=== PATIENT | female | born 1970 | race Caucasian/White ===

== ENCOUNTER 2018-06-21 16:32 | Observation (INO) | payer BC, SELFPAY ==
[2018-06-21] VITALS (15 sets, daily range): BP systolic 95–144; BP diastolic 54–91; PULSE 70–124; RESP 16–20; TEMP 35.9–36.8; O2SAT 95–100
--- NOTE | 2018-06-21 16:54 | DI.RAD_ITS ---
SYMPTOM/DIAGNOSIS: ABD PAIN ACUTE ABDOMINAL SERIES: Routine examination. Comparison is made with 07/29/15. PA CHEST: The heart is normal in size. The lungs are clear. The mediastinal structures and pleura appear intact. CONCLUSION: Normal chest. FLAT AND UPRIGHT ABDOMEN: There are dilated loops of air filled small bowel in the central abdomen with air fluid levels. There is a paucity of air seen in the colon. The findings are suspicious for a small bowel obstruction. No organomegaly or pneumoperitoneum is seen. The bones appear intact. IMPRESSION: Findings suspicious for a small bowel obstruction.
[2018-06-21] MEDS: Ketorolac 15 MG/ML VIAL IVP (17:10)
[2018-06-21] MEDS: Normal Saline 1,000 ML 1000 ML IV (17:11)
[2018-06-21 17:15] LABS: Absolute Eosinophil Count 0.07 k/cumm (0.0-0.7); Absolute Lymphocyte Count 1.33 k/cumm (1.2-3.4); Absolute Monocyte Count 0.69 k/cumm (0.11-0.7); Basophils % 0.4; Eosinophils % 0.8; HCT 43.8 % (36.0-46.0); Immature Grans % 0.3; Lymphocytes % 14.5; Mean Corp. HGB Concentration 34.2 g/dL (32.0-36.0); Mean Corpuscular Volume 84.6 fL (80-95); Monocytes % 7.5; Neutrophils % 76.5; Platelet Count 418 x1000/uL (130-400); RBC 5.18 m/cumm (4.00-5.20); RBC Distribution Width 13.6 % (11.7-14.6); White Blood Cell Count 9.16 k/cumm (4.4-10.8)
[2018-06-21 17:16] LABS: Abs Immature Grans 0.03 k/cumm (0.0-0.09); Absolute Basophil Count 0.04 k/cumm (0.0-0.2)
--- NOTE | 2018-06-21 17:18 | W.ED.GENAD ---
Discharge Plan Disposition Patient Disposition: [facility] INPATIENT Condition: Fair Discharge Details Chief Complaint: Abd Prob Clinical Impression: Small bowel obstruction, Crohns disease of small intestine Reason For Visit: SMALL BOWEL OBSTRUCTION Admit Date/Time: 06/21/18 18:56 Admit Provider: Eliud Myers Attending Provider: Eliud Myers Primary Care Provider: Roxana Cardenas ED Provider: Brian Leiva Discharge Data Discharge Date/Time-TO BE ENTERED AT DEPARTURE: 06/21/18 19:50 Medical Decision Making Patient presenting to the emergency department with chief complaint of abdominal pain due to Crohn's. Patient states that she ate a rutabaga that may have caused her symptoms to flareup. Yesterday evening she did take 40 mg of prednisone today she has taken multiple doses of ibuprofen but has noticed a slow steady increase of her discomfort throughout today but yesterday the prednisone did seem to help. Patient did attempt to call her primary care provider which requested she talk with her supervisor/port director and she was unable to get a hold of them. Patient denies normal bowel movements, some nausea and vomiting of clear fluids and liquids, denies any fever or chills. Plan to check labs, do plain film imaging, give prednisone, ketorolac due to patient not wanting narcotic pain medication, and liter of fluids. Patient states that this flareup feels similar to her previous ones and is more mild in nature compared to other ones that she has needed to be admitted for. Review of Labs show signs of inflammation with elevated CRP and ESR mild hyponatremia and otherwise nondiagnostic labs including no noted leukocytosis. X-ray imaging does show small bowel obstruction. Feel that this may be due to inflammatory changes with her Crohn's. Patient was reassessed and showed no improvement and stated only mild pain reduction after receiving ketorolac. Patient given order for morphine and general surgeon was contacted. Spoke with Dr. Cloud who agreed to come and evaluate the patient for admission to inpatient services. Patient was in agreement with this plan of care. HPI General Mode of arrival: ambulatory. Date/Time Provider Initiated Documentation: 06/21/18 16:39. Limitations to Documentation: no limitations. Information obtained by: patient, RN/, RN notes reviewed and old records reviewed. History of Present Illness 47 year old F presents to the emergency department with the chief complaint of Abdominal pain, Crohn's flareup, described as similar to prior episodes, with intensity rated at 8. Quality is described as sharp and other (crampy), and is localized to the abdomen. Patient reports no radiation. Patient started experiencing this day(s) (1) and it has been constant. No relieving factors improve symptom(s), Other factors that worsen symptoms (Possibly some food she ate 2 days ago) . Patient notes no other symptoms.. Patient did receive the following treatments prior to arrival, NSAID and other (40mg predisone she took yesterday) Related Data Home Medications Medication Instructions Recorded Confirmed omega-3 fatty acids-fish oil [Fish 1 ea PO DAILY 09/07/17 06/21/18 Oil] Previous Rx's Medication Instructions Recorded albuterol sulfate [ProAir HFA] 1 - 2 puff INHALATION Q4-6H PRN #3 11/29/17 inhaler nicotine 14 mg/24 hr daily 1 patch TD DAILY #14 each 06/17/18 transdermal patch nicotine 21 mg/24 hr daily 1 patch TD DAILY #14 each 06/17/18 transdermal patch nicotine 7 mg/24 hr daily 1 patch TD Q24H #14 each 06/17/18 transdermal patch Allergies Allergy/AdvReac Type Severity Reaction Status Date / Time No Known Allergies Allergy Unverified 12/19/17 11:39 General Stated Complaint: Abd Prob JUMA: 3 Review of Systems Constitutional Denies body ache(s), Denies chills and Denies fever(s) Cardiovascular Denies chest pain and Denies dyspnea Respiratory Denies dyspnea Gastrointestinal Reports as per HPI, Reports abdominal pain, Denies melena, Reports bloating, Denies coffee ground emesis, Denies diarrhea, Reports nausea, Reports vomiting and Denies hematemesis Genitourinary Denies dysuria Integumentary/Breasts Denies rash Neurologic Denies confusion and Denies sensory deficit Psychiatric Denies confusion [facility] Family History Mother Neoplasm Father Substance abuse Neoplasm Sister No problems noted. Sister No problems noted. Brother No problems noted. Brother No problems noted. Medical History Asthma Crohn's disease Tobacco use disorder Social History Smoking/Tobacco Use Status: Current every day Surgical History Colonoscopy w/ BX (11/27/16) Exam Const General: cooperative, in distress (holding abd) moderate and not ill appearing Orientation: alert, awake and oriented x3 HENMT Mouth: moist mucous membranes Resp Effort & Inspection: normal respiratory effort, able to speak in complete sentences and no respiratory distress Auscultation: clear to auscultation bilaterally Cardio Rate: regular rate Rhythm: regular rhythm Heart Sounds: S1 normal and S2 normal GI Inspection: non-distended Palpation: guarding other (Throughout) and tender in the LLQ, in the LUQ and periumbilically Auscultation: hypoactive bowel sounds Back/Spine/Pelvis Back: no CVA tenderness Skin General skin exam: no rashes or lesions noted Neuro General: alert, awake, oriented x3, moves all extremities and no focal motor deficits Sensory Exam: no sensory deficits noted Course Vital Signs Temperature 36.8 C 06/21/18 16:36 Pulse 124 H 06/21/18 16:36 Respiratory Rate 20 06/21/18 16:36 Blood Pressure 144/91 H 06/21/18 16:36 Pulse Oximetry 95 06/21/18 16:36 Temperature 36.8 C 06/21/18 16:36 Pulse 124 H 06/21/18 16:36 Respiratory Rate 20 06/21/18 16:36 Blood Pressure 144/91 H 06/21/18 16:36 Pulse Oximetry 95 06/21/18 16:36 Lab/Test Results Lab/Test Results: Laboratory Tests 06/21/18 16:57 WBC 9.16 RBC 5.18 Hgb 15.0 Hct 43.8 MCV 84.6 MCH 29.0 MCHC 34.2 RDW 13.6 Plt Count 418 H MPV 10.0 Immature Gran % 0.3 Neutrophils % 76.5 Lymphocytes % 14.5 Monocytes % 7.5 Eosinophils % 0.8 Basophils % 0.4 Absolute Neutrophils 7.00 H Absolute Lymphocytes 1.33 Absolute Monocytes 0.69 Absolute Eosinophils 0.07 Absolute Basophils 0.04
--- NOTE | 2018-06-21 17:25 | ED.GENADUL_ITS ---
Discharge Plan Disposition Patient Disposition: [facility] INPATIENT Condition: Fair Discharge Details Chief Complaint: Abd Prob Clinical Impression: Small bowel obstruction, Crohns disease of small intestine Reason For Visit: SMALL BOWEL OBSTRUCTION Admit Date/Time: 06/21/18 18:56 Admit Provider: Eliud Myers Attending Provider: Eliud Myers Primary Care Provider: Roxana Cardenas ED Provider: Brian Leiva Discharge Data Discharge Date/Time-TO BE ENTERED AT DEPARTURE: 06/21/18 19:50 Medical Decision Making Patient presenting to the emergency department with chief complaint of abdominal pain due to Crohn's. Patient states that she ate a rutabaga that may have caused her symptoms to flareup. Yesterday evening she did take 40 mg of prednisone today she has taken multiple doses of ibuprofen but has noticed a slow steady increase of her discomfort throughout today but yesterday the prednisone did seem to help. Patient did attempt to call her primary care provider which requested she talk with her pediatric neuropsychologist and she was unable to get a hold of them. Patient denies normal bowel movements, some nausea and vomiting of clear fluids and liquids, denies any fever or chills. Plan to check labs, do plain film imaging, give prednisone, ketorolac due to patient not wanting narcotic pain medication, and liter of fluids. Patient states that this flareup feels similar to her previous ones and is more mild in nature compared to other ones that she has needed to be admitted for. Review of Labs show signs of inflammation with elevated CRP and ESR mild hyponatremia and otherwise nondiagnostic labs including no noted leukocytosis. X-ray imaging does show small bowel obstruction. Feel that this may be due to inflammatory changes with her Crohn's. Patient was reassessed and showed no improvement and stated only mild pain reduction after receiving ketorolac. Patient given order for morphine and general surgeon was contacted. Spoke with Dr. Cloud who agreed to come and evaluate the patient for admission to inpatient services. Patient was in agreement with this plan of care. HPI General Mode of arrival: ambulatory . Date/Time Provider Initiated Documentation: 06/21/18 16:39 . Limitations to Documentation: no limitations . Information obtained by: patient, RN/, RN notes reviewed and old records reviewed . History of Present Illness 47 year old F presents to the emergency department with the chief complaint of Abdominal pain, Crohn's flareup, described as similar to prior episodes, with intensity rated at 8. Quality is described as sharp and other (crampy), and is localized to the abdomen. Patient reports no radiation. Patient started experiencing this day(s) (1) and it has been constant. No relieving factors improve symptom(s), Other factors that worsen symptoms (Possibly some food she ate 2 days ago) . Patient notes no other symptoms.. Patient did receive the following treatments prior to arrival, NSAID and other (40mg predisone she took yesterday) Related Data Home Medications Medication Instructions Recorded Confirmed omega-3 fatty acids-fish oil [Fish 1 ea PO DAILY 09/07/17 06/21/18 Oil] Previous Rx's Medication Instructions Recorded albuterol sulfate [ProAir HFA] 1 - 2 puff INHALATION Q4-6H PRN #3 11/29/17 inhaler nicotine 14 mg/24 hr daily 1 patch TD DAILY #14 each 06/17/18 transdermal patch nicotine 21 mg/24 hr daily 1 patch TD DAILY #14 each 06/17/18 transdermal patch nicotine 7 mg/24 hr daily 1 patch TD Q24H #14 each 06/17/18 transdermal patch Allergies Allergy/AdvReac Type Severity Reaction Status Date / Time No Known Allergies Allergy Unverified 12/19/17 11:39 General Stated Complaint: Abd Prob JUMA: 3 Review of Systems Constitutional Denies body ache(s), Denies chills and Denies fever(s) Cardiovascular Denies chest pain and Denies dyspnea Respiratory Denies dyspnea Gastrointestinal Reports as per HPI, Reports abdominal pain, Denies melena, Reports bloating, Denies coffee ground emesis, Denies diarrhea, Reports nausea, Reports vomiting and Denies hematemesis Genitourinary Denies dysuria Integumentary/Breasts Denies rash Neurologic Denies confusion and Denies sensory deficit Psychiatric Denies confusion [facility] Family History Mother Neoplasm Father Substance abuse Neoplasm Sister No problems noted. Sister No problems noted. Brother No problems noted. Brother No problems noted. Medical History Asthma Crohn's disease Tobacco use disorder Social History Smoking/Tobacco Use Status: Current every day Surgical History Colonoscopy w/ BX (11/27/16) Exam Const General: cooperative, in distress (holding abd) moderate and not ill appearing Orientation: alert, awake and oriented x3 HENMT Mouth: moist mucous membranes Resp Effort & Inspection: normal respiratory effort, able to speak in complete sentences and no respiratory distress Auscultation: clear to auscultation bilaterally Cardio Rate: regular rate Rhythm: regular rhythm Heart Sounds: S1 normal and S2 normal GI Inspection: non-distended Palpation: guarding other (Throughout) and tender in the LLQ, in the LUQ and periumbilically Auscultation: hypoactive bowel sounds Back/Spine/Pelvis Back: no CVA tenderness Skin General skin exam: no rashes or lesions noted Neuro General: alert, awake, oriented x3, moves all extremities and no focal motor deficits Sensory Exam: no sensory deficits noted Course Vital Signs Temperature 36.8 C 06/21/18 16:36 Pulse 124 H 06/21/18 16:36 Respiratory Rate 20 06/21/18 16:36 Blood Pressure 144/91 H 06/21/18 16:36 Pulse Oximetry 95 06/21/18 16:36 Temperature 36.8 C 06/21/18 16:36 Pulse 124 H 06/21/18 16:36 Respiratory Rate 20 06/21/18 16:36 Blood Pressure 144/91 H 06/21/18 16:36 Pulse Oximetry 95 06/21/18 16:36 Lab/Test Results Lab/Test Results: Laboratory Tests 06/21/18 16:57 WBC 9.16 RBC 5.18 Hgb 15.0 Hct 43.8 MCV 84.6 MCH 29.0 MCHC 34.2 RDW 13.6 Plt Count 418 H MPV 10.0 Immature Gran % 0.3 Neutrophils % 76.5 Lymphocytes % 14.5 Monocytes % 7.5 Eosinophils % 0.8 Basophils % 0.4 Absolute Neutrophils 7.00 H Absolute Lymphocytes 1.33 Absolute Monocytes 0.69 Absolute Eosinophils 0.07 Absolute Basophils 0.04
[2018-06-21 17:26] LABS: Albumin 2.8 g/dL (3.4-5.0); BUN 14 mg/dL (7-18); Bilirubin, Total 0.4 mg/dL (0.2-1.0); C-Reactive Protein 4.33 mg/dL (0.0-0.3); CREATININE 0.66 mg/dL (0.55-1.02); Calcium 8.5 mg/dL (8.5-10.1); Glucose 113 mg/dL (70-100)
[2018-06-21 17:27] LABS: ALT 13 U/L (12-78); AST 10 U/L (15-37); Alkaline Phosphatase 92 U/L (46-116); Anion Gap 8.8 mmol/L (3-11); CO2 27.2 mmol/L (21.0-32.0); Chloride 99 mmol/L (98-107); Potassium 3.6 mmol/L (3.5-5.1); Sodium 135 mmol/L (136-145)
--- NOTE | 2018-06-21 17:38 | DI.VRAD_ITS ---
EXAM: XR Abdomen 2 Views With XR Chest CLINICAL HISTORY: 47 years old, female; Pain; Abdominal pain TECHNIQUE: Frontal view of the chest, frontal view of the abdomen/pelvis and upright or decubitus view of the abdomen. COMPARISON: CR ABD FLAT UPRIGHT PA CHEST 12/04/2016 1:22 PM FINDINGS: Lungs: Unremarkable. No consolidation. Pleural space: Unremarkable. No pneumothorax. Heart: Unremarkable. No cardiomegaly. Mediastinum: Unremarkable. Intraperitoneal space: No free air. Gastrointestinal tract: Dilated loops of air-filled small bowel within the midabdomen with fluid levels on the upright examination consistent with small bowel obstruction. Relatively little gas within the colon. Organs: Unremarkable as visualized. Bones/joints: Unremarkable. IMPRESSION: Small bowel obstruction. Dictated and Authenticated by: Lonnie Lima MD. Ordering:ISA JEFFERSON MD
[2018-06-21] MEDS: predniSONE 20 MG TAB 60 MG PO (17:50)
[2018-06-21] MEDS: Ondansetron 4 MG/2 ML VIAL IVP (17:51)
[2018-06-21] MEDS: MORPHine 10 MG/ML VIAL 2 MG IVP (17:54)
[2018-06-21 18:07] LABS: ESR 28 MM/HR (0-20)
--- NOTE | 2018-06-21 19:13 | HPE_ITS ---
Date of service: 06/21/18 Time of Service: 19:07 Assessment and Plan (1) Small bowel obstruction: Start date: 06/20/18 Current visit: No Status: Acute 47-year-old woman with small bowel obstruction most likely secondary to Crohn's exacerbation. Will admit for conservative therapy: IV antibiotics, steroids, pain control, bowel rest. We will hold off on placing NG tube unless patient starts to have intractable nausea vomiting. Further recommendations be pending clinical and diagnostic findings History of Present Illness Chief Complaint: Small bowel obstruction Narrative: 47-year-old woman presenting to the emergency room with the 24 hours of crampy abdominal pain. She does have a history of Crohn's disease, and has had similar presentations with onset of a Crohn's flare. She usually takes steroids for the flare, but ran out after the onset of this crampy abdominal pain. She did have some nausea and vomiting associated with this. She denies any fever, chills, fatigue, malaise, weight loss. Her pain became progressively worse. She presented to the emergency room where abdominal x- rays demonstrated small bowel obstruction. Surgery was consulted. Review of Systems Constitutional Reports anorexia, Denies chills, Denies fatigue, Denies fever(s), Denies headache(s), Denies lethargy, Denies malaise, Reports night sweats and Reports poor appetite Eyes Patient Denies diplopia and Denies loss of vision ENT Denies vertigo, Denies dizziness, Denies headache(s), Denies epistaxis, Denies tinnitus and Denies sore throat Cardiovascular Denies chest pain, Denies syncope, Denies radiating jaw, neck or arm pain, Denies palpitations, Denies dyspnea and Denies dyspnea on exertion Respiratory Denies chest congestion, Denies cough, Denies dyspnea, Denies dyspnea on exertion and Denies wheezing Gastrointestinal Reports abdominal pain, Reports bloating, Denies change in bowel habits, Denies coffee ground emesis, Reports cramping, Denies nausea and Denies vomiting Musculoskeletal Denies back pain, Denies myalgias, Denies atrophy, Denies deformity and Denies arthralgias Integumentary/Breasts Denies pruritus, Denies lesions and Denies rash Neurologic Denies abnormal movements, Denies behavioral changes, Denies vertigo, Denies dizziness, Denies syncope, Denies headache(s), Denies focal weakness, Denies loss of vision, Denies convulsions, Denies seizure-like activity and Denies tremor(s) Psychiatric Denies abnormal sleep pattern, Denies behavioral changes, Denies difficulty concentrating, Denies irritability and Denies mood swings Endocrine Denies fatigue and Denies palpitations Hematologic/Lymphatic Denies easy bleeding and Denies easy bruising Allergic/Immunologic Denies wheezing PFSH Family History Mother Neoplasm Father Substance abuse Neoplasm Sister No problems noted. Sister No problems noted. Brother No problems noted. Brother No problems noted. Medical History Asthma Crohn's disease Tobacco use disorder Social History Smoking/Tobacco Use Status: Current every day Surgical History Colonoscopy w/ BX (11/27/16) Meds Home Medications Medication Instructions Recorded Confirmed Type omega-3 fatty acids-fish oil [Fish 1 ea PO DAILY 09/07/17 06/21/18 History Oil] Allergies Allergy/AdvReac Type Severity Reaction Status Date / Time No Known Allergies Allergy Unverified 12/19/17 11:39 Exam Const General: cooperative, comfortable, no acute distress and well groomed Nutritional Appearance: thin Orientation: alert, awake and oriented x3 HENMT Head: normal to inspection, normocephalic and atraumatic Ears: hearing grossly normal bilaterally General nose exam: external nose normal and no nasal discharge Face and sinus: normal facial exam Mouth: oral mucosae normal Eyes General: appearance normal, both eyes and all related structures Sclera: sclerae normal Pupils: PERRL EOM: EOM intact bilaterally Neck Neck: normal visual inspection, trachea midline and supple Resp Effort & Inspection: normal respiratory effort, able to speak in complete sentences, no audible wheezes and not labored Cardio Jugular venous pressure: no JVD Rate: regular rate Rhythm: regular rhythm GI Inspection: distended (mild), no incisions and no obesity Palpation: soft and tender periumbilically; with no rebound tenderness Back/Spine/Pelvis Back: no CVA tenderness Skin General skin exam: no rashes or lesions noted and turgor normal Neuro General: moves all extremities, no focal motor deficits and CN's II-XI intact bilaterally Extrem General: normal to inspection, normal capillary refill and no clubbing, cyanosis or edema Psych Appearance: grossly normal Mental Status: mental status grossly normal Affect: normal affect Attitude: cooperative Judgment: judgment good Results Labs : 06/21/18 16:57 06/21/18 16:57 Laboratory Results - last 24 hr 06/21/18 06/21/18 06/21/18 16:57 16:57 16:57 WBC 9.16 RBC 5.18 Hgb 15.0 Hct 43.8 MCV 84.6 MCH 29.0 MCHC 34.2 RDW 13.6 Plt Count 418 H MPV 10.0 Abs Immat Gran (auto) Immature Gran % 0.3 Neutrophils % 76.5 Lymphocytes % 14.5 Monocytes % 7.5 Eosinophils % 0.8 Basophils % 0.4 Absolute Neutrophils 7.00 H Band Neutrophils Absolute Lymphocytes 1.33 Absolute Monocytes 0.69 Absolute Eosinophils 0.07 Absolute Basophils 0.04 Metamyelocytes Myelocytes Promyelocytes Nucleated RBCs Differential Comment Atypical Lymphocytes Other Cell Type RBC Morphology Polychromasia Hypochromasia Poikilocytosis Basophilic Stippling Anisocytosis Microcytosis Macrocytosis Spherocytes Target Cells Tear Drop Cells Ovalocytes Stomatocytes [place] Bodies [place] Cells Acanthocytes (Spur) Schistocytes ESR Sodium 135 L Potassium 3.6 Chloride 99 Carbon Dioxide 27.2 Anion Gap 8.8 BUN 14 Creatinine 0.66 Estimated GFR/1.73 m2 >= 60.00 Glucose 113 H Calcium 8.5 Magnesium Total Bilirubin 0.4 AST 10 L ALT 13 Alkaline Phosphatase 92 Troponin I C-Reactive Protein 4.33 H Total Protein 7.0 Albumin 2.8 L 06/21/18 06/21/18 06/21/18 16:57 17:44 17:44 WBC Cancelled RBC Cancelled Hgb Cancelled Hct Cancelled MCV Cancelled MCH Cancelled MCHC Cancelled RDW Cancelled Plt Count Cancelled MPV Cancelled Abs Immat Gran (auto) Cancelled Immature Gran % Cancelled Neutrophils % Cancelled Lymphocytes % Cancelled Monocytes % Cancelled Eosinophils % Cancelled Basophils % Cancelled Absolute Neutrophils Cancelled Band Neutrophils Cancelled Absolute Lymphocytes Cancelled Absolute Monocytes Cancelled Absolute Eosinophils Cancelled Absolute Basophils Cancelled Metamyelocytes Cancelled Myelocytes Cancelled Promyelocytes Cancelled Nucleated RBCs Cancelled Differential Comment Cancelled Atypical Lymphocytes Cancelled Other Cell Type Cancelled RBC Morphology Cancelled Polychromasia Cancelled Hypochromasia Cancelled Poikilocytosis Cancelled Basophilic Stippling Cancelled Anisocytosis Cancelled Microcytosis Cancelled Macrocytosis Cancelled Spherocytes Cancelled Target Cells Cancelled Tear Drop Cells Cancelled Ovalocytes Cancelled Stomatocytes Cancelled [place] Bodies Cancelled Aspen Cells Cancelled Acanthocytes (Spur) Cancelled Schistocytes Cancelled ESR 28 H Sodium Cancelled Potassium Cancelled Chloride Cancelled Carbon Dioxide Cancelled Anion Gap Cancelled BUN Cancelled Creatinine Cancelled Estimated GFR/1.73 m2 Cancelled Glucose Cancelled Calcium Cancelled Magnesium Cancelled Total Bilirubin Cancelled AST Cancelled ALT Cancelled Alkaline Phosphatase Cancelled Troponin I Cancelled C-Reactive Protein Total Protein Cancelled Albumin Cancelled
[2018-06-21] MEDS: Hydrocortisone SOD SUC. 100 MG VIAL 50 MG IVP (20:32)
[2018-06-21] MEDS: Lactated Ringers 1,000 ML 100 ML IV (20:38)
[2018-06-21] MEDS: Normal Saline Flush 10 ML SYR IVP (20:38)
[2018-06-22] MEDS: ACETAMINOPHEN 1,000 MG/100 ML BTL 400 MG IVPB ×2 (01:26→12:59)
[2018-06-22 03:20] VITALS: BP 92/54; PULSE 65; RESP 18; TEMP 36.9; O2SAT 98
[2018-06-22] MEDS: Normal Saline Flush 10 ML SYR IVP ×3 (04:08→12:02)
[2018-06-22] MEDS: Hydrocortisone SOD SUC. 100 MG VIAL 50 MG IVP ×2 (04:09→12:03)
[2018-06-22] MEDS: Lactated Ringers 1,000 ML 100 ML IV (06:34)
[2018-06-22 07:32] LABS: Anion Gap 7.1 mmol/L (3-11); BUN 11 mg/dL (7-18); CO2 24.9 mmol/L (21.0-32.0); CREATININE 0.62 mg/dL (0.55-1.02); Calcium 8.1 mg/dL (8.5-10.1); Chloride 105 mmol/L (98-107); Glucose 124 mg/dL (70-100); Sodium 137 mmol/L (136-145)
--- NOTE | 2018-06-22 08:22 | DI.RAD_ITS ---
SYMPTOM/DIAGNOSIS: F/U SMALL BOWEL OBSTRUCTION ACUTE ABDOMINAL SERIES: Comparison is made with 06/21/18. PA CHEST: Heart size and pulmonary vasculature are within normal limits. The lungs show no focal consolidating infiltrates, effusions or pneumothoraces. IMPRESSION: No acute pulmonary process. FLAT AND UPRIGHT ABDOMEN: There are again seen dilated loops of small bowel, predominantly in the left abdomen with fluid levels. The findings are suspicious for a bowel obstruction versus ileus. There has been increased air seen within the colon. There is a moderate amount of retained stool in the colon. No organomegaly or pneumoperitoneum is seen. The bones and joints are unremarkable. IMPRESSION: Findings suggestive of an ileus versus small bowel obstruction.
[2018-06-22 08:35] VITALS: BP 109/70; PULSE 63; RESP 18; TEMP 36.7; O2SAT 97
--- NOTE | 2018-06-22 08:42 | DI.VRAD_ITS ---
EXAM: XR Abdomen 2 Views with XR Chest 1 View EXAM DATE/TIME: 06/22/2018 12:00 AM CLINICAL HISTORY: 47 years old, female; Pain; Abdominal pain; Other: Sbo TECHNIQUE: XR of the abdomen (2 views) with XR chest (1 view). COMPARISON: CR XR ABD FLAT UPRIGHT PA CHEST 06/21/2018 5:12 PM FINDINGS: Lungs: See Soft Tissues Finding. Pleural space: Normal. No pneumothorax. Heart/Mediastinum: Normal. No cardiomegaly. Gastrointestinal tract: Multiple loops of dilated bowel in the left abdomen may represent obstruction or ileus. Constipation in the right colon Intraperitoneal space: Normal. No free air. Bones/joints: Normal. No acute fracture. Soft tissues: Opacities in the bases are thought to be due to overlying breast tissue. No focal consolidation IMPRESSION: Multiple loops of dilated bowel in the left abdomen may represent obstruction or ileus. Dictated and Authenticated by: Shirley Matias MD. Ordering:VANESSA WAY MD
--- NOTE | 2018-06-22 09:46 | PDOC.CMIN ---
- If Service Date Differs Date of service: 06/22/18 Time of Service: 09:46 Care Management Initial Assess REASON FOR HOSPITALIZATION:: Small bowel obstruction PAST MEDICAL HISTORY/PAST SURGICAL HISTORY:: Asthma, Crohn's disease, tobacco use disorder, Colonoscopy PREVIOUS FUNCTIONAL STATUS/SOCIAL/FAMILY SUPPORTS:: Yenny resides with her Anselmo of 25 years in [place]. She has one son whom resides with her whom is supportive. Yenny states that she does not work at this time. She is independent, drives, and manages ADL's CURRENT FUNCTIONAL STATUS:: Lying in bed this morning, pleasant and open to discussion. ADVANCE DIRECTIVES:: None on file Has patient been provided with information about the portal?: Yes Did the patient sign up for the portal?: No CODE STATUS:: Full Code INSURANCE COVERAGE / FINANCIAL ISSUES:: [employer]BS CURRENT HOME/COMMUNITY SERVICES/EQUIPMENT:: Currently Yenny has no services or medical equipment in the community. PRIMARY CARE PHYSICIAN:: Roxana Cardenas POTENTIAL DISCHARGE NEEDS:: F/U appointment with Dr. Myers PATIENT/FAMILY EDUCATION NEEDS:: Review DC instructions, any limitations, and ongoing DC planning discussion. Review Ask Me Three ANTICIPATED BARRIERS TO DISCHARGE:: None identified at this time. TRANSPORTATION:: Via private vehicle with Anselmo PLAN:: Yenny will DC home with no anticipated services. She will F/U with Dr. Myers and plan of care as prescribed. Her Anselmo will transport when ready.
--- NOTE | 2018-06-22 10:25 | PHARADMIT ---
Admission Pharmacy Clinical Review small bowel obstruction Code Status Full Code Current Weight 56.699 kg Renally Cleared and Narrow Therapeutic Index Meds Crcl ~77.81 mL/min current meds okay QTc Value / Action Taken BP Control, Fever BP 108/70 afebrile Electrolytes reviewed within normal limits DVT Prophylaxis none Opiate Usage / Scheduled Bowel Regimen Ordered prn/no Plt/SCr for Heparin / Enoxaparin plt 418 SCr 0.62 INR for Warfarin n/a H/H stable, WBC/Bands h/h 15.0/43.8 wbc 9.16 Antibiotic appropriateness none Cultures and Sensitivities none Surgical ABX d/c within 24 hr n/a DM control / Insulin Dosing BG 124 none Heart Failure (Check EF%) (MARILIA's, B-Block, Diuretics) none IV to PO Switch n/a Home Meds Reviewed yes Home Meds Not Ordered omega-3 Comments
--- NOTE | 2018-06-22 11:19 | PGE_ITS ---
Date of service: 06/22/18 Time of Service: 11:13 Assessment and Plan (1) Small bowel obstruction: Start date: 06/20/18 Current visit: No Status: Acute Bowel obstruction appears to be resolving. Patient's passing flatus no bowel movement yet. We will start to advance diet. Continue IV steroids, and will send home on taper. Subjective Patient reports: no new complaints, feels better and flatus; denies nausea and vomiting Exam Const General: cooperative, comfortable and no acute distress Orientation: alert, awake and oriented x3 Resp Effort & Inspection: normal respiratory effort, able to speak in complete sentences, no audible wheezes and not labored Cardio Rate: regular rate Rhythm: regular rhythm Pulses: normal peripheral pulses GI Inspection: normal to inspection and non-distended Palpation: soft, no guarding, not rigid and nontender Skin General skin exam: dry skin Objective Objective Clinical Data: Vital Signs Temp 36.7 C 06/22/18 08:35 Pulse 63 06/22/18 08:35 Resp 18 06/22/18 08:35 BP 109/70 06/22/18 08:35 Pulse Ox 97 06/22/18 08:35 Intake & Output 06/21/18 06/22/18 06/22/18 18:59 06:59 18:59 Intake Total 1000 / 1000 2093.333 / 2093.333 841.667 / 841.667 Balance 1000 / 1000 2092.333 / 2092.333 841.667 / 841.667 Weight 56.699 kg 56.699 kg Intake: IV 1000 / 1000 2092.333 / 2092.333 151.667 / 151.667 Oral 0 / 0 690 / 690 Other: Comment VOID X 1 DURING NOC. Voiding Methods Toilet Laboratory Results - last 24 hr 06/22/18 06:30 WBC RBC Hgb Hct MCV MCH MCHC RDW Plt Count MPV Abs Immat Gran (auto) Immature Gran % Neutrophils % Lymphocytes % Monocytes % Eosinophils % Basophils % Absolute Neutrophils Band Neutrophils Absolute Lymphocytes Absolute Monocytes Absolute Eosinophils Absolute Basophils Metamyelocytes Myelocytes Promyelocytes Nucleated RBCs Differential Comment Atypical Lymphocytes Other Cell Type RBC Morphology Polychromasia Hypochromasia Poikilocytosis Basophilic Stippling Anisocytosis Microcytosis Macrocytosis Spherocytes Target Cells Tear Drop Cells Ovalocytes Stomatocytes [place] Bodies [place] Cells Acanthocytes (Spur) Schistocytes ESR Sodium 137 Potassium 4.0 Chloride 105 Carbon Dioxide 24.9 Anion Gap 7.1 BUN 11 Creatinine 0.62 Estimated GFR/1.73 m2 >= 60.00 Glucose 124 H Calcium 8.1 L Magnesium Total Bilirubin AST ALT Alkaline Phosphatase Troponin I C-Reactive Protein Total Protein Albumin 06/22/2018 12:00 AM CLINICAL HISTORY: 47 years old, female; Pain; Abdominal pain; Other: Sbo TECHNIQUE: XR of the abdomen (2 views) with XR chest (1 view). COMPARISON: CR XR ABD FLAT UPRIGHT PA CHEST 06/21/2018 5:12 PM FINDINGS: Lungs: See Soft Tissues Finding. Pleural space: Normal. No pneumothorax. Heart/Mediastinum: Normal. No cardiomegaly. Gastrointestinal tract: Multiple loops of dilated bowel in the left abdomen may represent obstruction or ileus. Constipation in the right colon Intraperitoneal space: Normal. No free air. Bones/joints: Normal. No acute fracture. Soft tissues: Opacities in the bases are thought to be due to overlying breast tissue. No focal consolidation IMPRESSION: Multiple loops of dilated bowel in the left abdomen may represent obstruction or ileus.
[2018-06-22 16:04] VITALS: BP 101/51; PULSE 73; RESP 18; TEMP 36.3; O2SAT 96
--- NOTE | 2018-06-22 17:14 | DSE_ITS ---
Date of service: 06/22/18 Time of Service: 17:09 DS: Diagnosis Discharge Diagnosis (1) Small bowel obstruction: Status: Acute (2) Crohns disease of small intestine: Status: Chronic Discharge Plan Disposition Patient Disposition: HOME Condition: Fair Discharge Details Reason For Visit: SMALL BOWEL OBSTRUCTION Admit Date/Time: 06/21/18 18:56 Admit Provider: Eliud Myers Attending Provider: Eliud Myers Primary Care Provider: Roxana Cardenas [facility] Course Hospital Course: 47-year-old woman who presented to the emergency room with 24 hours of worsening crampy abdominal pain. She has a known history of Crohn's with a known stricture of the small bowel. Subsequent workup demonstrated small bowel obstruction. She was admitted for conservative treatment of her small bowel and started on steroid course. She did well with this and within 24 hours of admission she started to pass flatus, had a bowel movement, pain had resolved. She was tolerating a digestive soft diet, without pain, afebrile, and walking without difficulty. She was discharged home to follow-up with her primary and finish a oral steroid taper. Home Meds and New Rx's Prescriptions: New prednisone 10 mg tablet 10 mg PO DAILY Qty: 15 RF: 1 No Action omega-3 fatty acids-fish oil [Fish Oil] 1 EACH capsule 1 ea PO DAILY RF: 0 albuterol sulfate [ProAir HFA] 200 PUFF HFA aerosol inhaler 1 - 2 puff Inhalation Q4-6H PRN Qty: 3 RF: 3 nicotine [Nicoderm CQ] 14 mg/24 hr patch 24 hour 1 patch TD DAILY Qty: 14 RF: 0 nicotine [Nicoderm CQ] 21 mg/24 hr patch 24 hour 1 patch TD DAILY Qty: 14 RF: 0 nicotine [Nicoderm CQ] 7 mg/24 hr patch 24 hour 1 patch TD Q24H Qty: 14 RF: 3 Discharge Instructions Instructions: Bowel Obstruction (DC) Care Plan Goals: Discharge home Stand Alone Forms: Nursing Discharge Form Referrals: Roxana Cardenas DO [Primary Care Provider] - (1 weeks for post hospitalization check) MAIKEL DENIS [ NON-[facility] STAFF PHYSICIAN] - None (Follow up in 1-2 weeks for SBO due to Crohn's flare) Activity:: Activity as Tolerated Equipment/Supplies:: No Equipment Needed Discharge Orders Discharge Orders: Discharge Order (Routine); Ordered 06/22/18 Ordered By: Eliud Myers DS: Summary Status at Discharge Functional status at discharge: independent ambulation Overall status at discharge: patient is progressing back to baseline Time Spent with Patient Less than 30 minutes Exam Narrative Exam Narrative: General: Awake, alert, oriented x 3, well groomed Neurological: cranial nerves II-12 grossly intact, moves all extremities, no focal deficits. HEENT : Normacephalic, atruamatic, pupils are equal, round, and reactive to light, extraocular muscles intact, mucousa moist and pink. Neck: normal visual inspection, supple, trachea midline. Heart: regular rate, rhythm Respiratory: No wheezing, cough, sputum production, or chest congestion. breathing unlabored. Abdomen: Soft, non-tender, non-distended, no hernias. Extremities: no cyanosis, clubbing or edema. Integument: warm, dry, normal turgor, no rashes, or lesion. DS: Data Vitals/I&O Vitals and I&O: Vital Signs Temperature 36.3 C L 06/22/18 16:04 Temperature Source Tympanic 06/22/18 16:04 Pulse 73 06/22/18 16:04 Pulse Rhythm Regular 06/22/18 08:30 Respiratory Rate 18 06/22/18 16:04 Respiratory Effort 06/22/18 08:30 Respiratory Depth Normal 06/22/18 08:30 Respiratory Pattern Normal 06/22/18 08:30 Blood Pressure 101/51 L 06/22/18 16:04 Blood Pressure Mean 64 06/21/18 19:30 Blood Pressure Position Sitting 06/21/18 16:36 Pulse Oximetry 96 06/22/18 16:04 Oxygen Delivery Method Room Air 06/22/18 16:04 Oxygen Flow Rate 0 06/22/18 16:04 Pain Level 3 06/22/18 12:59 Comment 06/22/18 03:20 Intake & Output 06/21/18 06/22/18 06/22/18 18:59 06:59 18:59 Intake Total 1000 / 1000 2092.333 / 2092.333 1730.000 / 1730.000 Balance 1000 / 1000 2092.333 / 2092.333 1730.000 / 1730.000 Weight 56.699 kg 56.699 kg Intake: IV 1000 / 1000 2092.333 / 2092.333 920.000 / 920.000 Oral 0 / 0 810 / 810 Other: Comment VOID X 1 DURING NOC. Voiding Methods Toilet Completed studies during hospitalization [Text1]: 06/22/2018 12:00 AM CLINICAL HISTORY: 47 years old, female; Pain; Abdominal pain; Other: Sbo CR XR ABD FLAT UPRIGHT PA CHEST 06/21/2018 5:12 PM FINDINGS: Lungs: See Soft Tissues Finding. Pleural space: Normal. No pneumothorax. Heart/Mediastinum: Normal. No cardiomegaly. Gastrointestinal tract: Multiple loops of dilated bowel in the left abdomen may represent obstruction or ileus. Constipation in the right colon Intraperitoneal space: Normal. No free air. Bones/joints: Normal. No acute fracture. Soft tissues: Opacities in the bases are thought to be due to overlying breast tissue. No focal consolidation IMPRESSION: Multiple loops of dilated bowel in the left abdomen may represent obstruction or ileus. Labs on day of discharge: Labs from last 24 hours 06/22/18 06/21/18 06/21/18 06:30 17:44 17:44 WBC Cancelled RBC Cancelled Hgb Cancelled Hct Cancelled MCV Cancelled MCH Cancelled MCHC Cancelled RDW Cancelled Plt Count Cancelled MPV Cancelled Abs Immat Gran (auto) Cancelled Immature Gran % Cancelled Neutrophils % Cancelled Lymphocytes % Cancelled Monocytes % Cancelled Eosinophils % Cancelled Basophils % Cancelled Absolute Neutrophils Cancelled Band Neutrophils Cancelled Absolute Lymphocytes Cancelled Absolute Monocytes Cancelled Absolute Eosinophils Cancelled Absolute Basophils Cancelled Metamyelocytes Cancelled Myelocytes Cancelled Promyelocytes Cancelled Nucleated RBCs Cancelled Differential Comment Cancelled Atypical Lymphocytes Cancelled Other Cell Type Cancelled RBC Morphology Cancelled Polychromasia Cancelled Hypochromasia Cancelled Poikilocytosis Cancelled Basophilic Stippling Cancelled Anisocytosis Cancelled Microcytosis Cancelled Macrocytosis Cancelled Spherocytes Cancelled Target Cells Cancelled Tear Drop Cells Cancelled Ovalocytes Cancelled Stomatocytes Cancelled Jacob[place] Bodies Cancelled [place] Cells Cancelled Acanthocytes (Spur) Cancelled Schistocytes Cancelled ESR Sodium 137 Cancelled Potassium 4.0 Cancelled Chloride 105 Cancelled Carbon Dioxide 24.9 Cancelled Anion Gap 7.1 Cancelled BUN 11 Cancelled Creatinine 0.62 Cancelled Estimated GFR/1.73 m2 >= 60.00 Cancelled Glucose 124 H Cancelled Calcium 8.1 L Cancelled Magnesium Cancelled Total Bilirubin Cancelled AST Cancelled ALT Cancelled Alkaline Phosphatase Cancelled Troponin I Cancelled C-Reactive Protein Total Protein Cancelled Albumin Cancelled 06/21/18 06/21/18 06/21/18 16:57 16:57 16:57 WBC 9.16 RBC 5.18 Hgb 15.0 Hct 43.8 MCV 84.6 MCH 29.0 MCHC 34.2 RDW 13.6 Plt Count 418 H MPV 10.0 Abs Immat Gran (auto) Immature Gran % 0.3 Neutrophils % 76.5 Lymphocytes % 14.5 Monocytes % 7.5 Eosinophils % 0.8 Basophils % 0.4 Absolute Neutrophils 7.00 H Band Neutrophils Absolute Lymphocytes 1.33 Absolute Monocytes 0.69 Absolute Eosinophils 0.07 Absolute Basophils 0.04 Metamyelocytes Myelocytes Promyelocytes Nucleated RBCs Differential Comment Atypical Lymphocytes Other Cell Type RBC Morphology Polychromasia Hypochromasia Poikilocytosis Basophilic Stippling Anisocytosis Microcytosis Macrocytosis Spherocytes Target Cells Tear Drop Cells Ovalocytes Stomatocytes Jacob-[place] Bodies [place] Cells Acanthocytes (Spur) Schistocytes ESR 28 H Sodium Potassium Chloride Carbon Dioxide Anion Gap BUN Creatinine Estimated GFR/1.73 m2 Glucose Calcium Magnesium Total Bilirubin AST ALT Alkaline Phosphatase Troponin I C-Reactive Protein 4.33 H Total Protein Albumin 06/21/18 16:57 WBC RBC Hgb Hct MCV MCH MCHC RDW Plt Count MPV Abs Immat Gran (auto) Immature Gran % Neutrophils % Lymphocytes % Monocytes % Eosinophils % Basophils % Absolute Neutrophils Band Neutrophils Absolute Lymphocytes Absolute Monocytes Absolute Eosinophils Absolute Basophils Metamyelocytes Myelocytes Promyelocytes Nucleated RBCs Differential Comment Atypical Lymphocytes Other Cell Type RBC Morphology Polychromasia Hypochromasia Poikilocytosis Basophilic Stippling Anisocytosis Microcytosis Macrocytosis Spherocytes Target Cells Tear Drop Cells Ovalocytes Stomatocytes Jacob-[place] Bodies [place] Cells Acanthocytes (Spur) Schistocytes ESR Sodium 135 L Potassium 3.6 Chloride 99 Carbon Dioxide 27.2 Anion Gap 8.8 BUN 14 Creatinine 0.66 Estimated GFR/1.73 m2 >= 60.00 Glucose 113 H Calcium 8.5 Magnesium Total Bilirubin 0.4 AST 10 L ALT 13 Alkaline Phosphatase 92 Troponin I C-Reactive Protein Total Protein 7.0 Albumin 2.8 L
== END 2018-06-22 17:18 | disposition home or self-care (01) ==
LOC: ER 19:40 → MS 19:51
PROVIDERS: Admitting Provider Surgery; Emergency Provider Nurse Practitioner Family; PCP Student in an Organized Health Care Education/Training Program; Visit Provider Surgery
DX: K56.609 Unspecified intestinal obstruction, unspecified as to partial versus complete obstruction; K50.018 Crohn's disease of small intestine with other complication; F17.210 Nicotine dependence, cigarettes, uncomplicated
CPT/HCPCS: 36415; 80048; 80053; 85652; 93005; 96361; 96374; 96375; 99217; 99219; 99224; 99285; 74022; 83735; 84484; 85025; 86140; 93010; 99284; G0378; J0131; J1720; J1885; J2270; J2405; J7512

== ENCOUNTER 2018-07-22 15:53 | Outpatient (CLI) | payer BC, SELFPAY ==
--- NOTE | 2018-07-22 16:12 | DI.RAD_ITS ---
SYMPTOM/DIAGNOSIS: CROHNS WITH OBSTRUCTION, K50.912 KUB AND UPRIGHT ABDOMEN: There are multiple dilated loops of small bowel in the upper abdomen with air fluid levels. Little gas is seen in the colon. The findings are suspicious for bowel obstruction. The visualized portions of the lung bases are clear. IMPRESSION: Findings suspicious for small bowel obstruction.
== END 2018-07-22 16:13 ==
PROVIDERS: PCP Student in an Organized Health Care Education/Training Program; Visit Provider Internal Medicine Gastroenterology
DX: K50.912 Crohn's disease, unspecified, with intestinal obstruction (principal); K56.609 Unspecified intestinal obstruction, unspecified as to partial versus complete obstruction
CPT/HCPCS: 74019

== ENCOUNTER 2018-07-23 10:33 | Emergency (ER) | payer BC, SELFPAY ==
[2018-07-23 10:50] VITALS: BP 157/110; PULSE 102; RESP 14; TEMP 37; O2SAT 97
--- NOTE | 2018-07-23 11:38 | W.ED.GENAD ---
Discharge Plan Disposition Patient Disposition: HOME Condition: Fair Discharge Details Chief Complaint: Recheck Clinical Impression: SBO (small bowel obstruction) Primary Care Provider: Roxana Cardenas ED Provider: Rossy Conway Home Meds and New Rx's Prescriptions: New prednisone 10 mg tablet 40 mg PO DAILY Qty: 20 RF: 0 Continue omega-3 fatty acids-fish oil [Fish Oil] 1 EACH capsule 1 ea PO DAILY RF: 0 albuterol sulfate [ProAir HFA] 200 PUFF HFA aerosol inhaler 1 - 2 puff Inhalation Q4-6H PRN Qty: 3 RF: 3 nicotine [Nicoderm CQ] 14 mg/24 hr patch 24 hour 1 patch TD DAILY Qty: 14 RF: 0 nicotine [Nicoderm CQ] 21 mg/24 hr patch 24 hour 1 patch TD DAILY Qty: 14 RF: 0 nicotine [Nicoderm CQ] 7 mg/24 hr patch 24 hour 1 patch TD Q24H Qty: 14 RF: 3 Discontinued prednisone 10 mg tablet 20 mg PO DAILY RF: 0 Discharge Instructions Instructions: Bowel Obstruction (ED) Additional Instructions: Encourage hydration. Please increase prednisone dosing as advised by Dr. Denis to 40mg daily. He will see you this week in clinic for follow up. Please call his office to schedule appointment. If you develop abdominal pain, fevers/chills, nausea/vomiting, stop passing flatus or develop other new/worsening symptoms please seek care urgently once again. Please bring CD of x-ray to your upcoming appointment. Referrals: MAIKEL DENIS [ NON-[facility] STAFF PHYSICIAN] - ([phone]) Discharge Data Discharge Date/Time-TO BE ENTERED AT DEPARTURE: 07/23/18 12:15 Medical Decision Making Patient is a 47 year old female with history of saloni's, presenting today with chief complaint of abdominal discomfort. Reports that she has outpatient upright abdominal XR yesterday. Was seen by her police pilot yesterday who was concerned she may have developed a recurrent blockage. Ordered outpatient imaging, patient has not yet received results. I contacted the radiologist who reviewed the imaging. She noted the small bowel to be fairly dilated, suspicious for obstruction. Does not note any free air. On exam, the patient appears nontoxic. She is resting comfortably. Her abdomen does appear slightly distended, she reports it is down from yesterday. Reports is been passing flatus, had a bowel movement this morning. No change in her appetite. Reports that overall she is feeling improved from yesterday. Reports that the distention has waxed and waned over the past 24 hours. Patient does take daily prednisone, is currently taking 20 mg daily. This patient looks quite good, has been passing flatus, having bowel movements with normal appetite, I will consult with Dr. Denis. For the patient's report, it sounds that he had planned on managing her as an outpatient. She was admitted recently for obstruction. At that point, the patient reports that her pain was much increased compared to how it is today, at that time she is experiencing nausea and vomiting Spoke with Dr. Denis regarding imaging, patient's presentation and her concerns. He requested that he receive a disc, he also reports that he see the patient this week. We will send copy of images with the patient. He also has the patient have her prednisone increased to 40 mg daily from her typical 20. He does not feel that admission at this point is necessary. He did advise that given the patient's history, she is on her way to surgery. Discussed this plan with the patient. Again, she reports she is feeling improved from yesterday. Agrees to increase in prednisone. She does have 10 mg tablets that was previously prescribed by Dr. Denis is concerned that this may begin to run low. I will refill this prescription for she will continue with the 40 mg of prednisone until evaluated by Dr. valdez at the end of the week. Encourage hydration. She was given strict return precautions. Patient has had issues with obstructions historically that have required hospitalization as well aware of worsening symptoms once he care urgently once again. All of her questions and concerns were addressed and she is in agreement with this plan. [facility] General Mode of arrival: ambulatory. Date/Time Provider Initiated Documentation: 07/23/18 11:10. Limitations to Documentation: no limitations. Information obtained by: patient. History of Present Illness 47 year old F presents to the emergency department with the chief complaint of diffuse abdominal discomfort, described as moderate, with intensity rated at 5. Quality is described as aching, and is localized to the abdomen. Patient reports no radiation. Patient started experiencing this day(s) and it has been intermittent. No relieving factors improve symptom(s), Eating worsens symptoms (dietary dependant ) . Patient notes no other symptoms.; denies chest pain, cough, fever/chills, headaches, loss of appetite, nausea/vomiting, rash and shortness of breath. Patient did receive the following treatments prior to arrival, other (patient is on daily prednisone ) Related Data Home Medications Medication Instructions Recorded Confirmed omega-3 fatty acids-fish oil [Fish 1 ea PO DAILY 09/07/17 07/23/18 Oil] albuterol sulfate [ProAir HFA] 1 - 2 puff INHALATION Q4-6H PRN #3 11/29/17 07/23/18 inhaler nicotine 14 mg/24 hr daily 1 patch TD DAILY #14 each 06/17/18 07/23/18 transdermal patch nicotine 21 mg/24 hr daily 1 patch TD DAILY #14 each 06/17/18 07/23/18 transdermal patch nicotine 7 mg/24 hr daily 1 patch TD Q24H #14 each 06/17/18 07/23/18 transdermal patch prednisone 40 mg PO DAILY #20 tab 07/23/18 Previous Rx's Medication Instructions Recorded albuterol sulfate [ProAir HFA] 1 - 2 puff INHALATION Q4-6H PRN #3 11/29/17 inhaler nicotine 14 mg/24 hr daily 1 patch TD DAILY #14 each 06/17/18 transdermal patch nicotine 21 mg/24 hr daily 1 patch TD DAILY #14 each 06/17/18 transdermal patch nicotine 7 mg/24 hr daily 1 patch TD Q24H #14 each 06/17/18 transdermal patch prednisone 40 mg PO DAILY #20 tab 07/23/18 Allergies Allergy/AdvReac Type Severity Reaction Status Date / Time No Known Allergies Allergy Unverified 07/23/18 10:54 General Stated Complaint: Recheck JUMA: 3 Review of Systems Constitutional Reports as per HPI Cardiovascular Reports as per HPI Respiratory Reports as per HPI Gastrointestinal Reports as per HPI, Reports abdominal pain, Reports belching, Reports bloating, Denies change in bowel habits, Denies tenesmus, Denies change in stool character, Denies constipation, Denies cramping, Reports excessive flatus, Denies nausea and Denies vomiting Genitourinary Reports system reviewed and no additional complaints, except as docu (denies any change in urinary habits) Musculoskeletal Denies back pain Integumentary/Breasts Denies rash Exam Const General: cooperative, healthy appearing, comfortable, no acute distress, well developed and well groomed Nutritional Appearance: average body habitus and well nourished Orientation: alert and awake Eyes General: appearance normal, both eyes and all related structures Resp Effort & Inspection: normal respiratory effort, able to speak in complete sentences and no respiratory distress Auscultation: clear to auscultation bilaterally, no rales, no rhonchi and no wheezes Cardio Rate: regular rate Rhythm: regular rhythm Heart Sounds: S1 normal and S2 normal GI Inspection: no abdominal wall ecchymosis, no edema, distended, no incisions and no visible herniation Palpation: soft, no hepatosplenomegaly, not firm, no guarding, no hernias, not rigid and tender (minimal tenderness diffusely. No guarding, no peritoneal findings) Percussion: dullness to percussion Auscultation: normal bowel sounds Back/Spine/Pelvis Back: no CVA tenderness Skin General skin exam: no rashes or lesions noted Neuro General: alert and awake Cognition: normal cognition Speech: speech normal Gait: normal gait Extrem General: no pedal edema, no calf tenderness and normal gait Psych Appearance: grossly normal and well kempt Mental Status: mental status grossly normal Speech and Movement: speech and movement normal Course Vital Signs Temperature 37.0 C 07/23/18 10:50 Pulse 102 H 07/23/18 10:50 Respiratory Rate 14 07/23/18 10:50 Blood Pressure 157/110 H 07/23/18 10:50 Pulse Oximetry 97 07/23/18 10:50 Temperature 37.0 C 07/23/18 10:50 Temperature Source Temporal Artery Scan 07/23/18 10:50 Pulse 102 H 07/23/18 10:50 Respiratory Rate 14 07/23/18 10:50 Respiratory Effort Non-Labored 07/23/18 10:53 Blood Pressure 157/110 H 07/23/18 10:50 Pulse Oximetry 97 07/23/18 10:50 Oxygen Delivery Method Room Air 07/23/18 10:50 Oxygen Flow Rate 0 07/23/18 10:50 Pain Level 5 07/23/18 10:50
--- NOTE | 2018-07-23 11:41 | ED.GENADUL_ITS ---
Discharge Plan Disposition Patient Disposition: HOME Condition: Fair Discharge Details Chief Complaint: Recheck Clinical Impression: SBO (small bowel obstruction) Primary Care Provider: Roxana Cardenas ED Provider: Rossy Conway Home Meds and New Rx's Prescriptions: New prednisone 10 mg tablet 40 mg PO DAILY Qty: 20 RF: 0 Continue omega-3 fatty acids-fish oil [Fish Oil] 1 EACH capsule 1 ea PO DAILY RF: 0 albuterol sulfate [ProAir HFA] 200 PUFF HFA aerosol inhaler 1 - 2 puff Inhalation Q4-6H PRN Qty: 3 RF: 3 nicotine [Nicoderm CQ] 14 mg/24 hr patch 24 hour 1 patch TD DAILY Qty: 14 RF: 0 nicotine [Nicoderm CQ] 21 mg/24 hr patch 24 hour 1 patch TD DAILY Qty: 14 RF: 0 nicotine [Nicoderm CQ] 7 mg/24 hr patch 24 hour 1 patch TD Q24H Qty: 14 RF: 3 Discontinued prednisone 10 mg tablet 20 mg PO DAILY RF: 0 Discharge Instructions Instructions: Bowel Obstruction (ED) Additional Instructions: Encourage hydration. Please increase prednisone dosing as advised by Dr. Denis to 40mg daily. He will see you this week in clinic for follow up. Please call his office to schedule appointment. If you develop abdominal pain, fevers/ chills, nausea/vomiting, stop passing flatus or develop other new/worsening symptoms please seek care urgently once again. Please bring CD of x-ray to your upcoming appointment. Referrals: MAIKEL DENIS [ [facility] STAFF PHYSICIAN] - ([phone]) Discharge Data Discharge Date/Time-TO BE ENTERED AT DEPARTURE: 07/23/18 12:15 Medical Decision Making Patient is a 47 year old female with history of saloni's, presenting today with chief complaint of abdominal discomfort. Reports that she has outpatient upright abdominal XR yesterday. Was seen by her ornament setter yesterday who was concerned she may have developed a recurrent blockage. Ordered outpatient imaging, patient has not yet received results. I contacted the radiologist who reviewed the imaging. She noted the small bowel to be fairly dilated, suspicious for obstruction. Does not note any free air. On exam, the patient appears nontoxic. She is resting comfortably. Her abdomen does appear slightly distended, she reports it is down from yesterday. Reports is been passing flatus, had a bowel movement this morning. No change in her appetite. Reports that overall she is feeling improved from yesterday. Reports that the distention has waxed and waned over the past 24 hours. Patient does take daily prednisone, is currently taking 20 mg daily. This patient looks quite good, has been passing flatus, having bowel movements with normal appetite, I will consult with Dr. Denis. For the patient's report, it sounds that he had planned on managing her as an outpatient. She was admitted recently for obstruction. At that point, the patient reports that her pain was much increased compared to how it is today, at that time she is experiencing nausea and vomiting Spoke with Dr. Denis regarding imaging, patient's presentation and her concerns. He requested that he receive a disc, he also reports that he see the patient this week. We will send copy of images with the patient. He also has the patient have her prednisone increased to 40 mg daily from her typical 20. He does not feel that admission at this point is necessary. He did advise that given the patient's history, she is on her way to surgery. Discussed this plan with the patient. Again, she reports she is feeling improved from yesterday. Agrees to increase in prednisone. She does have 10 mg tablets that was previously prescribed by Dr. Denis is concerned that this may begin to run low. I will refill this prescription for she will continue with the 40 mg of prednisone until evaluated by Dr. valdez at the end of the week. Encourage hydration. She was given strict return precautions. Patient has had issues with obstructions historically that have required hospitalization as well aware of worsening symptoms once he care urgently once again. All of her questions and concerns were addressed and she is in agreement with this plan. [facility] General Mode of arrival: ambulatory . Date/Time Provider Initiated Documentation: 07/23/18 11:10 . Limitations to Documentation: no limitations . Information obtained by: patient . History of Present Illness 47 year old F presents to the emergency department with the chief complaint of diffuse abdominal discomfort, described as moderate, with intensity rated at 5. Quality is described as aching, and is localized to the abdomen. Patient reports no radiation. Patient started experiencing this day(s) and it has been intermittent. No relieving factors improve symptom(s), Eating worsens symptoms (dietary dependant ) . Patient notes no other symptoms.; denies chest pain, cough, fever/chills, headaches, loss of appetite, nausea/ vomiting, rash and shortness of breath. Patient did receive the following treatments prior to arrival, other (patient is on daily prednisone ) Related Data Home Medications Medication Instructions Recorded Confirmed omega-3 fatty acids-fish oil [Fish 1 ea PO DAILY 09/07/17 07/23/18 Oil] albuterol sulfate [ProAir HFA] 1 - 2 puff INHALATION Q4-6H PRN #3 11/29/1707/23 inhaler nicotine 14 mg/24 hr daily 1 patch TD DAILY #14 each 06/17/18 07/23/18 transdermal patch nicotine 21 mg/24 hr daily 1 patch TD DAILY #14 each 06/17/18 07/23/18 transdermal patch nicotine 7 mg/24 hr daily 1 patch TD Q24H #14 each 06/17/18 07/23/18 transdermal patch prednisone 40 mg PO DAILY #20 tab 07/23/18 Previous Rx's Medication Instructions Recorded albuterol sulfate [ProAir HFA] 1 - 2 puff INHALATION Q4-6H PRN #3 11/29/17 inhaler nicotine 14 mg/24 hr daily 1 patch TD DAILY #14 each 06/17/18 transdermal patch nicotine 21 mg/24 hr daily 1 patch TD DAILY #14 each 06/17/18 transdermal patch nicotine 7 mg/24 hr daily 1 patch TD Q24H #14 each 06/17/18 transdermal patch prednisone 40 mg PO DAILY #20 tab 07/23/18 Allergies Allergy/AdvReac Type Severity Reaction Status Date / Time No Known Allergies Allergy Unverified 07/23/18 10:54 General Stated Complaint: Recheck JUMA: 3 Review of Systems Constitutional Reports as per HPI Cardiovascular Reports as per HPI Respiratory Reports as per HPI Gastrointestinal Reports as per HPI, Reports abdominal pain, Reports belching, Reports bloating, Denies change in bowel habits, Denies tenesmus, Denies change in stool character , Denies constipation, Denies cramping, Reports excessive flatus, Denies nausea and Denies vomiting Genitourinary Reports system reviewed and no additional complaints, except as docu (denies any change in urinary habits) Musculoskeletal Denies back pain Integumentary/Breasts Denies rash Exam Const General: cooperative, healthy appearing, comfortable, no acute distress, well developed and well groomed Nutritional Appearance: average body habitus and well nourished Orientation: alert and awake Eyes General: appearance normal, both eyes and all related structures Resp Effort & Inspection: normal respiratory effort, able to speak in complete sentences and no respiratory distress Auscultation: clear to auscultation bilaterally, no rales, no rhonchi and no wheezes Cardio Rate: regular rate Rhythm: regular rhythm Heart Sounds: S1 normal and S2 normal GI Inspection: no abdominal wall ecchymosis, no edema, distended, no incisions and no visible herniation Palpation: soft, no hepatosplenomegaly, not firm, no guarding, no hernias, not rigid and tender (minimal tenderness diffusely. No guarding, no peritoneal findings) Percussion: dullness to percussion Auscultation: normal bowel sounds Back/Spine/Pelvis Back: no CVA tenderness Skin General skin exam: no rashes or lesions noted Neuro General: alert and awake Cognition: normal cognition Speech: speech normal Gait: normal gait Extrem General: no pedal edema, no calf tenderness and normal gait Psych Appearance: grossly normal and well kempt Mental Status: mental status grossly normal Speech and Movement: speech and movement normal Course Vital Signs Temperature 37.0 C 07/23/18 10:50 Pulse 102 H 07/23/18 10:50 Respiratory Rate 14 07/23/18 10:50 Blood Pressure 157/110 H 07/23/18 10:50 Pulse Oximetry 97 07/23/18 10:50 Temperature 37.0 C 07/23/18 10:50 Temperature Source Temporal Artery Scan 07/23/18 10:50 Pulse 102 H 07/23/18 10:50 Respiratory Rate 14 07/23/18 10:50 Respiratory Effort Non-Labored 07/23/18 10:53 Blood Pressure 157/110 H 07/23/18 10:50 Pulse Oximetry 97 07/23/18 10:50 Oxygen Delivery Method Room Air 07/23/18 10:50 Oxygen Flow Rate 0 07/23/18 10:50 Pain Level 5 07/23/18 10:50
== END 2018-07-23 12:15 | disposition home or self-care (01) ==
PROVIDERS: Emergency Provider Physician Assistant; PCP Student in an Organized Health Care Education/Training Program
DX: K56.609 Unspecified intestinal obstruction, unspecified as to partial versus complete obstruction (principal); K50.90 Crohn's disease, unspecified, without complications
CPT/HCPCS: 99283

== ENCOUNTER 2018-08-01 00:36 | Outpatient (CLI) | payer BC, SELFPAY ==
--- NOTE | 2018-08-01 11:01 | DI.RAD_ITS ---
SYMPTOM/DIAGNOSIS: CROHN'S DISEASE, K50.912 KUB AND UPRIGHT ABDOMEN: The images are compared with the previous study of 07/22/18. Dilated gas and fluid containing large bowel loops are seen. Also again noted are gas filled dilated small bowel loops. There is diminished dilatation of the small bowel loops when compared with the prior examination and as noted above, gas and fluid are identified in the colon. The findings would be consistent with an ileus. If there is any further specific clinical question regarding the status of this patient, then further assessment with CT could be considered.
== END 2018-08-01 00:56 ==
PROVIDERS: PCP Student in an Organized Health Care Education/Training Program; Visit Provider Internal Medicine Gastroenterology
DX: K50.912 Crohn's disease, unspecified, with intestinal obstruction (principal); K56.7 Ileus, unspecified
CPT/HCPCS: 74019

== ENCOUNTER 2018-08-09 12:01 | Outpatient (CLI) | payer BC, SELFPAY ==
--- NOTE | 2018-08-09 08:44 | DI.RAD_ITS ---
SYMPTOMS/DIAGNOSIS: CROHN'S DISEASE, K50.912 FLAT AND UPRIGHT ABDOMEN: Comparison is 08/01/18. Since the prior examination, there has been interval decrease in size of the small bowel loops. The largest diameter is 4.7 cm. There are persistent air-fluid levels seen on the upright view. No free air or organomegaly is seen. The lung bases are clear. The bones and joints appear intact. IMPRESSION: Interval decrease in size of the diameter of the small bowel loops since 08/01/18.
== END 2018-08-09 12:21 ==
PROVIDERS: PCP Student in an Organized Health Care Education/Training Program; Visit Provider Internal Medicine Gastroenterology
DX: K50.912 Crohn's disease, unspecified, with intestinal obstruction (principal)
CPT/HCPCS: 74019

== ENCOUNTER 2018-09-11 17:51 | Emergency (ER) | payer BC, SELFPAY ==
[2018-09-11 18:00] VITALS: BP 137/76; PULSE 86; RESP 18; TEMP 36.6; O2SAT 98
[2018-09-11] MEDS: Normal Saline 1,000 ML 1000 ML IV ×2 (18:30→19:39)
[2018-09-11 20:15] VITALS: BP 120/72; PULSE 76; RESP 16; TEMP 36.8
--- NOTE | 2018-09-11 20:34 | W.ED.GENAD ---
Discharge Plan Disposition Patient Disposition: HOME Condition: Stable Discharge Details Chief Complaint: GenMedical Clinical Impression: Peripherally inserted central catheter (PICC) in place Reason For Visit: im to anxious to do this at home Primary Care Provider: Roxana Cardenas ED Provider: Brian Leiva Home Meds and New Rx's Prescriptions: No Action omega-3 fatty acids-fish oil [Fish Oil] 1 EACH capsule 1 ea PO DAILY RF: 0 albuterol sulfate [ProAir HFA] 200 PUFF HFA aerosol inhaler 1 - 2 puff Inhalation Q4-6H PRN Qty: 3 RF: 3 nicotine [Nicoderm CQ] 14 mg/24 hr patch 24 hour 1 patch TD DAILY Qty: 14 RF: 0 nicotine [Nicoderm CQ] 21 mg/24 hr patch 24 hour 1 patch TD DAILY Qty: 14 RF: 0 nicotine [Nicoderm CQ] 7 mg/24 hr patch 24 hour 1 patch TD Q24H Qty: 14 RF: 3 infliximab [Remicade] 100 mg recon soln IV RF: 0 6-MP PO DAILY RF: 0 prednisone 20 mg tablet 40 mg PO DAILY RF: 0 Discharge Instructions Instructions: Peripherally Inserted Central Catheters and Midline Catheters (ED) Additional Instructions: Continue to follow through with your normally prescribed medication and infusions and contact her primary care provider for any further issues. Feel free to return for any signs of infection or new or worsening symptoms. Referrals: Roxana Cardenas DO [Primary Care Provider] - Medical Decision Making Patient presenting to the emergency department for chief complaint of anxiety about home infusion of normal saline. Patient states home health nurse came but only made her more anxious about performing the procedure by herself so she came into the emergency department. Patient states that she was recently discharged from [facility] with a PICC line and an ostomy bag due to Crohn's with instructions to have 2 L normal saline daily for hydration. Patient denies any medical complaints just severe anxiety about performing saline infusion. Physical exam is unremarkable and PICC line site appears appropriate with no signs of infection. Patient given 2 L normal saline and reeducated on use of PICC line, cleanliness, and outpatient follow-up and need to return for any signs of infection which were thoroughly discussed. Patient states that her primary care provider was going to contact infusion center for arrangement of outpatient therapy due to her anxiety. Patient encouraged to return for any new or worsening symptoms otherwise to follow through with previously scheduled plan of care by primary care provider. HPI General Mode of arrival: ambulatory. Date/Time Provider Initiated Documentation: 09/11/18 18:23. Limitations to Documentation: no limitations. Information obtained by: RN notes reviewed. History of Present Illness 47 year old F presents to the emergency department with the chief complaint of Anxiety about home infusion, Patient notes no other symptoms.. Patient did receive the following treatments prior to arrival, none Related Data Home Medications Medication Instructions Recorded Confirmed omega-3 fatty acids-fish oil [Fish 1 ea PO DAILY 09/07/17 07/23/18 Oil] albuterol sulfate [ProAir HFA] 1 - 2 puff INHALATION Q4-6H PRN #3 11/29/17 07/23/18 inhaler nicotine 14 mg/24 hr daily 1 patch TD DAILY #14 each 06/17/18 07/23/18 transdermal patch nicotine 21 mg/24 hr daily 1 patch TD DAILY #14 each 06/17/18 07/23/18 transdermal patch nicotine 7 mg/24 hr daily 1 patch TD Q24H #14 each 06/17/18 07/23/18 transdermal patch 6-MP PO DAILY 07/31/18 infliximab 100 mg intravenous IV each 07/31/18 solution prednisone 20 mg tablet 40 mg PO DAILY tab 08/05/18 Previous Rx's Medication Instructions Recorded albuterol sulfate [ProAir HFA] 1 - 2 puff INHALATION Q4-6H PRN #3 11/29/17 inhaler nicotine 14 mg/24 hr daily 1 patch TD DAILY #14 each 06/17/18 transdermal patch nicotine 21 mg/24 hr daily 1 patch TD DAILY #14 each 06/17/18 transdermal patch nicotine 7 mg/24 hr daily 1 patch TD Q24H #14 each 06/17/18 transdermal patch Allergies Allergy/AdvReac Type Severity Reaction Status Date / Time No Known Allergies Allergy Unverified 09/11/18 18:07 General Stated Complaint: GenMedical JUMA: 3 Review of Systems Constitutional Denies body ache(s), Denies chills and Denies fever(s) Cardiovascular Denies chest pain and Denies dyspnea Respiratory Denies dyspnea Gastrointestinal Denies abdominal pain, Denies nausea and Denies vomiting Integumentary/Breasts Denies rash Neurologic Denies confusion and Denies sensory deficit Psychiatric Denies confusion PFSH Asthma (Chronic 11/16/16) Tobacco use disorder (Chronic 11/16/16) Ovarian cyst, left (Chronic 11/19/17) Crohn's disease (Chronic 12/20/16) Small bowel obstruction (Resolved) Asthma Crohn's disease Tobacco use disorder Family History Mother Neoplasm Father Substance abuse Neoplasm Sister No problems noted. Sister No problems noted. Brother No problems noted. Brother No problems noted. Colonoscopy w/ BX (11/27/16) Family History Mother Neoplasm Father Substance abuse Neoplasm Sister No problems noted. Sister No problems noted. Brother No problems noted. Brother No problems noted. Medical History Asthma (Chronic 11/16/16) Tobacco use disorder (Chronic 11/16/16) Ovarian cyst, left (Chronic 11/19/17) Crohn's disease (Chronic 12/20/16) Small bowel obstruction (Resolved) Asthma Crohn's disease Tobacco use disorder Social History adopted: No caregiver/support person: No foster care: No household members: spouse and children number of children: 1 current occupational status: employed current occupation: Cleaning houses pets and animals: Yes pets and animals: dog(s) Smoking/Tobacco Use Status: Current every day tobacco type: cigarettes alcohol intake: current alcohol intake frequency: a few times a month Alcohol type: beer and wine substance use type: does not use Surgical History Colonoscopy w/ BX (11/27/16) Social History adopted: No caregiver/support person: No foster care: No household members: spouse and children number of children: 1 current occupational status: employed current occupation: Cleaning houses pets and animals: Yes pets and animals: dog(s) Smoking/Tobacco Use Status: Current every day tobacco type: cigarettes alcohol intake: current alcohol intake frequency: a few times a month Alcohol type: beer and wine substance use type: does not use Exam Const General: cooperative, no acute distress and not ill appearing Orientation: alert, awake and oriented x3 HENMT Mouth: moist mucous membranes Resp Effort & Inspection: normal respiratory effort, able to speak in complete sentences and no respiratory distress Cardio Rate: regular rate Rhythm: regular rhythm Skin General skin exam: no rashes or lesions noted Neuro General: alert, awake, oriented x3, moves all extremities and no focal motor deficits Sensory Exam: no sensory deficits noted Extrem General: normal to inspection (PICC is placed in right upper arm with normal appearance, no signs of infection, no erythema, no drainage), full ROM and normal capillary refill Course Vital Signs Temperature 36.6 C 09/11/18 18:00 Pulse 86 09/11/18 18:00 Respiratory Rate 18 09/11/18 18:00 Blood Pressure 137/76 09/11/18 18:00 Pulse Oximetry 98 09/11/18 18:00 Temperature 36.8 C 09/11/18 20:15 Temperature Source Skin 09/11/18 20:15 Pulse 76 09/11/18 20:15 Respiratory Rate 16 09/11/18 20:15 Respiratory Effort 09/11/18 20:15 Respiratory Depth Normal 09/11/18 20:15 Blood Pressure 120/72 09/11/18 20:15 Pulse Oximetry 98 09/11/18 18:00 Oxygen Delivery Method Room Air 09/11/18 20:15 Oxygen Flow Rate 0 09/11/18 20:15
--- NOTE | 2018-09-11 20:42 | ED.GENADUL_ITS ---
Discharge Plan Disposition Patient Disposition: HOME Condition: Stable Discharge Details Chief Complaint: GenMedical Clinical Impression: Peripherally inserted central catheter (PICC) in place Reason For Visit: im to anxious to do this at home Primary Care Provider: Roxana Cardenas ED Provider: Brian Leiva Home Meds and New Rx's Prescriptions: No Action omega-3 fatty acids-fish oil [Fish Oil] 1 EACH capsule 1 ea PO DAILY RF: 0 albuterol sulfate [ProAir HFA] 200 PUFF HFA aerosol inhaler 1 - 2 puff Inhalation Q4-6H PRN Qty: 3 RF: 3 nicotine [Nicoderm CQ] 14 mg/24 hr patch 24 hour 1 patch TD DAILY Qty: 14 RF: 0 nicotine [Nicoderm CQ] 21 mg/24 hr patch 24 hour 1 patch TD DAILY Qty: 14 RF: 0 nicotine [Nicoderm CQ] 7 mg/24 hr patch 24 hour 1 patch TD Q24H Qty: 14 RF: 3 infliximab [Remicade] 100 mg recon soln IV RF: 0 6-MP PO DAILY RF: 0 prednisone 20 mg tablet 40 mg PO DAILY RF: 0 Discharge Instructions Instructions: Peripherally Inserted Central Catheters and Midline Catheters (ED ) Additional Instructions: Continue to follow through with your normally prescribed medication and infusions and contact her primary care provider for any further issues. Feel free to return for any signs of infection or new or worsening symptoms. Referrals: Roxana Cardenas DO [Primary Care Provider] - Medical Decision Making Patient presenting to the emergency department for chief complaint of anxiety about home infusion of normal saline. Patient states home health nurse came but only made her more anxious about performing the procedure by herself so she came into the emergency department. Patient states that she was recently discharged from [facility] with a PICC line and an ostomy bag due to Crohn's with instructions to have 2 L normal saline daily for hydration. Patient denies any medical complaints just severe anxiety about performing saline infusion. Physical exam is unremarkable and PICC line site appears appropriate with no signs of infection. Patient given 2 L normal saline and reeducated on use of PICC line, cleanliness, and outpatient follow-up and need to return for any signs of infection which were thoroughly discussed. Patient states that her primary care provider was going to contact infusion center for arrangement of outpatient therapy due to her anxiety. Patient encouraged to return for any new or worsening symptoms otherwise to follow through with previously scheduled plan of care by primary care provider. HPI General Mode of arrival: ambulatory . Date/Time Provider Initiated Documentation: 09/11/18 18:23 . Limitations to Documentation: no limitations . Information obtained by: RN notes reviewed . History of Present Illness 47 year old F presents to the emergency department with the chief complaint of Anxiety about home infusion, Patient notes no other symptoms.. Patient did receive the following treatments prior to arrival, none Related Data Home Medications Medication Instructions Recorded Confirmed omega-3 fatty acids-fish oil [Fish 1 ea PO DAILY 09/07/17 07/23/18 Oil] albuterol sulfate [ProAir HFA] 1 - 2 puff INHALATION Q4-6H PRN #3 11/29/1707/23 inhaler nicotine 14 mg/24 hr daily 1 patch TD DAILY #14 each 06/17/18 07/23/18 transdermal patch nicotine 21 mg/24 hr daily 1 patch TD DAILY #14 each 06/17/18 07/23/18 transdermal patch nicotine 7 mg/24 hr daily 1 patch TD Q24H #14 each 06/17/18 07/23/18 transdermal patch 6-MP PO DAILY 07/31/18 infliximab 100 mg intravenous IV each 07/31/18 solution prednisone 20 mg tablet 40 mg PO DAILY tab 08/05/18 Previous Rx's Medication Instructions Recorded albuterol sulfate [ProAir HFA] 1 - 2 puff INHALATION Q4-6H PRN #3 11/29/17 inhaler nicotine 14 mg/24 hr daily 1 patch TD DAILY #14 each 06/17/18 transdermal patch nicotine 21 mg/24 hr daily 1 patch TD DAILY #14 each 06/17/18 transdermal patch nicotine 7 mg/24 hr daily 1 patch TD Q24H #14 each 06/17/18 transdermal patch Allergies Allergy/AdvReac Type Severity Reaction Status Date / Time No Known Allergies Allergy Unverified 09/11/18 18:07 General Stated Complaint: GenMedical JUMA: 3 Review of Systems Constitutional Denies body ache(s), Denies chills and Denies fever(s) Cardiovascular Denies chest pain and Denies dyspnea Respiratory Denies dyspnea Gastrointestinal Denies abdominal pain, Denies nausea and Denies vomiting Integumentary/Breasts Denies rash Neurologic Denies confusion and Denies sensory deficit Psychiatric Denies confusion PFSH Asthma (Chronic 11/16/16) Tobacco use disorder (Chronic 11/16/16) Ovarian cyst, left (Chronic 11/19/17) Crohn's disease (Chronic 12/20/16) Small bowel obstruction (Resolved) Asthma Crohn's disease Tobacco use disorder Family History Mother Neoplasm Father Substance abuse Neoplasm Sister No problems noted. Sister No problems noted. Brother No problems noted. Brother No problems noted. Colonoscopy w/ BX (11/27/16) Family History Mother Neoplasm Father Substance abuse Neoplasm Sister No problems noted. Sister No problems noted. Brother No problems noted. Brother No problems noted. Medical History Asthma (Chronic 11/16/16) Tobacco use disorder (Chronic 11/16/16) Ovarian cyst, left (Chronic 11/19/17) Crohn's disease (Chronic 12/20/16) Small bowel obstruction (Resolved) Asthma Crohn's disease Tobacco use disorder Social History adopted: No caregiver/support person: No foster care: No household members: spouse and children number of children: 1 current occupational status: employed current occupation: Cleaning houses pets and animals: Yes pets and animals: dog(s) Smoking/Tobacco Use Status: Current every day tobacco type: cigarettes alcohol intake: current alcohol intake frequency: a few times a month Alcohol type: beer and wine substance use type: does not use Surgical History Colonoscopy w/ BX (11/27/16) Social History adopted: No caregiver/support person: No foster care: No household members: spouse and children number of children: 1 current occupational status: employed current occupation: Cleaning houses pets and animals: Yes pets and animals: dog(s) Smoking/Tobacco Use Status: Current every day tobacco type: cigarettes alcohol intake: current alcohol intake frequency: a few times a month Alcohol type: beer and wine substance use type: does not use Exam Const General: cooperative, no acute distress and not ill appearing Orientation: alert, awake and oriented x3 HENMT Mouth: moist mucous membranes Resp Effort & Inspection: normal respiratory effort, able to speak in complete sentences and no respiratory distress Cardio Rate: regular rate Rhythm: regular rhythm Skin General skin exam: no rashes or lesions noted Neuro General: alert, awake, oriented x3, moves all extremities and no focal motor deficits Sensory Exam: no sensory deficits noted Extrem General: normal to inspection (PICC is placed in right upper arm with normal appearance, no signs of infection, no erythema, no drainage), full ROM and normal capillary refill Course Vital Signs Temperature 36.6 C 09/11/18 18:00 Pulse 86 09/11/18 18:00 Respiratory Rate 18 09/11/18 18:00 Blood Pressure 137/76 09/11/18 18:00 Pulse Oximetry 98 09/11/18 18:00 Temperature 36.8 C 09/11/18 20:15 Temperature Source Skin 09/11/18 20:15 Pulse 76 09/11/18 20:15 Respiratory Rate 16 09/11/18 20:15 Respiratory Effort 09/11/18 20:15 Respiratory Depth Normal 09/11/18 20:15 Blood Pressure 120/72 09/11/18 20:15 Pulse Oximetry 98 09/11/18 18:00 Oxygen Delivery Method Room Air 09/11/18 20:15 Oxygen Flow Rate 0 09/11/18 20:15
--- NOTE | 2018-09-11 21:11 | NUR.NOTE ---
RN spent over an HR providing patient education on Lovenox injections as well as PICC line care Nursing Note:
[2018-09-11 21:12] VITALS: BP 123/77; PULSE 77; RESP 15; TEMP 36.4; O2SAT 98
== END 2018-09-11 21:12 | disposition home or self-care (01) ==
PROVIDERS: Emergency Provider Nurse Practitioner Family; PCP Student in an Organized Health Care Education/Training Program
DX: K50.90 Crohn's disease, unspecified, without complications (principal); Z98.890 Other specified postprocedural states; Z93.3 Colostomy status; Z95.828 Presence of other vascular implants and grafts
CPT/HCPCS: 96360; 96361; 99284; 99283

== ENCOUNTER 2018-09-16 19:11 | Emergency (ER) | payer BC, SELFPAY ==
[2018-09-16 19:17] VITALS: BP 117/71; PULSE 78; RESP 18; TEMP 36.4; O2SAT 97
--- NOTE | 2018-09-16 19:27 | ED.GENADUL_ITS ---
Discharge Plan Disposition Patient Disposition: HOME Condition: Stable Discharge Details Chief Complaint: GenMedical Clinical Impression: Colostomy care Primary Care Provider: Roxana Cardenas ED Provider: Sharon Pedroza Home Meds and New Rx's Prescriptions: Continued omega-3 fatty acids-fish oil [Fish Oil] 1 EACH capsule 1 ea PO DAILY RF: 0 ProAir HFA 200 PUFF HFA aerosol inhaler 1 - 2 puff Inhalation Q4-6H PRN Qty: 3 RF: 3 nicotine [Nicoderm CQ] 14 mg/24 hr patch 24 hour 1 patch TD DAILY Qty: 14 RF: 0 nicotine [Nicoderm CQ] 21 mg/24 hr patch 24 hour 1 patch TD DAILY Qty: 14 RF: 0 nicotine [Nicoderm CQ] 7 mg/24 hr patch 24 hour 1 patch TD Q24H Qty: 14 RF: 3 Remicade 100 mg recon soln IV RF: 0 6-MP PO DAILY RF: 0 prednisone 20 mg tablet 35 mg PO DAILY RF: 0 Discharge Instructions Instructions: Colostomy Care (ED) Additional Instructions: Use the colostomy materials as directed. Follow-up with your scheduled appointment with [facility] on Sunday. Return immediately to the emergency department any worsening or new concerning symptoms. Discharge Data Discharge Physician: Sharon Pedroza Medical Decision Making 47-year-old female who is 12 days status post bowel resection with colostomy who presents for colostomy care. States she is unable to get the colostomy bag to stick to her skin. Normal vital signs. Abdomen soft and nontender. Colostomy bag noted with brown stool and no bleeding. Colostomy bag seal not holding to skin. Patient states she is only here requesting some help with keeping her colostomy bag seal to her skin. Discussed with nursing checking department supervisor and she will bring down colostomy paste, powder and other additional supplies. Patient states she has a follow-up appointment with her colostomy nurse at [facility] this Sunday. Patient has no other acute complaints and feels good to go home. HPI General Mode of arrival: ambulatory . Date/Time Provider Initiated Documentation: 09/16/18 19:24 . Limitations to Documentation: no limitations . Information obtained by: patient . HPI Narrative: Pt is a 47yo F w/ a h/o SBO s/p colostomy placement at [facility] on 12/5 who presents for request for supplies due to loose colostomy bag that will not stick to skin. Pt states she changes the bag every 4 days. Pt states she changed the bag tonight and it will not stick to her skin. Pt denies fever, nausea, vomiting, diarrhea, abdominal pain. Related Data Home Medications Medication Instructions Recorded Confirmed omega-3 fatty acids-fish oil [Fish 1 ea PO DAILY 09/07/17 09/16/18 Oil] ProAir HFA 1 - 2 puff INHALATION Q4-6H PRN #3 11/29/17 09/16/18 inhaler nicotine 14 mg/24 hr daily 1 patch TD DAILY #14 each 06/17/18 09/16/18 transdermal patch nicotine 21 mg/24 hr daily 1 patch TD DAILY #14 each 06/17/18 09/16/18 transdermal patch nicotine 7 mg/24 hr daily 1 patch TD Q24H #14 each 06/17/18 09/16/18 transdermal patch 6-MP PO DAILY 07/31/18 infliximab 100 mg intravenous IV each 07/31/18 solution prednisone 20 mg tablet 35 mg PO DAILY tab 08/05/18 09/16/18 Previous Rx's Medication Instructions Recorded ProAir HFA 1 - 2 puff INHALATION Q4-6H PRN #3 11/29/17 inhaler nicotine 14 mg/24 hr daily 1 patch TD DAILY #14 each 06/17/18 transdermal patch nicotine 21 mg/24 hr daily 1 patch TD DAILY #14 each 06/17/18 transdermal patch nicotine 7 mg/24 hr daily 1 patch TD Q24H #14 each 06/17/18 transdermal patch Allergies Allergy/AdvReac Type Severity Reaction Status Date / Time No Known Allergies Allergy Unverified 09/16/18 19:24 General Stated Complaint: GenMedical JUMA: 5 Review of Systems Review of Systems All systems reviewed & are unremarkable except as noted in HPI and below Constitutional Reports as per HPI, Denies chills and Denies fever(s) Eyes Denies blurry vision ENT Denies dizziness, Denies sore throat and Denies throat swelling Cardiovascular Denies chest pain and Denies dyspnea Respiratory Denies dyspnea Gastrointestinal Denies abdominal pain, Denies diarrhea and Denies vomiting Genitourinary Denies hematuria and Denies dysuria Musculoskeletal Denies back pain and Denies numbness Integumentary/Breasts Denies lesions and Denies rash Neurologic Denies dizziness and Denies numbness Allergic/Immunologic Denies throat swelling [facility] Medical History Asthma (Chronic 11/16/16) Tobacco use disorder (Chronic 11/16/16) Ovarian cyst, left (Chronic 11/19/17) Crohn's disease (Chronic 12/20/16) Small bowel obstruction (Resolved) Asthma Crohn's disease Tobacco use disorder Surgical History Colonoscopy w/ BX (11/27/16) Family History Mother Neoplasm Father Substance abuse Neoplasm Sister No problems noted. Sister No problems noted. Brother No problems noted. Brother No problems noted. Social History adopted: No caregiver/support person: No foster care: No household members: spouse and children number of children: 1 current occupational status: employed current occupation: Cleaning houses pets and animals: Yes pets and animals: dog(s) Smoking/Tobacco Use Status: Current every day tobacco type: cigarettes alcohol intake: current alcohol intake frequency: a few times a month Alcohol type: beer and wine substance use type: does not use Exam Const General: cooperative, healthy appearing and no acute distress [facility] Head: normal to inspection Face and sinus: normal facial exam Eyes General: appearance normal, both eyes and all related structures Neck Neck: normal visual inspection and No submandibular swelling Lymphatic: no lymphadenopathy noted Chest Chest: normal inspection of the chest and no tenderness Resp Effort & Inspection: normal respiratory effort and able to speak in complete sentences Auscultation: clear to auscultation bilaterally Cardio Rate: regular rate Rhythm: regular rhythm GI Inspection: other (Colostomy bag right lower quadrant with brown stool in bag noted no blood n) Palpation: soft, not firm, not rigid and nontender Auscultation: normal bowel sounds Skin General skin exam: no rashes or lesions noted Neuro General: alert, awake and oriented x3 Cognition: normal cognition Speech: speech normal Motor: muscle tone normal throughout Sensory Exam: no sensory deficits noted Extrem General: normal to inspection, full ROM, normal capillary refill, no calf tenderness bilaterally and no edema Psych Appearance: grossly normal Mental Status: mental status grossly normal Speech and Movement: speech and movement normal Affect: normal affect Course Vital Signs Temperature 97.5 F L 09/16/18 19:17 Pulse 78 09/16/18 19:17 Respiratory Rate 18 09/16/18 19:17 Blood Pressure 117/71 09/16/18 19:17 Pulse Oximetry 97 09/16/18 19:17 Temperature 97.5 F L 09/16/18 19:17 Temperature Source Skin 09/16/18 19:17 Pulse 78 09/16/18 19:17 Respiratory Rate 18 09/16/18 19:17 Respiratory Effort Non-Labored 09/16/18 19:22 Blood Pressure 117/71 09/16/18 19:17 Blood Pressure Position Sitting 09/16/18 19:17 Pulse Oximetry 97 09/16/18 19:17 Oxygen Delivery Method Room Air 09/16/18 19:17 Oxygen Flow Rate 0 09/16/18 19:17 Pain Level 0 09/16/18 19:17
== END 2018-09-16 20:13 | disposition home or self-care (01) ==
LOC: ER 20:11
PROVIDERS: Emergency Provider Physician Assistant; PCP Student in an Organized Health Care Education/Training Program
DX: K94.09 Other complications of colostomy (principal); Y83.3 Surgical operation with formation of external stoma as the cause of abnormal reaction of the patient, or of later complication, without mention of misadventure at the time of the procedure; Z43.3 Encounter for attention to colostomy

== ENCOUNTER 2018-09-30 01:20 | Outpatient (RCR) | payer BC, SELFPAY ==
[2018-09-12] MEDS: Normal Saline 1,000 ML 800 ML IV (11:20)
[2018-09-12] MEDS: Normal Saline Flush 10 ML SYR IVP ×2 (11:22→13:26)
[2018-09-12 13:38] LABS: ALT 104 U/L (12-78); AST 33 U/L (15-37); Albumin 2.5 g/dL (3.4-5.0); Alkaline Phosphatase 130 U/L (46-116); Anion Gap 10.3 mmol/L (3-11); BUN 16 mg/dL (7-18); Bilirubin, Total 0.2 mg/dL (0.2-1.0); CO2 27.7 mmol/L (21.0-32.0); Calcium 8.2 mg/dL (8.5-10.1); Chloride 102 mmol/L (98-107); Glucose 126 mg/dL (70-100); Sodium 140 mmol/L (136-145); Total Protein 5.8 g/dL (6.4-8.2)
[2018-09-13] MEDS: Normal Saline Flush 10 ML SYR IVP (11:06)
[2018-09-14] MEDS: Normal Saline Flush 10 ML SYR IVP (11:00)
[2018-09-14] MEDS: Normal Saline 1,000 ML 800 ML IV (11:00)
[2018-09-15] MEDS: Normal Saline Flush 10 ML SYR IVP (09:38)
[2018-09-15] MEDS: Normal Saline 1,000 ML 800 ML IV (09:38)
[2018-09-16] MEDS: Normal Saline 1,000 ML 800 ML IV (10:42)
[2018-09-16] MEDS: Normal Saline Flush 10 ML SYR IVP (10:42)
[2018-09-16 11:11] LABS: ALT 79 U/L (12-78); AST 27 U/L (15-37); Albumin 2.7 g/dL (3.4-5.0); Alkaline Phosphatase 103 U/L (46-116); Anion Gap 8.1 mmol/L (3-11); BUN 11 mg/dL (7-18); Bilirubin, Total 0.2 mg/dL (0.2-1.0); CO2 29.9 mmol/L (21.0-32.0); CREATININE 0.72 mg/dL (0.55-1.02); Calcium 8.5 mg/dL (8.5-10.1); Chloride 103 mmol/L (98-107); Glucose 101 mg/dL (70-100); Potassium 3.7 mmol/L (3.5-5.1); Sodium 141 mmol/L (136-145); Total Protein 6.2 g/dL (6.4-8.2)
[2018-09-17] MEDS: Normal Saline 1,000 ML 800 ML IV (09:45)
[2018-09-17] MEDS: Normal Saline Flush 10 ML SYR IVP (09:56)
[2018-09-18] MEDS: Normal Saline 1,000 ML 800 ML IV (09:32)
[2018-09-18] MEDS: Normal Saline Flush 10 ML SYR IVP (09:33)
[2018-09-19] MEDS: Normal Saline 1,000 ML 800 ML IV (09:30)
[2018-09-19] MEDS: Normal Saline Flush 10 ML SYR IVP (09:36)
[2018-09-19 10:13] LABS: ALT 88 U/L (12-78); AST 24 U/L (15-37); Albumin 2.9 g/dL (3.4-5.0); Alkaline Phosphatase 103 U/L (46-116); Anion Gap 11.2 mmol/L (3-11); BUN 11 mg/dL (7-18); Bilirubin, Total 0.2 mg/dL (0.2-1.0); CO2 27.8 mmol/L (21.0-32.0); CREATININE 0.86 mg/dL (0.55-1.02); Calcium 8.5 mg/dL (8.5-10.1); Chloride 102 mmol/L (98-107); Glucose 105 mg/dL (70-100); Potassium 3.3 mmol/L (3.5-5.1); Sodium 141 mmol/L (136-145); Total Protein 6.3 g/dL (6.4-8.2)
[2018-09-21] MEDS: Normal Saline 1,000 ML 800 ML IV (09:51)
[2018-09-21] MEDS: Normal Saline Flush 10 ML SYR IVP (09:52)
[2018-09-22] MEDS: Normal Saline 1,000 ML 800 ML IV (08:56)
[2018-09-22] MEDS: Normal Saline Flush 10 ML SYR IVP (08:57)
[2018-09-23] MEDS: Normal Saline 1,000 ML 800 ML IV (08:05)
[2018-09-23] MEDS: Normal Saline Flush 10 ML SYR IVP (08:13)
[2018-09-23 08:42] LABS: ALT 102 U/L (12-78); AST 27 U/L (15-37); Albumin 3.1 g/dL (3.4-5.0); Alkaline Phosphatase 98 U/L (46-116); Anion Gap 8.4 mmol/L (3-11); BUN 10 mg/dL (7-18); Bilirubin, Total 0.3 mg/dL (0.2-1.0); CO2 31.6 mmol/L (21.0-32.0); CREATININE 0.79 mg/dL (0.55-1.02); Chloride 102 mmol/L (98-107); Glucose 80 mg/dL (70-100); Potassium 3.5 mmol/L (3.5-5.1); Sodium 142 mmol/L (136-145); Total Protein 6.5 g/dL (6.4-8.2)
[2018-09-24] MEDS: Normal Saline Flush 10 ML SYR IVP (11:47)
[2018-09-25] MEDS: Normal Saline 1,000 ML 800 ML IV (09:05)
[2018-09-25] MEDS: Normal Saline Flush 10 ML SYR IVP (09:11)
[2018-09-26] MEDS: Normal Saline 1,000 ML 800 ML IV (09:10)
[2018-09-26] MEDS: Normal Saline Flush 10 ML SYR IVP (09:10)
[2018-09-26 11:17] LABS: ALT 76 U/L (12-78); AST 16 U/L (15-37); Albumin 2.6 g/dL (3.4-5.0); Alkaline Phosphatase 87 U/L (46-116); Anion Gap 7.9 mmol/L (3-11); BUN 11 mg/dL (7-18); Bilirubin, Total 0.2 mg/dL (0.2-1.0); CO2 29.1 mmol/L (21.0-32.0); CREATININE 0.82 mg/dL (0.55-1.02); Chloride 104 mmol/L (98-107); Glucose 103 mg/dL (70-100); Sodium 141 mmol/L (136-145); Total Protein 5.5 g/dL (6.4-8.2)
[2018-09-27] MEDS: Normal Saline 1,000 ML 800 ML IV (10:30)
[2018-09-27] MEDS: Normal Saline Flush 10 ML SYR IVP (10:30)
[2018-09-28] MEDS: Normal Saline 1,000 ML 800 ML IV (10:35)
[2018-09-28] MEDS: Normal Saline Flush 10 ML SYR IVP (10:35)
[2018-09-29] MEDS: Normal Saline 1,000 ML 800 ML IV (10:01)
[2018-09-29] MEDS: Normal Saline Flush 10 ML SYR IVP (10:01)
[2018-09-30] MEDS: Normal Saline 1,000 ML 800 ML IV (08:30)
[2018-09-30] MEDS: Normal Saline Flush 10 ML SYR IVP (08:46)
[2018-09-30 09:13] LABS: ALT 70 U/L (12-78); AST 20 U/L (15-37); Albumin 3.3 g/dL (3.4-5.0); Alkaline Phosphatase 99 U/L (46-116); Anion Gap 9.7 mmol/L (3-11); BUN 12 mg/dL (7-18); Bilirubin, Total 0.2 mg/dL (0.2-1.0); CO2 31.3 mmol/L (21.0-32.0); Calcium 9.3 mg/dL (8.5-10.1); Chloride 100 mmol/L (98-107); Glucose 95 mg/dL (70-100); Potassium 3.4 mmol/L (3.5-5.1); Sodium 141 mmol/L (136-145); Total Protein 6.9 g/dL (6.4-8.2)
== END 2018-09-30 23:59 | disposition home or self-care (01) ==
LOC: INF 01:20
PROVIDERS: PCP Student in an Organized Health Care Education/Training Program; Visit Provider Student in an Organized Health Care Education/Training Program
DX: E86.0 Dehydration (principal); K50.90 Crohn's disease, unspecified, without complications; Z93.3 Colostomy status
CPT/HCPCS: 36592; 80053; 96360; 96361; 96365; 96366; 96523

== ENCOUNTER 2018-10-10 01:01 | Outpatient (RCR) | payer BC, SELFPAY ==
[2018-10-02] MEDS: Normal Saline 1,000 ML 800 ML IV (09:04)
[2018-10-02] MEDS: Normal Saline Flush 10 ML SYR IVP (09:05)
[2018-10-03] MEDS: Normal Saline 1,000 ML 800 ML IV (09:15)
[2018-10-03] MEDS: Normal Saline Flush 10 ML SYR IVP (09:20)
[2018-10-03 09:58] LABS: ALT 103 U/L (12-78); AST 28 U/L (15-37); Albumin 3.4 g/dL (3.4-5.0); Alkaline Phosphatase 101 U/L (46-116); Anion Gap 7.2 mmol/L (3-11); BUN 13 mg/dL (7-18); Bilirubin, Total 0.2 mg/dL (0.2-1.0); CO2 32.8 mmol/L (21.0-32.0); CREATININE 1.05 mg/dL (0.55-1.02); Calcium 9.2 mg/dL (8.5-10.1); Chloride 99 mmol/L (98-107); Estimated GFR 56.18 (mL/min/1.73m2); Glucose 107 mg/dL (70-100); Sodium 139 mmol/L (136-145)
[2018-10-04] MEDS: Normal Saline 1,000 ML 800 ML IV (08:30)
[2018-10-04] MEDS: Normal Saline Flush 10 ML SYR IVP (08:41)
[2018-10-05] MEDS: Normal Saline 1,000 ML 800 ML IV (09:15)
[2018-10-05] MEDS: Normal Saline Flush 10 ML SYR IVP ×2 (09:17→09:45)
[2018-10-06] MEDS: Normal Saline Flush 10 ML SYR IVP (09:30)
[2018-10-07] MEDS: Normal Saline 1,000 ML 800 ML IV (08:45)
[2018-10-07] MEDS: Normal Saline Flush 10 ML SYR IVP (08:48)
[2018-10-07 09:22] LABS: ALT 62 U/L (12-78); AST 17 U/L (15-37); Albumin 3.3 g/dL (3.4-5.0); Alkaline Phosphatase 97 U/L (46-116); Anion Gap 8.1 mmol/L (3-11); BUN 12 mg/dL (7-18); Bilirubin, Total 0.2 mg/dL (0.2-1.0); CO2 29.9 mmol/L (21.0-32.0); CREATININE 0.95 mg/dL (0.55-1.02); Calcium 8.9 mg/dL (8.5-10.1); Chloride 102 mmol/L (98-107); Glucose 91 mg/dL (70-100); Potassium 3.6 mmol/L (3.5-5.1); Sodium 140 mmol/L (136-145); Total Protein 6.8 g/dL (6.4-8.2)
[2018-10-08] MEDS: Normal Saline Flush 10 ML SYR IVP (10:50)
[2018-10-09] MEDS: Normal Saline Flush 10 ML SYR IVP (07:57)
[2018-10-09] MEDS: Normal Saline 1,000 ML 800 ML IV (07:57)
== END 2018-10-31 23:59 | disposition home or self-care (01) ==
LOC: INF 01:01
PROVIDERS: PCP Student in an Organized Health Care Education/Training Program; Visit Provider Student in an Organized Health Care Education/Training Program
DX: K50.90 Crohn's disease, unspecified, without complications (principal); Z45.2 Encounter for adjustment and management of vascular access device
CPT/HCPCS: 36592; 80053; 96360; 96365; 96374; 96523

== ENCOUNTER 2018-11-01 15:32 | Outpatient (RCR) | payer BC, SELFPAY | END 2018-11-28 23:59 | disposition home or self-care (01) | LOC: INF 15:32 | PROVIDERS: PCP Student in an Organized Health Care Education/Training Program; Visit Provider Student in an Organized Health Care Education/Training Program | DX: R69 Illness, unspecified (principal) ==

== ENCOUNTER 2018-11-18 11:21 | Outpatient (CLI) | payer BC, SELFPAY ==
[2018-11-18 12:29] LABS: Potassium 4.5 mmol/L (3.5-5.1)
[2018-11-18 12:33] LABS: Anion Gap 11.2 mmol/L (3-11); BUN 21 mg/dL (7-18); CO2 26.8 mmol/L (21.0-32.0); CREATININE 1.38 mg/dL (0.55-1.02); Calcium 9.5 mg/dL (8.5-10.1); Chloride 98 mmol/L (98-107); Estimated GFR 40.98 (mL/min/1.73m2); Glucose 110 mg/dL (70-100); Magnesium 1.8 mg/dL (1.8-2.4); Potassium 4.5 mmol/L (3.5-5.1); Sodium 136 mmol/L (136-145)
[2018-11-18 12:39] LABS: ALT 217 U/L (12-78); AST 82 U/L (15-37); Albumin 3.7 g/dL (3.4-5.0); Alkaline Phosphatase 363 U/L (46-116); Bilirubin, Total 0.4 mg/dL (0.2-1.0); GGT 225 U/L (5-55)
[2018-11-18 12:50] LABS: Bilirubin, Direct 0.17 mg/dL (0.00-0.20)
== END 2018-11-18 11:41 ==
PROVIDERS: PCP Student in an Organized Health Care Education/Training Program; Visit Provider Internal Medicine Gastroenterology
DX: E87.6 Hypokalemia (principal); K50.912 Crohn's disease, unspecified, with intestinal obstruction
CPT/HCPCS: 36415; 80048; 80076; 82977; 83735; 84132

== ENCOUNTER 2018-11-19 12:40 | Outpatient (CLI) | payer BC, SELFPAY ==
[2018-11-19 13:23] LABS: Prothrombin Time 9.5 sec (9.3-11.0)
[2018-11-19 14:15] LABS: Iron 111 ug/dL (50-175); Total Iron Binding Capacity 479 ug/dL (250-450); Transferrin Sat 23 % (15-50)
[2018-11-19 14:21] LABS: ALT 196 U/L (12-78); AST 74 U/L (15-37); Albumin 3.7 g/dL (3.4-5.0); Alkaline Phosphatase 334 U/L (46-116); Bilirubin, Total 0.4 mg/dL (0.2-1.0)
[2018-11-20 12:09] LABS: ANA Interpretation Negative (NEGAT)
[2018-11-21 09:53] LABS: Hepatitis A IgM Ab Negative (Negative)
[2018-11-21 12:57] LABS: Smooth Muscle Ab Screen Negative (Negative)
[2018-11-21 19:14] LABS: Liver/Kidney Microsome Type 1 <5.0 U
== END 2018-11-19 13:00 ==
PROVIDERS: PCP Student in an Organized Health Care Education/Training Program; Visit Provider Internal Medicine Gastroenterology
DX: K50.912 Crohn's disease, unspecified, with intestinal obstruction (principal)
CPT/HCPCS: 36415; 80076; 83540; 83550; 85610; 86038; 86255; 86709

== ENCOUNTER 2018-11-30 01:37 | Outpatient (CLI) | payer BC, SELFPAY ==
[2018-11-30 10:28] LABS: INR 0.9 (0.9-1.1); Prothrombin Time 9.3 sec (9.3-11.0)
[2018-11-30 10:49] LABS: ALT 137 U/L (12-78); AST 56 U/L (15-37); Albumin 3.6 g/dL (3.4-5.0); Alkaline Phosphatase 197 U/L (46-116); Bilirubin, Total 0.5 mg/dL (0.2-1.0); GGT 145 U/L (5-55)
[2018-11-30 11:16] LABS: Bilirubin, Direct 0.18 mg/dL (0.00-0.20)
== END 2018-11-30 01:57 ==
PROVIDERS: PCP Student in an Organized Health Care Education/Training Program; Visit Provider Internal Medicine Gastroenterology
DX: K50.912 Crohn's disease, unspecified, with intestinal obstruction (principal)
CPT/HCPCS: 36415; 80076; 82977; 85610

== ENCOUNTER 2019-01-24 21:24 | Inpatient (IN) | payer BC, SELFPAY ==
[2019-01-24] VITALS (8 sets, daily range): BP systolic 102–134; BP diastolic 57–75; PULSE 90–106; RESP 16; TEMP 36.6; O2SAT 92–98
--- NOTE | 2019-01-24 00:12 | DI.RAD_ITS ---
SYMPTOM/DIAGNOSIS: S/P NG TUBE PLACEMENT PORTABLE AP CHEST: Comparison is made with flat and upright abdomen from earlier in the day. There has been interval placement of a nasogastric tube, the tip of the catheter is seen in the body of the stomach. There is mild atelectasis seen in the left lung base. The lungs are otherwise clear. No gross effusions or pneumothoraces are identified. Heart size and pulmonary vasculature are within normal limits. There is free intraperitoneal air seen beneath the hemidiaphragms. This was present on the xray of the abdomen and pelvis from earlier in the day. The bones appear intact. IMPRESSION: 1. Interval placement of a nasogastric tube, the tip is seen in the body of the stomach. 2. Small amount of free intraperitoneal air. This was present on the xray from earlier in the day. 3. Left basilar atelectasis.
--- NOTE | 2019-01-24 21:28 | W.ED.GENAD ---
Discharge Plan Disposition Patient Disposition: [facility] INPATIENT Condition: Stable Discharge Details Chief Complaint: Abd Prob Clinical Impression: Small bowel obstruction Primary Care Provider: Roxana Cardenas ED Provider: Yung Peter Home Meds and New Rx's Prescriptions: No Action ProAir HFA 200 PUFF HFA aerosol inhaler 1 - 2 puff Inhalation Q4-6H PRN Qty: 3 RF: 3 6-MP PO DAILY RF: 0 tramadol 50 mg Tablet 50 mg PO TID PRNRF: 0 acetaminophen 500 mg Tablet 1,000 mg PO Q6H PRNRF: 0 enoxaparin 30 mg/0.3 mL Syringe 30 mg SUBCUT DAILY RF: 0 Medical Decision Making 48 yo female with hx of asthma, crohn's disease with prior small bowel resection who on 01/22 underwent diverting loop ileostomy reversal without complications and was d/c'd earlier today, comes in with n/v and abdominal pain since getting home tonight. She states she has been unable to keep any of her meds for pain down and called her surgeon who told her to come here for an xray. She is tender in the llq without guarding. She has a wound from where her ostomy was closed and has no discharge or signs of infection. Suspect this could be post op pain and was unable to keep her meds down due to n/v, will tx with antiemetics and pain medication and reassess. Will also obtain xray to eval for possible ileus vs sbo vs pneumoperitoneum labs unremarkable, pain controlled with fentanyl though still has some distention of the abdomen and pain with palpation mostly in the left mid and left lower abdomen. Xray shows free air likely from the recent surgery, does have findings worrisome for sbo. Will consult with her surgeon if they would want her transferred vs or managed here, will hold on CT at this time Spoke with Dr. Amin from [facility] who did her surgery and he recommended NG tube and if the surgeon here was comfortable managing her here to keep her here, and if not or if the patient gets worse he would take her in trasnfer. I spoke with Dr. Perkins general surgeon here who accepts the patient. Pt updated and agrees to having NG tube placed Differential Diagnosis sbo, ileus, post op pain, pneumoperitoneum Medical Records Medical records reviewed: Yes I reviewed the patient's medical records. Imaging Data Radiologic Study: Attestation: I personally reviewed and interpreted this imaging study as follows: Imaging: X-Ray Radiologist's impression: 1. Moderate intraperitoneal free air. This is probably secondary to patient's recent postoperative status. 2. Moderate dilatation of the midabdominal small bowel with fluid levels on the upright view consistent with obstruction or ileus. Consider CT abdomen and pelvis as clinically indicated. Lab Data Lab results reviewed: Yes I reviewed the patient's lab results. HPI General Mode of arrival: ambulatory. Date/Time Provider Initiated Documentation: 01/24/19 21:28. Limitations to Documentation: no limitations. Information obtained by: patient. History of Present Illness 48 year old F presents to the emergency department with the chief complaint of nausea, vomit, abdominal pain, described as severe, Quality is described as stabbing, and is localized to the abdomen. Patient reports no radiation. Patient started experiencing this hour(s) (2) and it has been constant. No relieving factors improve symptom(s), No exacerbating factors reported . Patient notes no other symptoms.. Patient did receive the following treatments prior to arrival, none Related Data Home Medications Medication Instructions Recorded Confirmed ProAir HFA 1 - 2 puff INHALATION Q4-6H PRN #3 11/29/17 11/06/18 inhaler 6-MP PO DAILY 07/31/18 11/06/18 acetaminophen 1,000 mg PO Q6H PRN 01/24/19 01/24/19 enoxaparin 30 mg SUBCUT DAILY 01/24/19 01/24/19 tramadol 50 mg PO TID PRN 01/24/19 01/24/19 Previous Rx's Medication Instructions Recorded ProAir HFA 1 - 2 puff INHALATION Q4-6H PRN #3 11/29/17 inhaler Allergies Allergy/AdvReac Type Severity Reaction Status Date / Time No Known Allergies Allergy Unverified 01/24/19 21:34 General JUMA: 5 Review of Systems Review of Systems All systems reviewed & are unremarkable except as noted in HPI and below Constitutional Denies chills, Denies fever(s) and Denies weakness Cardiovascular Denies chest pain and Denies dyspnea Respiratory Denies cough and Denies dyspnea Integumentary/Breasts Denies rash Neurologic Denies weakness [facility] Medical History Asthma (Chronic 11/16/16) Tobacco use disorder (Chronic 11/16/16) Ovarian cyst, left (Chronic 11/19/17) Crohn's disease (Chronic 12/20/16) Small bowel obstruction (Resolved) Asthma Crohn's disease Tobacco use disorder Surgical History H/O resection of small bowel (Resolved 09/04/18) Status post reversal of ileostomy (Chronic 01/22/19) Colonoscopy w/ BX (Resolved 11/27/16) Family History Mother Neoplasm Father Substance abuse Neoplasm Sister No problems noted. Sister No problems noted. Brother No problems noted. Brother No problems noted. Social History Smoking/Tobacco Use Status: Former Tobacco Use Quit Date: 09/04/18 Alcohol Intake: former Drug use: Never Substance use type: does not use Adopted: No Caregiver/Support person: No Foster care: No Household members: spouse and children Number of Children: 1 current occupation: Cleaning houses Pets and animals: Yes Pets and animals: dog(s) What type of physical activity do you participate in: none Do you feel safe at home: Yes Do you feel safe in your relationship?: Yes Exam Const General: no acute distress Orientation: alert HENMT Head: normal to inspection Ears: external ears normal General nose exam: external nose normal Mouth: moist mucous membranes Eyes General: appearance normal, both eyes and all related structures Neck Neck: normal visual inspection Resp Effort & Inspection: normal respiratory effort and able to speak in complete sentences Cardio Rate: regular rate GI Palpation: tender Skin General skin exam: no rashes or lesions noted Neuro General: alert and oriented x3 Extrem General: normal to inspection Psych Mental Status: mental status grossly normal
--- NOTE | 2019-01-24 21:45 | ED.GENADUL_ITS ---
Discharge Plan Disposition Patient Disposition: [facility] INPATIENT Condition: Stable Discharge Details Chief Complaint: Abd Prob Clinical Impression: Small bowel obstruction Primary Care Provider: Roxana Cardenas ED Provider: Yung Peter Home Meds and New Rx's Prescriptions: No Action ProAir HFA 200 PUFF HFA aerosol inhaler 1 - 2 puff Inhalation Q4-6H PRN Qty: 3 RF: 3 6-MP PO DAILY RF: 0 tramadol 50 mg Tablet 50 mg PO TID PRNRF: 0 acetaminophen 500 mg Tablet 1,000 mg PO Q6H PRNRF: 0 enoxaparin 30 mg/0.3 mL Syringe 30 mg SUBCUT DAILY RF: 0 Medical Decision Making 48 yo female with hx of asthma, crohn's disease with prior small bowel resection who on 01/22 underwent diverting loop ileostomy reversal without complications and was d/c'd earlier today, comes in with n/v and abdominal pain since getting home tonight. She states she has been unable to keep any of her meds for pain down and called her surgeon who told her to come here for an xray. She is tender in the llq without guarding. She has a wound from where her ostomy was closed and has no discharge or signs of infection. Suspect this could be post op pain and was unable to keep her meds down due to n/v, will tx with antiemetics a nd pain medication and reassess. Will also obtain xray to eval for possible ileus vs sbo vs pneumoperitoneum labs unremarkable, pain controlled with fentanyl though still has some distention of the abdomen and pain with palpation mostly in the left mid and left lower abdomen. Xray shows free air likely from the recent surgery, does have findings worrisome for sbo. Will consult with her surgeon if they would want her transferred vs or managed here, will hold on CT at this time Spoke with Dr. Amin from [facility] [place] who did her surgery and he recommended NG tube and if the surgeon here was comfortable managing her here to keep her here, and if not or if the patient gets worse he would take her in trasnfer. I spoke with Dr. Perkins general surgeon here who accepts the patient. Pt updated and agrees to having NG tube placed Differential Diagnosis sbo, ileus, post op pain, pneumoperitoneum Medical Records Medical records reviewed: Yes I reviewed the patient's medical records. Imaging Data Radiologic Study: Attestation: I personally reviewed and interpreted this imaging study as follows: Imaging: X-Ray Radiologist's impression: 1. Moderate intraperitoneal free air. This is probably secondary to patient's recent postoperative status. 2. Moderate dilatation of the midabdominal small bowel with fluid levels on the upright view consistent with obstruction or ileus. Consider CT abdomen and pelvis as clinically indicated. Lab Data Lab results reviewed: Yes I reviewed the patient's lab results. HPI General Mode of arrival: ambulatory . Date/Time Provider Initiated Documentation: 01/24/19 21:28 . Limitations to Documentation: no limitations . Information obtained by: patient . History of Present Illness 48 year old F presents to the emergency department with the chief complaint of nausea, vomit, abdominal pain, described as severe, Quality is described as stabbing, and is localized to the abdomen. Patient reports no radiation. Patient started experiencing this hour(s) (2) and it has been constant. No relieving factors improve symptom(s), No exacerbating factors reported . Patient notes no other symptoms.. Patient did receive the following treatments prior to arrival, none Related Data Home Medications Medication Instructions Recorded Confirmed ProAir HFA 1 - 2 puff INHALATION Q4-6H PRN #3 11/29/17 11/06/18 inhaler 6-MP PO DAILY 07/31/18 11/06/18 acetaminophen 1,000 mg PO Q6H PRN 01/24/19 01/24/19 enoxaparin 30 mg SUBCUT DAILY 01/24/19 01/24/19 tramadol 50 mg PO TID PRN 01/24/19 01/24/19 Previous Rx's Medication Instructions Recorded ProAir HFA 1 - 2 puff INHALATION Q4-6H PRN #3 11/29/17 inhaler Allergies Allergy/AdvReac Type Severity Reaction Status Date / Time No Known Allergies Allergy Unverified 01/24/19 21:34 General JUMA: 5 Review of Systems Review of Systems All systems reviewed & are unremarkable except as noted in HPI and below Constitutional Denies chills, Denies fever(s) and Denies weakness Cardiovascular Denies chest pain and Denies dyspnea Respiratory Denies cough and Denies dyspnea Integumentary/Breasts Denies rash Neurologic Denies weakness [facility] Medical History Asthma (Chronic 11/16/16) Tobacco use disorder (Chronic 11/16/16) Ovarian cyst, left (Chronic 11/19/17) Crohn's disease (Chronic 12/20/16) Small bowel obstruction (Resolved) Asthma Crohn's disease Tobacco use disorder Surgical History H/O resection of small bowel (Resolved 09/04/18) Status post reversal of ileostomy (Chronic 01/22/19) Colonoscopy w/ BX (Resolved 11/27/16) Family History Mother Neoplasm Father Substance abuse Neoplasm Sister No problems noted. Sister No problems noted. Brother No problems noted. Brother No problems noted. Social History Smoking/Tobacco Use Status: Former Tobacco Use Quit Date: 09/04/18 Alcohol Intake: former Drug use: Never Substance use type: does not use Adopted: No Caregiver/Support person: No Foster care: No Household members: spouse and children Number of Children: 1 current occupation: Cleaning houses Pets and animals: Yes Pets and animals: dog(s) What type of physical activity do you participate in: none Do you feel safe at home: Yes Do you feel safe in your relationship?: Yes Exam Const General: no acute distress Orientation: alert HENMT Head: normal to inspection Ears: external ears normal General nose exam: external nose normal Mouth: moist mucous membranes Eyes General: appearance normal, both eyes and all related structures Neck Neck: normal visual inspection Resp Effort & Inspection: normal respiratory effort and able to speak in complete sentences Cardio Rate: regular rate GI Palpation: tender Skin General skin exam: no rashes or lesions noted Neuro General: alert and oriented x3 Extrem General: normal to inspection Psych Mental Status: mental status grossly normal
[2019-01-24] MEDS: Ketorolac 15 MG/ML VIAL IVP (21:56)
[2019-01-24] MEDS: Normal Saline 1,000 ML 1000 ML IV (21:56)
[2019-01-24] MEDS: Ondansetron 4 MG/2 ML VIAL IVP (22:00)
[2019-01-24 22:07] LABS: Abs Immature Grans 0.01 k/cumm (0.0-0.09); Absolute Basophil Count 0.02 k/cumm (0.0-0.2); Absolute Eosinophil Count 0.08 k/cumm (0.0-0.7); Absolute Neutrophil Count 6.78 k/cumm (1.2-6.7); Basophils % 0.3; HCT 35.3 % (36.0-46.0); HGB 11.9 g/dL (12.0-15.5); Immature Grans % 0.1; Lymphocytes % 5.2; Mean Corp. HGB Concentration 33.7 g/dL (32.0-36.0); Mean Corpuscular Hemoglobin 29.4 pg (27.0-33.0); Mean Corpuscular Volume 87.2 fL (80-95); Mean Platelet Volume 10.4 fL (8.0-11.0); Monocytes % 5.2; Neutrophils % 88.2; Platelet Count 198 x1000/uL (130-400); RBC 4.05 m/cumm (4.00-5.20); RBC Distribution Width 13.5 % (11.7-14.6); White Blood Cell Count 7.69 k/cumm (4.4-10.8)
[2019-01-24 22:09] LABS: ALT 61 U/L (12-78); AST 19 U/L (15-37); Albumin 2.8 g/dL (3.4-5.0); Alkaline Phosphatase 85 U/L (46-116); Anion Gap 8.1 mmol/L (3-11); BUN 13 mg/dL (7-18); Bilirubin, Total 0.6 mg/dL (0.2-1.0); CO2 25.9 mmol/L (21.0-32.0); CREATININE 0.93 mg/dL (0.55-1.02); Chloride 101 mmol/L (98-107); Glucose 140 mg/dL (70-100); Lipase 68 U/L (73-393); Potassium 3.6 mmol/L (3.5-5.1); Sodium 135 mmol/L (136-145); Total Protein 6.2 g/dL (6.4-8.2)
[2019-01-24 22:11] LABS: INR 1.1 (0.9-1.1); PTT Activated 27.5 sec (21.0-31.4); Prothrombin Time 11.2 sec (9.3-11.0)
--- NOTE | 2019-01-24 22:14 | DI.RAD_ITS ---
SYMPTOM/DIAGNOSIS: S/P OSTOMY REVERSAL, PAIN, NAUSEA,. VOMITING, ? OBSTRUCTION FLAT AND UPRIGHT ABDOMEN: Heart size is normal. Lung bases are clear with slight thickening of the left lateral basilar pleural space which may represent a small effusion or atelectasis. Pneumonia cannot be excluded. There is a moderate amount of free air seen beneath both hemidiaphragms. No organomegaly is seen. There are mildly dilated loops of small bowel with fluid levels in the central abdomen. This may represent an ileus or obstruction. The bones appear intact. IMPRESSION: 1. Moderate amount of free intraperitoneal air. This may be due to the patient's recent surgery. 2. Moderately dilated loops of small bowel with fluid levels in the central abdomen. This may represent obstruction versus ileus.
[2019-01-24 22:23] LABS: Calcium 8.5 mg/dL (8.5-10.1)
[2019-01-24] MEDS: fentaNYL 100 MCG/2 ML VIAL 50 MCG IVP (22:34)
--- NOTE | 2019-01-24 22:37 | DI.VRAD_ITS ---
EXAM: XR Abdomen, 2 Views EXAM DATE/TIME: 01/24/2019 9:39 PM CLINICAL HISTORY: 48 years old, female; Abdominal pain; Generalized; Prior surgery; Surgery date: Post-operative (0-2 days); Surgery type: Ostomy reversal TECHNIQUE: Imaging protocol: Frontal view of the abdomen/pelvis with upright view of the abdomen. COMPARISON: CR XR abdomen flat upright 08/09/2018 8:36 AM FINDINGS: Lower thorax: Heart size normal. Lung bases are clear with slight thickening of the left lateral basilar pleural space which could relate to trace basilar effusion. Gastrointestinal tract: Dilated mid abdominal small bowel loops with multiple fluid levels on the upright view. This is nonspecific and could relate to obstruction or ileus. No gross pneumatosis or portal gas. Paucity of gas in the colon. Intraperitoneal space: Moderate intraperitoneal free air collecting beneath the diaphragm bilaterally on the upright view. Bones/joints: Unremarkable for age. Soft tissues: No pathological calcifications or soft tissue masses. IMPRESSION: 1. Moderate intraperitoneal free air. This is probably secondary to patient's recent postoperative status. 2. Moderate dilatation of the midabdominal small bowel with fluid levels on the upright view consistent with obstruction or ileus. Consider CT abdomen and pelvis as clinically indicated. 3. THIS REPORT CONTAINS FINDINGS THAT MAY BE CRITICAL TO PATIENT CARE. The findings were verbally communicated via telephone conference with Yung Peter at 10:37 PM EDT on 01/24/2019. The findings were acknowledged and understood. Dictated and Authenticated by: Preston Garcia MD. Ordering:REA Barragan MD
[2019-01-24] MEDS: Lidocaine 2% Viscous 15 ML CUP (23:00)
[2019-01-24] MEDS: LORazepam 2 MG/ML VIAL 1 MG IVP (23:33)
[2019-01-24] MEDS: Benzocaine 20% 60 ML CAN (23:35)
[2019-01-24 23:38] LABS: C-Reactive Protein 16.32 mg/dL (0.0-0.3)
--- NOTE | 2019-01-24 23:43 | HPE_ITS ---
Date of service: 01/24/19 Time of Service: 23:42 Assessment and Plan (1) H/O resection of small bowel: Current visit: No Status: Resolved (2) Asthma: Current visit: No Status: Chronic (3) Crohn's disease: Current visit: No Status: Chronic Qualifiers: Digestive disease complication type: unspecified complication Gastrointestinal tract location: small and large intestine Qualified Code(s): K50.819 - Crohn's disease of both small and large intestine with unspecified complications (4) Post-operative state: Current visit: Yes Status: Acute (5) Ileus, postoperative: Current visit: Yes Status: Acute POD #3 from diverting ileostomy takedown. Pt has a history of Crohn's. From reviewing her surgical notes and endoscopy reports, path reports, CT reports, it appears that was confined to terminal ileum and small bowel. It was medication refractory. This area has now been resected. She underwent ileostomy takedown was discharged on postop day 2. Ultimately she developed nausea and vomiting after eating [employer]. And return to [facility]. Patient does not feel that her symptoms are Crohn's. Her CRP is high. However I do not have any other CRPs to compare this with and this could be elevated simply because of her postop state. There does not appear to be any other signs of infection. Clinically there does not appear to be any leak or abscess or other infections. I do not think we need to re-CT scan her at this point. If she does not improve in the next 2 to 3 days or her clinical condition deteriorates then we will obtain a CT. She is not currently on steroids or any other immunomodulating medications. We will continue to treat her conservatively for ileus. She does have a very low albumin. If her postop ileus continues she may need PICC line placement and TPN for nutritional support. She is required this in the past. If there is any signs of her requiring repeat surgery or if this does not appear to be Crohn's and she will transfer to be transferred back to [facility] for care of by her colorectal surgeon and GI physician. Currently this does not appear to be from her Crohn's or from an infectious process. I feel this is more mechanical and physiologic. And will continue with NG tube decompression and IV hydration, close nursing observation and supportive care and conservative medical management. 90 mins spent doing Consultation and reviewing patient's medical chart History of Present Illness Consults Consult date: 01/24/19 Requesting physician: Preston Treviño Narrative: pt had ileostomy takedown at [facility]. Was d/c today. Came home triwd to eat. b/c very distended adn vomiting. admitted to [facility]. ED: 48 yo female with hx of asthma, crohn's disease with prior small bowel resection who on 01/22 underwent diverting loop ileostomy reversal without complications and was d/c'd earlier today, comes in with n/v and abdominal pain since getting home tonight. She states she has been unable to keep any of her meds for pain down and called her surgeon who told her to come here for an xray. She is tender in the llq without guarding. She has a wound from where her ostomy was closed and has no discharge or signs of infection. Suspect this could be post op pain and was unable to keep her meds down due to n/v, will tx with antiemetics and pain medication and reassess. Will also obtain xray to eval for possible ileus vs sbo vs pneumoperitoneum labs unremarkable, pain controlled with fentanyl though still has some distention of the abdomen and pain with palpation mostly in the left mid and left lower abdomen. Xray shows free air likely from the recent surgery, does have findings worrisome for sbo. Will consult with her surgeon if they would want her transferred vs or managed here, will hold on CT at this time Spoke with Dr. Amin from [facility] who did her surgery and he recommended NG tube and if the surgeon here was comfortable managing her here to keep her here, and if not or if the patient gets worse he would take her in trasnfer. I spoke with Dr. Perkins general surgeon here who accepts the patient. Pt updated and agrees to having NG tube place -I did review notes from CRC- Osiris from [facility] and Ivory WINSTON from [facility]. pt had sx 01/22 and d/c'ed 01/24. Per the patient: She was tolerating a regular diet and had a bowel movement in the hospital. She was discharged home. She stopped at the pharmacy and picked up her prescription for tramadol. While she was waiting for the pharmacy she stopped and had [employer]. About 4 to 6 hours after eating the [employer] she started having intense left lower quadrant pain. She took a tramadol. About an hour after she took the tramadol she started getting significant nausea and vomiting which she attributed to the tramadol. She is concerned because she was having pain on the left and her surgery was on the right. She has no incision. She just has a wound from the ostomy site. She has been off all steroids since November 2017. Her GI doctor wanted her on started on 6- MP as soon as poss after her surgery (per his notes). Per the patient she is not on it. per the pt- She was supposed to start Biologics in January (I am not certain who is prescribing this). She is not currently on any immunosuppression. She has not had a Crohn's flare since she had surgery. Her surgery was in August and she had an ileocolic resection along with 25 inches of distal ileum. They did a primary anastomosis with a diverting loop ostomy. She had problems with high output. They kept her on high-fiber and Imodium. She had a line in for TPN and supplemental fluids. The PICC line was taken out sometime in November. Trying to review her medications from the chart and notes from outside providers is inconsistent and conflicting. However patient is very knowledgeable about her old health care and says she is not on any steroids on biologic other immunomodulators at this time. I do not any have any of her labs. Her CRP today is 16.3. This could very easily be from post surgery status. We I do not have the CRP at any point from her being a patient in [facility]. Per the patient she has been having problems since 2008 with Crohn's flares. This does not feel like a Crohn's flare. I spent greater than 60 minutes reviewing all her notes from her colorectal surgeon Dr. Canada at [facility] and her GI doctor Dr. Milligan at [facility]. Plus reviewing all the CTs and lab work. And her notes from her PCP. no thrush. no headaches. No CP or SOB. no productive cough. no dysuria. no leg pain or swelling. PICC line was removed in November 2018. She only had IVs in when she was in [facility] for her recent surgery. She has no thrombophlebitis. She did have a temperature earlier this morning. It has resolved. She has been getting Tylenol and Toradol. There is no sign of any other source of infection. Her white count is normal. Review of Systems Review of Systems All systems reviewed & are unremarkable except as noted in HPI and below Constitutional Reports as per HPI, Reports system reviewed and no additional complaints, except as docu, Denies anorexia, Denies chills, Denies difficulty sleeping, Denies fatigue, Denies headache(s), Denies lethargy, Denies malaise, Denies poor appetite, Denies weakness, Denies weight gain and Denies weight loss Eyes Reports as per HPI, Reports system reviewed and no additional complaints, except as docu and Denies change in vision ENT Reports system reviewed and no additional complaints, except as docu, Reports as per HPI, Denies change in voice, Denies dental pain, Denies dizziness, Denies facial pain and Denies headache(s) Cardiovascular Reports as per HPI, Reports system reviewed and no additional complaints, except as docu, Denies chest pain, Denies chest pain with activity, Denies syncope, Denies leg edema and Denies dyspnea Respiratory Reports as per HPI, Reports system reviewed and no additional complaints, except as docu, Denies chest congestion, Denies cough, Denies pain with cough and Denies dyspnea Gastrointestinal Reports as per HPI, Reports system reviewed and no additional complaints, except as docu, Reports abdominal pain, Reports bloating, Reports cramping, Reports nausea and Reports vomiting Comments: pt is not having any pain at this time. pain was in LLQ. s/p diverting loop ileostomy takedown on 01/22. She tolerated a reg diet in hosp and was having BM. Today- no flatus or stool. She is not having any significant drainage from her stoma site. She has no minimal bowels. She does not have any pain at this time. She is afebrile at this point. She had a temp earlier today. She is aware that narcotics cause bowel hypokinemia and does not want to take narcotics and would like to control her pain with nonnarcotic alternatives. She understands the importance of ambulation to encouraging bowel function to return. The ostomy takedown site is clean dry and intact. There is no necrotic tissue. It is minimal drainage. There is no signs of infection. Minimal gra nulation tissue at this point. Musculoskeletal Reports system reviewed and no additional complaints, except as docu, Reports as per HPI, Denies abnormal gait, Denies arthralgias and Denies muscle weakness Integumentary/Breasts Reports system reviewed and no additional complaints, except as docu, Reports as per HPI, Denies changing lesions, Denies new lesions and Denies jaundice Neurologic Reports system reviewed and no additional complaints, except as docu, Reports as per HPI, Denies abnormal speech, Denies abnormal gait, Denies dizziness, Denies syncope, Denies headache(s), Denies memory loss and Denies weakness Psychiatric Reports system reviewed and no additional complaints, except as docu, Reports as per HPI, Denies change in appetite and Denies memory loss Endocrine Denies fatigue, Denies polydipsia and Denies polyuria Hematologic/Lymphatic Reports system reviewed and no additional complaints, except as docu, Denies easy bleeding and Denies easy bruising Allergic/Immunologic Denies system reviewed and no additional complaints, except as docu, Reports as per HPI and Denies urticaria PFSH Medical History Ileus, postoperative (Acute) Post-operative state (Acute) Asthma (Chronic 11/16/16) Tobacco use disorder (Chronic 11/16/16) Ovarian cyst, left (Chronic 11/19/17) Crohn's disease (Chronic 12/20/16) Small bowel obstruction (Resolved) Asthma Crohn's disease Tobacco use disorder Surgical History H/O resection of small bowel (Resolved 09/04/18) Status post reversal of ileostomy (Chronic 01/22/19) Colonoscopy w/ BX (Resolved 11/27/16) Family History Mother Neoplasm Father Substance abuse Neoplasm Sister No problems noted. Sister No problems noted. Brother No problems noted. Brother No problems noted. Social History Smoking/Tobacco Use Status: Former Tobacco Use Quit Date: 09/04/18 Alcohol Intake: former Drug use: Never Substance use type: does not use Adopted: No Caregiver/Support person: No Foster care: No Household members: spouse and children Number of Children: 1 current occupation: Cleaning houses Pets and animals: Yes Pets and animals: dog(s) What type of physical activity do you participate in: none Do you feel safe at home: Yes Do you feel safe in your relationship?: Yes Meds Home Medications Medication Instructions Recorded Confirmed Type 6-MP PO DAILY 07/31/18 11/06/18 History acetaminophen 1,000 mg PO Q6H PRN 01/24/19 01/24/19 History enoxaparin 30 mg SUBCUT DAILY 01/24/19 01/24/19 History tramadol 50 mg PO TID PRN 01/24/19 01/24/19 History Allergies Allergy/AdvReac Type Severity Reaction Status Date / Time tramadol AdvReac vomiting Verified 01/25/19 14:26 Exam Const General: cooperative, healthy appearing, comfortable, no acute distress, well developed and well groomed Nutritional Appearance: average body habitus and well nourished Orientation: alert, awake and oriented x3 HENMT Head: normal to inspection, normocephalic and atraumatic Ears: hearing grossly normal bilaterally and external ears normal General nose exam: external nose normal Face and sinus: normal facial exam and sinuses nontender Mouth: oral mucosae normal, lip normal, tongue normal and moist mucous membranes Teeth and gingiva: dentition normal Other: no thrush Eyes General: appearance normal, both eyes and all related structures Conjunctivae: conjunctivae normal Sclera: sclerae normal Pupils: PERRL Neck Neck: normal visual inspection and full ROM Chest Chest: normal inspection of the chest Resp Effort & Inspection: normal respiratory effort, able to speak in complete sentences, no cough, no nasal flaring, not tachypneic and no use of accessory muscles Auscultation: clear to auscultation bilaterally, no rales, no rhonchi and no wheezes Cardio Jugular venous pressure: no JVD Rate: regular rate Rhythm: regular rhythm GI Inspection: normal to inspection, no edema, distended (mild ) and incision Palpation: soft, no masses, tender and No ascites Auscultation: absent bowel sounds Other: There is no incision. Only the site from the ostomy. The ostomy site is clean dry and intact minimal drainage no signs of infection. She has minimal pain in the left lower quadrant this is where the pain was last night. She is mild to moderate pain around the stoma site. There is no diffuse peritonitis. She is mild to moderate distention. She has very few bowel sounds and for the most part of her abdomen. Again she does not have diffuse peritonitis. She has had minimal output from her NG tube. The NG tube is in good position on x-ray. Skin General skin exam: no rashes or lesions noted Trauma: no lacerations or abrasions Neuro General: alert, oriented x3, oriented, gait normal, moves all extremities, no focal motor deficits and CN's II-XI intact bilaterally Cognition: normal cognition Speech: speech normal Gait: normal gait Motor: muscle tone normal throughout Extrem General: normal to inspection, full ROM and no clubbing, cyanosis or edema Other: No thrombophlebitis from IV sites. No rashes Psych Appearance: grossly normal and well kempt Mental Status: mental status grossly normal Speech and Movement: speech and movement normal Affect: normal affect Results Labs : 01/25/19 06:20 01/25/19 06:20 Laboratory Results - last 24 hr 01/24/19 01/24/19 01/24/19 21:50 21:50 21:50 WBC 7.69 RBC 4.05 Hgb 11.9 L Hct 35.3 L MCV 87.2 MCH 29.4 MCHC 33.7 RDW 13.5 Plt Count 198 MPV 10.4 Immature Gran % 0.1 Neutrophils % 88.2 Lymphocytes % 5.2 Monocytes % 5.2 Eosinophils % 1.0 Basophils % 0.3 Absolute Neutrophils 6.78 H Absolute Lymphocytes 0.40 L Absolute Monocytes 0.40 Absolute Eosinophils 0.08 Absolute Basophils 0.02 PT 11.2 H INR 1.1 APTT 27.5 Sodium 135 L Potassium 3.6 Chloride 101 Carbon Dioxide 25.9 Anion Gap 8.1 BUN 13 Creatinine 0.93 Estimated GFR/1.73 m2 >= 60.00 Glucose 140 H Calcium 8.5 Total Bilirubin 0.6 AST 19 ALT 61 Alkaline Phosphatase 85 C-Reactive Protein Total Protein 6.2 L Albumin 2.8 L Lipase 68 L 01/24/19 21:50 WBC RBC Hgb Hct MCV MCH MCHC RDW Plt Count MPV Immature Gran % Neutrophils % Lymphocytes % Monocytes % Eosinophils % Basophils % Absolute Neutrophils Absolute Lymphocytes Absolute Monocytes Absolute Eosinophils Absolute Basophils PT INR APTT Sodium Potassium Chloride Carbon Dioxide Anion Gap BUN Creatinine Estimated GFR/1.73 m2 Glucose Calcium Total Bilirubin AST ALT Alkaline Phosphatase C-Reactive Protein 16.32 H Total Protein Albumin Lipase Last Vital Signs Temp 36.6 C 04/26/19 21:31 Pulse 106 H 01/24/19 23:01 Resp 16 01/24/19 21:31 BP 134/75 01/24/19 23:01 Pulse Ox 97 01/24/19 23:01
[2019-01-25] VITALS (11 sets, daily range): BP systolic 89–129; BP diastolic 53–77; PULSE 63–101; RESP 14–20; TEMP 36.6–38.2; O2SAT 94–100
--- NOTE | 2019-01-25 00:19 | DI.VRAD_ITS ---
EXAM: XR Chest, 1 View EXAM DATE/TIME: 01/24/2019 11:55 PM CLINICAL HISTORY: 48 years old, female; Device placement; Ng tube; Prior surgery; Surgery date: Post-operative (0-2 days); Surgery type: Ostomy reversal 2 days ago TECHNIQUE: Imaging protocol: XR of the chest, 1 view. COMPARISON: CR XR ABD FLAT UPRIGHT PA CHEST 06/22/2018 8:11 AM FINDINGS: Tubes, catheters and devices: Nasogastric tube placed with its tip in the gastric body, well-positioned. Lungs: Lung morataya are clear. No infiltrates. Mild linear atelectasis in the left base. Pleural space: No pleural effusion or pneumothorax. Heart/Mediastinum: Heart size normal. No mediastinal widening. Pulmonary vaculature normal. No tracheal shift. Upper abdomen: Small amount of free air below the diaphragm bilaterally as noted on the recent abdomen radiograph. Bones/joints: No acute osseous abnormalities are identified. IMPRESSION: 1. Nasogastric tube tip in the gastric body. 2. Small to moderate amount of subdiaphragmatic air again noted, not significant changed from the recent abdomen x-ray. 3. No acute intrathoracic process. Dictated and Authenticated by: Preston Garcia MD. Ordering:REA Barragan MD
[2019-01-25] MEDS: fentaNYL 100 MCG/2 ML VIAL 50 MCG IVP (00:25)
[2019-01-25] MEDS: Lactated Ringers 1,000 ML 125 ML IV ×3 (00:28→18:08)
[2019-01-25] MEDS: Normal Saline Flush 10 ML SYR IVP ×5 (03:18→23:18)
--- NOTE | 2019-01-25 06:49 | PDOC.CMIN ---
Care Management Initial Assess REASON FOR HOSPITALIZATION:: SBO-recurrent PAST MEDICAL HISTORY/PAST SURGICAL HISTORY:: Asthma, Chrohn's, Ovarian cyst, SBO, tobacco use disorder, colonscopy with BX, resection of small bowel, s/p reversal fo ileostomy PREVIOUS FUNCTIONAL STATUS/SOCIAL/FAMILY SUPPORTS:: Yenny resides with her Anselmo of 25 years in [place], [place] She has one son who resides with her who she reports as supportive. Yenny states that she does not work at this time. She is independent, drives, and manages her own ADL's. CURRENT FUNCTIONAL STATUS:: Yenny is sleeping on her side, NG tube in place. Her arrived and reported that Yenny had just left [facility] yesterday after an ostomy reversal. CM relayed to Anselmo that Yenny was sleeping soundly and this expert medical writer had permitted her to continue sleeping. Anselmo, when leaving shortly therafter stated that Yenny was incredibly tired and told Anselmo she would call him when up for a visit. Anselmo shared his relief that Yenny was not currently in pain, and getting some rest as he reported she was in terrible pain and discomfort prior to admission. Has patient been provided with information about the portal?: Yes Did the patient sign up for the portal?: No CODE STATUS:: Full Code INSURANCE COVERAGE / FINANCIAL ISSUES:: BC/BS CURRENT HOME/COMMUNITY SERVICES/EQUIPMENT:: Currently Yenny has no services or medical equipment in the community. PRIMARY CARE PHYSICIAN:: Roxana Cardenas POTENTIAL DISCHARGE NEEDS:: Follow up appointments. PATIENT/FAMILY EDUCATION NEEDS:: Review discharge instructions, discuss Ask Me Three. ANTICIPATED BARRIERS TO DISCHARGE:: None identified at this time. TRANSPORTATION:: Via private vehicle with Anselmo PLAN:: Yenny will return home when ready per MD; no anticipated services at this time. She will follow up with her PCP and plan of care as prescribed. Her Anselmo will transport via private vehicle when ready.
--- NOTE | 2019-01-25 06:53 | INITIAL_ITS ---
Care Management Initial Assess REASON FOR HOSPITALIZATION:: SBO-recurrent PAST MEDICAL HISTORY/PAST SURGICAL HISTORY:: Asthma, Chrohn's, Ovarian cyst, SBO, tobacco use disorder, colonscopy with BX, resection of small bowel, s/p reversal fo ileostomy PREVIOUS FUNCTIONAL STATUS/SOCIAL/FAMILY SUPPORTS:: Yenny resides with her Anselmo of 25 years in [place], [place] She has one son who resides with her who she reports as supportive. Yenny states that she does not work at this time. She is independent, drives, and manages her own ADL's. CURRENT FUNCTIONAL STATUS:: Yenny is sleeping on her side, NG tube in place. Her arrived and reported that Yenny had just [place] [facility] [place] after an ostomy reversal. CM relayed to Anselmo that Yenny was sleeping soundly and this short story writer had permitted her to continue sleeping. Anselmo, when leaving shortly therafter stated that Yenny was incredibly tired and told Anselmo she would call him when up for a visit. Anselmo shared his relief that Yenny was not currently in pain, and getting some rest as he reported she was in terrible pain and discomfort prior to admission. Has patient been provided with information about the portal?: Yes Did the patient sign up for the portal?: No CODE STATUS:: Full Code INSURANCE COVERAGE / FINANCIAL ISSUES:: BC/BS CURRENT HOME/COMMUNITY SERVICES/EQUIPMENT:: Currently Yenny has no services or medical equipment in the community. PRIMARY CARE PHYSICIAN:: Roxana Cardenas POTENTIAL DISCHARGE NEEDS:: Follow up appointments. PATIENT/FAMILY EDUCATION NEEDS:: Review discharge instructions, discuss Ask Me Three. ANTICIPATED BARRIERS TO DISCHARGE:: None identified at this time. TRANSPORTATION:: Via private vehicle with Anselmo PLAN:: Yenny will return home when ready per MD; no anticipated services at this time. She will follow up with her PCP and plan of care as prescribed. Her Anselmo will transport via private vehicle when ready.
--- NOTE | 2019-01-25 07:00 | DI.RAD_ITS ---
SYMPTOM/DIAGNOSIS: F/U SMALL BOWEL OBSTRUCTION FLAT AND UPRIGHT ABDOMEN: Comparison is made with 01/24/19. There is a small infiltrate seen in the left lung base. There is again seen free air beneath the hemidiaphragms. This may be due to patient's recent surgery. The tip of the nasogastric tube is seen overlying the body of the stomach. There are again seen mildly dilated loops of small bowel in the central abdomen. This may represent ileus or obstruction. No organomegaly is seen. The bones are intact. IMPRESSION: 1. Stable location of the nasogastric tube. 2. Stable small amount of free intraperitoneal air which may be post surgical. 3. Stable small bowel pattern which may represent ileus versus obstruction.
[2019-01-25 07:18] LABS: ALT 51 U/L (12-78); AST 18 U/L (15-37); Albumin 2.3 g/dL (3.4-5.0); Alkaline Phosphatase 78 U/L (46-116); Anion Gap 5.9 mmol/L (3-11); BUN 12 mg/dL (7-18); Bilirubin, Total 0.8 mg/dL (0.2-1.0); C-Reactive Protein 16.58 mg/dL (0.0-0.3); CO2 28.1 mmol/L (21.0-32.0); CREATININE 0.96 mg/dL (0.55-1.02); Chloride 104 mmol/L (98-107); Glucose 95 mg/dL (70-100); Potassium 3.9 mmol/L (3.5-5.1); Sodium 138 mmol/L (136-145); Total Protein 5.4 g/dL (6.4-8.2)
[2019-01-25 07:22] LABS: Platelet Count 203 x1000/uL (130-400)
[2019-01-25 08:50] LABS: HCG Qual (Urine) Negative
--- NOTE | 2019-01-25 10:09 | PHARADMIT ---
Addendum entered by John Thapa III 01/26/19 13:47: Pharmacy Note Subjective notes ileus resolving. passing flatus, patient foing well. Objective VS-OK Mag-1.6 SCr, Lytes-OK No BM yet Assessment Received an infusion of Venofer today, plus another IV Mag bolus (2gm) Plan Plan to remove NG tube if all goes well. Original Note: Admission Pharmacy Clinical Review SMALL BOWEL OBSTRUCTION Code Status Full Code Current Weight Wgt-53.8 kg Renally Cleared and Narrow Therapeutic Index Meds CrCl~ 60.8 mL/min Meds-OK QTc Value / Action Taken none BP Control, Fever BP- 102/64 Tmax- 38.2C Electrolytes reviewed Na- 138 K+3.9 DVT Prophylaxis Lovenox 40mg Opiate Usage / Scheduled Bowel Regimen Ordered yes No Plt/SCr for Heparin / Enoxaparin Plts-203 SCr-0.96 INR for Warfarin inr-1.1 H/H stable, WBC/Bands H&H- 11.9/35.3 WBC- Antibiotic appropriateness none Cultures and Sensitivities none Surgical ABX d/c within 24 hr na DM control / Insulin Dosing BG- 95 Heart Failure (Check EF%) (MARILIA's, B-Block, Diuretics) none IV to PO Switch No Home Meds Reviewed Yes Home Meds Not Ordered Nicotrol, Tramadol, 6-Mercaptopurine Comments RCRP- 16.58
--- NOTE | 2019-01-25 10:18 | DI.VRAD_ITS ---
EXAM: XR Abdomen, 2 Views EXAM DATE/TIME: 01/25/2019 12:00 AM CLINICAL HISTORY: 48 years old, female; Signs and symptoms; Other: SOB TECHNIQUE: Imaging protocol: Frontal view of the abdomen/pelvis with upright view of the abdomen. COMPARISON: SC XR abdomen flat upright 01/24/2019 10:09 PM FINDINGS: Tubes, catheters and devices: The NG tube tip is over the body of the stomach (mid stomach). Gastrointestinal tract: Dilated small bowel with differential air-fluid levels most consistent with small bowel obstruction. Intraperitoneal space: Normal. No free air. Bones/joints: Unremarkable for age. IMPRESSION: 1. The NG tube tip is over the body of the stomach (mid stomach). 2. Dilated small bowel with differential air-fluid levels most consistent with small bowel obstruction. Dictated and Authenticated by: Yung Cagle MD. Ordering:REESE Taylor MD
[2019-01-25] MEDS: Pantoprazole 40 MG VIAL IVP (10:28)
[2019-01-25] MEDS: ACETAMINOPHEN 1,000 MG/100 ML BTL 400 MG IVPB ×2 (10:29→21:06)
[2019-01-25] MEDS: Bacitracin 1 PACKET TP (10:29)
[2019-01-25] MEDS: Enoxaparin 40 MG/0.4 ML SYR SC (14:38)
[2019-01-25 15:20] LABS: Magnesium 1.2 mg/dL (1.8-2.4)
[2019-01-25] MEDS: MAGNESIUM SULFATE 2 GM/50 ML BAG IVPB (16:11)
[2019-01-25] MEDS: Ketorolac 30 MG/ML VIAL IVP ×2 (17:10→23:17)
[2019-01-26] VITALS (7 sets, daily range): BP systolic 94–122; BP diastolic 59–71; PULSE 95–123; RESP 16–18; TEMP 36.9–38.5; O2SAT 92–97
[2019-01-26] MEDS: Lactated Ringers 1,000 ML 125 ML IV ×3 (02:01→23:51)
[2019-01-26] MEDS: Normal Saline Flush 10 ML SYR IVP ×4 (03:24→11:20)
[2019-01-26] MEDS: Ketorolac 30 MG/ML VIAL IVP ×2 (05:14→11:19)
[2019-01-26 07:30] LABS: Anion Gap 4.8 mmol/L (3-11); BUN 10 mg/dL (7-18); CO2 28.2 mmol/L (21.0-32.0); CREATININE 0.73 mg/dL (0.55-1.02); Calcium 8.1 mg/dL (8.5-10.1); Chloride 104 mmol/L (98-107); Glucose 120 mg/dL (70-100); Magnesium 1.6 mg/dL (1.8-2.4); Potassium 3.8 mmol/L (3.5-5.1); Sodium 137 mmol/L (136-145)
[2019-01-26 07:36] LABS: C-Reactive Protein > 25.00 mg/dL (0.0-0.3)
--- NOTE | 2019-01-26 08:00 | DI.RAD_ITS ---
SYMPTOMS/DIAGNOSIS: SMALL BOWEL OBSTRUCTION FLAT AND UPRIGHT ABDOMEN: Comparison examination is 01/25/19. The tip of the nasogastric tube is again seen in the region of the stomach in good position. There is free air again seen beneath the hemidiaphragm which is unchanged. The patient is recently status post abdominal surgery which likely accounts for the free air. The bowel gas pattern again shows air filled loops of small bowel. There is air seen within the colon. Ileus can not be entirely excluded. There is increasing infiltrate in the left lung base. This may represent atelectasis or pneumonia. IMPRESSION: 1. Persistent pneumoperitoneum likely reflecting the patient's recent surgery. 2. Progressive left basilar infiltrate suggesting worsening pneumonia or atelectasis. 3. Tip of NG tube in good position within the stomach.
[2019-01-26 08:01] LABS: Ferritin 223 ng/mL (8-388)
[2019-01-26 08:35] LABS: Iron 5 ug/dL (50-175); Total Iron Binding Capacity 136 ug/dL (250-450); Transferrin Sat 4 % (15-50)
--- NOTE | 2019-01-26 08:49 | DI.VRAD_ITS ---
Addendum created by Giovani Cazares MD on 01/26/2019 8:53:30 AM EDT Findings suspicious for pneumoperitoneum with gas under the right hemidiaphragm. This is decreased in volume compared with the prior. By clinical report, the patient is status post ostomy reversal, which likely accounts for the pneumoperitoneum Initial report created on 01/26/2019 8:49:48 AM EDT EXAM: XR Abdomen, 2 Views EXAM DATE/TIME: 01/26/2019 8:16 AM CLINICAL HISTORY: 48 years old, female; Signs and symptoms and abnormal findings; Abnormal lab test; Elevated wbc; Fever and other: Hypoxia TECHNIQUE: Imaging protocol: Frontal view of the abdomen/pelvis with upright view of the abdomen. COMPARISON: CR XR abdomen flat upright 01/25/2019 9:28 AM FINDINGS: Tubes, catheters and devices: An NG tube extends into stomach. Gastrointestinal tract: Dilated loops of bowel centrally are noted. The colon is normally distended. The findings may reflect an early or partial small bowel obstruction. Intraperitoneal space: Normal. No free air. Bones/joints: Unremarkable for age. IMPRESSION: 1. An NG tube extends into stomach. 2. Dilated loops of bowel centrally are noted. The colon is normally distended. The findings may reflect an early or partial small bowel obstruction. Dictated and Authenticated by: Giovani Cazares MD. Ordering:REESE Taylor MD
[2019-01-26] MEDS: Pantoprazole 40 MG VIAL IVP (08:55)
--- NOTE | 2019-01-26 11:17 | PGE_ITS ---
Date of Service Date of service: 01/26/19 Time of Service: 11:09 Assessment and Plan (1) Ileus, postoperative: Current visit: Yes Status: Acute POD#4 resolving clamp NGT. if no N/v after 4 hrs- than dc tube water and ice as mary ann. IV iron for anemia cont supportive care no abx no steriods/no biologics (2) Post-operative state: Current visit: Yes Status: Acute as above supportive care (3) H/O resection of small bowel: Current visit: No Status: Resolved as above (4) Asthma: Current visit: No Status: Chronic stable (5) Crohn's disease: Current visit: No Status: Chronic stable not on any steriods or biologics at this time Qualifiers: Digestive disease complication type: unspecified complication Gastrointestinal tract location: small and large intestine Qualified Code(s): K50.819 - Crohn's disease of both small and large intestine with unspecified complications (6) Anemia: Current visit: Yes Status: Chronic Subjective Interval history since last seen: pt was passing flatus last pm. c/o irritation from NGT. dry heaving aroun no tube. minimal outptut from tube adn not bringing anything up. xray is much improved- air in colon today Pt is doing well. no headaches. No CP or SOB. no productive cough. no dysuria. no leg pain or swelling. Pt very thirsty/hungry. stick w/ water at this point. hopefully get tube out today Exam Const General: cooperative, healthy appearing, comfortable, no acute distress, well developed and well groomed Nutritional Appearance: average body habitus and well nourished Orientation: alert, awake and oriented x3 [facility] Head: normal to inspection, normocephalic and atraumatic Ears: hearing grossly normal bilaterally and external ears normal General nose exam: external nose normal Face and sinus: normal facial exam and sinuses nontender Mouth: oral mucosae normal, lip normal, tongue normal and moist mucous membranes Teeth and gingiva: dentition normal Eyes General: appearance normal, both eyes and all related structures Conjunctivae: conjunctivae normal Sclera: sclerae normal Pupils: PERRL Neck Neck: normal visual inspection and full ROM Chest Chest: normal inspection of the chest Resp Effort & Inspection: normal respiratory effort, able to speak in complete sentences, no cough, no nasal flaring, not tachypneic and no use of accessory muscles Auscultation: clear to auscultation bilaterally, no rales, no rhonchi and no wheezes Cardio Jugular venous pressure: no JVD Rate: regular rate Rhythm: regular rhythm GI Inspection: normal to inspection, no edema and distended Palpation: soft, no masses, tender (just at surgical site. no LLQ pain today ) and No ascites Other: less distended today. less pain. skin incision site is clean and no infection. no redness. serous drainage only. + bs today- still hypo active though Skin General skin exam: no rashes or lesions noted Neuro General: alert, oriented x3, oriented, no focal motor deficits and CN's II-XI intact bilaterally Cognition: normal cognition Speech: speech normal Motor: muscle tone normal throughout Extrem General: normal to inspection, full ROM and no clubbing, cyanosis or edema Psych Appearance: grossly normal and well kempt Mental Status: mental status grossly normal Speech and Movement: speech and movement normal Affect: normal affect Objective Objective Clinical Data: Abnormal lab results 01/25/19 01/26/19 01/26/19 Range/Units 06:20 06:58 06:58 Glucose 120 H (70-100) mg/dL Calcium 8.1 L (8.5-10.1) mg/dL Magnesium 1.2 L 1.6 L (1.8-2.4) mg/dL Iron 5 L (50-175) ug/dL TIBC 136 L (250-450) ug/dL Transferrin % Sat 4 L (15-50) % C-Reactive Protein > 25.00 H (0.0-0.3) mg/dL Vital Signs Temperature 36.9 C 01/26/19 07:00 Temperature Source Skin 01/26/19 07:00 Pulse 99 H 01/26/19 07:00 Pulse Rhythm Regular 01/25/19 19:53 Respiratory Rate 18 01/26/19 07:00 Respiratory Effort Non-Labored 01/25/19 19:53 Respiratory Depth Normal 01/25/19 19:53 Respiratory Pattern Normal 01/25/19 19:53 Blood Pressure 94/62 L 01/26/19 07:00 Blood Pressure Mean 64 01/25/19 00:15 Blood Pressure Position Sitting 01/24/19 21:31 Pulse Oximetry 94 L 01/26/19 07:00 Oxygen Delivery Method Room Air 01/26/19 07:00 Oxygen Flow Rate 0 01/26/19 07:00 Pain Level 0 01/26/19 07:00 Comment 01/26/19 07:00 Intake & Output 01/25/19 01/25/19 01/26/19 11:59 23:59 11:59 Intake Total 1220 / 2405.417 1185.417 / 2405.417 1060 / 1060 Output Total 260 / 660 400 / 660 400 / 400 Balance 960 / 1745.417 785.417 / 1745.417 660 / 660 Weight 53.8 kg Intake: IV 1100 / 2105.417 1005.417 / 2105.417 1000 / 1000 Oral 120 / 300 180 / 300 60 / 60 Output: Gastric Drainage 200 / 200 100 / 100 Right Nare 200 / 200 100 / 100 Urine 60 / 460 400 / 460 300 / 300 Other: Urine Color Dark Patito Dark Patito Dark Patito Urine Appearance Clear Clear Urine Odor Normal Strong Normal Voiding Methods Toilet Toilet Toilet Laboratory Results WBC 7.69 k/cumm (4.4-10.8) 01/24/19 21:50 RBC 4.05 m/cumm (4.00-5.20) 01/24/19 21:50 Hgb 11.9 g/dL (12.0-15.5) L 01/24/19 21:50 Hct 35.3 % (36.0-46.0) L 01/24/19 21:50 MCV 87.2 fL (80-95) 01/24/19 21:50 MCH 29.4 pg (27.0-33.0) 01/24/19 21:50 MCHC 33.7 g/dL (32.0-36.0) 01/24/19 21:50 RDW 13.5 % (11.7-14.6) 01/24/19 21:50 Plt Count 203 x1000/uL (130-400) 01/25/19 06:20 MPV 10.4 fL (8.0-11.0) 01/24/19 21:50 Immature Gran % 0.1 01/24/19 21:50 Neutrophils % 88.2 01/24/19 21:50 Lymphocytes % 5.2 01/24/19 21:50 Monocytes % 5.2 01/24/19 21:50 Eosinophils % 1.0 01/24/19 21:50 Basophils % 0.3 01/24/19 21:50 Absolute Neutrophils 6.78 k/cumm (1.2-6.7) H 01/24/19 21:50 Absolute Lymphocytes 0.40 k/cumm (1.2-3.4) L 01/24/19 21:50 Absolute Monocytes 0.40 k/cumm (0.11-0.7) 01/24/19 21:50 Absolute Eosinophils 0.08 k/cumm (0.0-0.7) 01/24/19 21:50 Absolute Basophils 0.02 k/cumm (0.0-0.2) 01/24/19 21:50 PT 11.2 sec (9.3-11.0) H 01/24/19 21:50 INR 1.1 (0.9-1.1) 01/24/19 21:50 APTT 27.5 sec (21.0-31.4) 01/24/19 21:50 Sodium 137 mmol/L (136-145) 01/26/19 06:58 Potassium 3.8 mmol/L (3.5-5.1) 01/26/19 06:58 Chloride 104 mmol/L (98-107) 01/26/19 06:58 Carbon Dioxide 28.2 mmol/L (21.0-32.0) 01/26/19 06:58 Anion Gap 4.8 mmol/L (3-11) 01/26/19 06:58 BUN 10 mg/dL (7-18) 01/26/19 06:58 Creatinine 0.73 mg/dL (0.55-1.02) 01/26/19 06:58 Estimated GFR/1.73 m2 >= 60.00 (mL/min/1.73m2) 01/26/19 06:58 Glucose 120 mg/dL (70-100) H 01/26/19 06:58 Calcium 8.1 mg/dL (8.5-10.1) L 01/26/19 06:58 Magnesium 1.6 mg/dL (1.8-2.4) L 01/26/19 06:58 Iron 5 ug/dL (50-175) L 01/26/19 06:58 TIBC 136 ug/dL (250-450) L 01/26/19 06:58 Transferrin % Sat 4 % (15-50) L 01/26/19 06:58 Ferritin 223 ng/mL (8-388) 01/26/19 06:58 Total Bilirubin 0.8 mg/dL (0.2-1.0) 01/25/19 06:20 AST 18 U/L (15-37) 01/25/19 06:20 ALT 51 U/L (12-78) 01/25/19 06:20 Alkaline Phosphatase 78 U/L (46-116) 01/25/19 06:20 C-Reactive Protein > 25.00 mg/dL (0.0-0.3) H 01/26/19 06:58 Total Protein 5.4 g/dL (6.4-8.2) L 01/25/19 06:20 Albumin 2.3 g/dL (3.4-5.0) L 01/25/19 06:20 Lipase 68 U/L (73-393) L 01/24/19 21:50 Urine HCG, Qual Negative 01/25/19 08:25
[2019-01-26] MEDS: MAGNESIUM SULFATE 2 GM/50 ML BAG IVPB (11:18)
[2019-01-26] MEDS: Enoxaparin 40 MG/0.4 ML SYR SC (11:18)
--- NOTE | 2019-01-26 13:52 | PDOC.CMPRO ---
- If Service Date Differs Date of service: 01/26/19 Time of Service: 13:52 Care Management Progress Note S/O: Yenny remains acute admission, she continues with the NG tube and NPO. She remains on IV Tylenol, Torodol and Morphine for pain. Plan per report to clamp the NG tube to determine if she will tolerate. A: Yenny is a 48 year old female admitted with SBO with a recent history ostomy [place]22[place] [facility] [place] P: Yenny will return home when ready per MD; no anticipated services at this time. She will follow up with her PCP and plan of care as prescribed. Her Anselmo will transport via private vehicle when ready.
--- NOTE | 2019-01-26 14:01 | CMPROGNOTE_ITS ---
- If Service Date Differs Date of service: 01/26/19 Time of Service: 13:52 Care Management Progress Note S/O: Yenny remains acute admission, she continues with the NG tube and NPO. She remains on IV Tylenol, Torodol and Morphine for pain. Plan per report to clamp the NG tube to determine if she will tolerate. A: Yenny is a 48 year old female admitted with SBO with a recent [place] [facility] [place] P: Yenny will return home when ready per MD; no anticipated services at this time. She will follow up with her PCP and plan of care as prescribed. Her Anselmo will transport via private vehicle when ready.
[2019-01-26] MEDS: ACETAMINOPHEN 1,000 MG/100 ML BTL 400 MG IVPB (15:36)
[2019-01-26] MEDS: Normal Saline 1,000 ML 500 ML IV (16:39)
[2019-01-26] MEDS: Albuterol 2.5 MG/3 ML INH SOLN VIAL UPD (23:51)
[2019-01-27 00:15] VITALS: RESP 1
[2019-01-27 03:58] VITALS: BP 110/70; PULSE 107; RESP 16; TEMP 36.8; O2SAT 96
[2019-01-27 07:00] VITALS: BP 121/79; PULSE 113; RESP 16; TEMP 38.1; O2SAT 94
[2019-01-27] MEDS: Lactated Ringers 1,000 ML 125 ML IV (08:10)
[2019-01-27 08:11] VITALS: TEMP 38.1
[2019-01-27] MEDS: ACETAMINOPHEN 1,000 MG/100 ML BTL 400 MG IVPB (08:11)
[2019-01-27] MEDS: Pantoprazole 40 MG VIAL IVP (08:14)
[2019-01-27] MEDS: Normal Saline Flush 10 ML SYR IVP (08:14)
--- NOTE | 2019-01-27 09:03 | PGE_ITS ---
Date of Service Date of service: 01/27/19 Time of Service: 09:03 Assessment and Plan (1) Anemia: Current visit: Yes Status: Chronic IV iron (2) Ileus, postoperative: Current visit: Yes Status: Acute resolved (3) Post-operative state: Current visit: Yes Status: Acute -local wound care -slowly advance diet -Mg citrate for bowels -soft diet -walk -hoepfully d/c home later today Subjective Patient reports: feels better, flatus, no bowel movement and afebrile; denies nausea, vomiting and shortness of breath Interval history since last seen: Pt is doing well. no headaches. No CP or SOB. no productive cough. no dysuria. no leg pain or swelling. pt tolerating liquids and passing gas. She is hungry. try full liquids. needs to have bm Exam Const General: cooperative, healthy appearing, comfortable, no acute distress, well developed and well groomed Nutritional Appearance: average body habitus and well nourished Orientation: alert, awake and oriented x3 [facility] Head: normal to inspection, normocephalic and atraumatic Ears: hearing grossly normal bilaterally and external ears normal General nose exam: external nose normal Face and sinus: normal facial exam and sinuses nontender Mouth: oral mucosae normal, lip normal, tongue normal and moist mucous membranes Teeth and gingiva: dentition normal Eyes General: appearance normal, both eyes and all related structures Conjunctivae: conjunctivae normal Sclera: sclerae normal Pupils: PERRL Neck Neck: normal visual inspection and full ROM Chest Chest: normal inspection of the chest Resp Effort & Inspection: normal respiratory effort, able to speak in complete senten tino, no cough, no nasal flaring, not tachypneic and no use of accessory muscles Auscultation: clear to auscultation bilaterally, no rales, no rhonchi and no wheezes Cardio Jugular venous pressure: no JVD Rate: regular rate Rhythm: regular rhythm GI Inspection: normal to inspection, no edema and non-distended Palpation: soft, no masses, nontender and No ascites Auscultation: normal bowel sounds Other: good BS. incision is dressed was clean and pink yest. Skin General skin exam: no rashes or lesions noted Trauma: no lacerations or abrasions Neuro General: alert, oriented x3, oriented, gait normal, moves all extremities, no focal motor deficits and CN's II-XI intact bilaterally Cognition: normal cognition Speech: speech normal Gait: normal gait Motor: muscle tone normal throughout Extrem General: normal to inspection, full ROM and no clubbing, cyanosis or edema Psych Appearance: grossly normal and well kempt Mental Status: mental status grossly normal Speech and Movement: speech and movement normal Affect: normal affect Objective Objective Clinical Data: Vital Signs Temperature 38.1 C H 01/27/19 08:11 Temperature Source Tympanic 01/27/19 07:00 Pulse 113 H 01/27/19 07:00 Pulse Rhythm Regular 01/26/19 23:59 Respiratory Rate 16 01/27/19 07:00 Respiratory Effort 01/26/19 23:59 Respiratory Depth Normal 01/26/19 23:59 Respiratory Pattern Normal 01/26/19 23:59 Blood Pressure 121/79 01/27/19 07:00 Blood Pressure Mean 64 01/25/19 00:15 Blood Pressure Position Sitting 01/24/19 21:31 Pulse Oximetry 94 L 01/27/19 07:00 Oxygen Delivery Method Room Air 01/27/19 07:00 Oxygen Flow Rate 0 01/27/19 07:00 Pain Level 0 01/26/19 11:19 Comment 01/26/19 11:35 Intake & Output 01/26/19 01/26/19 01/27/19 11:59 23:59 11:59 Intake Total 2270 / 4370.0 2100.0 / 4370.0 1300 / 1300 Output Total 450 / 450 600 / 600 Balance 1820 / 3920.0 2100.0 / 3920.0 700 / 700 Intake: IV 2210 / 4310.0 2100.0 / 4310.0 1000 / 1000 Oral 60 / 60 300 / 300 Output: Gastric Drainage 150 / 150 Right Nare 150 / 150 Urine 300 / 300 600 / 600 Other: Urine Color Dark Patito Brown Urine Appearance Cloudy Urine Odor Normal Voiding Methods Toilet Toilet Laboratory Results WBC 7.69 k/cumm (4.4-10.8) 01/24/19 21:50 RBC 4.05 m/cumm (4.00-5.20) 01/24/19 21:50 Hgb 11.9 g/dL (12.0-15.5) L 01/24/19 21:50 Hct 35.3 % (36.0-46.0) L 01/24/19 21:50 MCV 87.2 fL (80-95) 01/24/19 21:50 MCH 29.4 pg (27.0-33.0) 01/24/19 21:50 MCHC 33.7 g/dL (32.0-36.0) 01/24/19 21:50 RDW 13.5 % (11.7-14.6) 01/24/19 21:50 Plt Count 203 x1000/uL (130-400) 01/25/19 06:20 MPV 10.4 fL (8.0-11.0) 01/24/19 21:50 Immature Gran % 0.1 01/24/19 21:50 Neutrophils % 88.2 01/24/19 21:50 Lymphocytes % 5.2 01/24/19 21:50 Monocytes % 5.2 01/24/19 21:50 Eosinophils % 1.0 01/24/19 21:50 Basophils % 0.3 01/24/19 21:50 Absolute Neutrophils 6.78 k/cumm (1.2-6.7) H 01/24/19 21:50 Absolute Lymphocytes 0.40 k/cumm (1.2-3.4) L 01/24/19 21:50 Absolute Monocytes 0.40 k/cumm (0.11-0.7) 01/24/19 21:50 Absolute Eosinophils 0.08 k/cumm (0.0-0.7) 01/24/19 21:50 Absolute Basophils 0.02 k/cumm (0.0-0.2) 01/24/19 21:50 PT 11.2 sec (9.3-11.0) H 01/24/19 21:50 INR 1.1 (0.9-1.1) 01/24/19 21:50 APTT 27.5 sec (21.0-31.4) 01/24/19 21:50 Sodium 137 mmol/L (136-145) 01/26/19 06:58 Potassium 3.8 mmol/L (3.5-5.1) 01/26/19 06:58 Chloride 104 mmol/L (98-107) 01/26/19 06:58 Carbon Dioxide 28.2 mmol/L (21.0-32.0) 01/26/19 06:58 Anion Gap 4.8 mmol/L (3-11) 01/26/19 06:58 BUN 10 mg/dL (7-18) 01/26/19 06:58 Creatinine 0.73 mg/dL (0.55-1.02) 01/26/19 06:58 Estimated GFR/1.73 m2 >= 60.00 (mL/min/1.73m2) 01/26/19 06:58 Glucose 120 mg/dL (70-100) H 01/26/19 06:58 Calcium 8.1 mg/dL (8.5-10.1) L 01/26/19 06:58 Magnesium 1.6 mg/dL (1.8-2.4) L 01/26/19 06:58 Iron 5 ug/dL (50-175) L 01/26/19 06:58 TIBC 136 ug/dL (250-450) L 01/26/19 06:58 Transferrin % Sat 4 % (15-50) L 01/26/19 06:58 Ferritin 223 ng/mL (8-388) 01/26/19 06:58 Total Bilirubin 0.8 mg/dL (0.2-1.0) 01/25/19 06:20 AST 18 U/L (15-37) 01/25/19 06:20 ALT 51 U/L (12-78) 01/25/19 06:20 Alkaline Phosphatase 78 U/L (46-116) 01/25/19 06:20 C-Reactive Protein > 25.00 mg/dL (0.0-0.3) H 01/26/19 06:58 Total Protein 5.4 g/dL (6.4-8.2) L 01/25/19 06:20 Albumin 2.3 g/dL (3.4-5.0) L 01/25/19 06:20 Lipase 68 U/L (73-393) L 01/24/19 21:50 Urine HCG, Qual Negative 01/25/19 08:25
--- NOTE | 2019-01-27 09:46 | CMPROGNOTE_ITS ---
- If Service Date Differs Date of service: 01/27/19 Time of Service: 09:45 Care Management Progress Note S/O: Yenny reports that she is feeling much better and is being discharged today. She is able to tolerate food and has no more pain. She expressed some concern about performing dressing changes and asked if she could have home health nursing for this. When told it was not likely because she is not home bound, she indicated that her aunt or her could assist as needed. A: Yenny is a 48 year old female admitted with SBO with a recent history ostomy reversal on 01/22/19 at [facility] [place]. P: Yenny will return home when ready per MD; no anticipated services at this time. She will follow up with her PCP and plan of care as prescribed. Her Anselmo will transport via private vehicle when ready.
[2019-01-27 10:55] VITALS: BP 109/59; PULSE 107; RESP 18; TEMP 36.8; O2SAT 94
[2019-01-27] MEDS: Enoxaparin 40 MG/0.4 ML SYR SC (11:20)
--- NOTE | 2019-01-27 15:09 | PDOC.CMDIS ---
- If Service Date Differs Date of service: 01/27/19 Time of Service: 15:09 LACE Index Scoring Tool - Questions: Length of Stay (in days): 2 Acuity (Admit via E.D.?): Yes E.D. Visits: 5 - Answers: Total Score: 9 Risk of Readmission: Low Risk Care Management Discharge Reason for Hospitalization: SBO-recurrent Discharge Plan: Yenny will return home with no services at this time. She will follow up with her PCP and plan of care as prescribed. Her Anselmo will transport via private vehicle. Patient/Family Education Needs: Discharge plan, dressing changes, limitations, follow up plan of care.
--- NOTE | 2019-01-28 14:01 | W.SURGCON ---
Date of service: 01/28/19 Time of Service: 14:01 Assessment and Plan (1) Anemia: Current visit: No Status: Chronic (2) Asthma: Current visit: No Status: Chronic (3) H/O resection of small bowel: Current visit: No Status: Resolved (4) Crohn's disease: Current visit: No Status: Chronic Qualifiers: Gastrointestinal tract location: small and large intestine Digestive disease complication type: unspecified complication Qualified Code(s): K50.819 - Crohn's disease of both small and large intestine with unspecified complications (5) Edema due to hypoalbuminemia: Current visit: Yes Status: Acute no sign of DVT/PE or phleibits. IV and blood draw sights show mild echymosis but are soft adn non tender. calves adn arms are soft and non tender. mild non pitting edema of L>R side. Think this is more secondary to pt lying on left side and IV fluid/low protein No signs of pneumonia/PE/DVT. no sign of recurrent ileus. cont local wound care of ostomy site. cont high protein /low fiber diet. reviewed food choices. ibuprofen for pain- this may also make LE swell. ICE cont ambulation/pulm toilet. F/u GI and Dr. Newell as scheduled. (6) Hypoalbuminemia due to protein-calorie malnutrition: Current visit: Yes Status: Acute History of Present Illness Narrative: Patient is a 48-year-old female well well-known to me. She has a history of Crohn's disease. She has been dealing with this since 1999. She recently underwent a cecal and terminal ileum and small bowel resection for 25 centimeters and had a primary anastomosis. This was in the face of chronic long-term steroids. She had a diverting ileostomy done. The she is currently off of all steroids and biologic/immunologic modulators. She had a ileostomy takedown on 424 at [facility] by Dr. Berto Solo. She was discharged on 426. She was at the pharmacy getting her prescription filled and developed nausea and vomiting. She was admitted to [facility] for postop ileus. This resolved in 48 hours. Did not appear to be any signs of recurrent Crohn's disease. She had no fever no white count no chest pain no shortness of breath no productive cough no thrush. She had no leg pain or swelling. She had no dysuria. She was having bowel movements without diarrhea by her discharge. Her ostomy site was clean dry and intact. She was able to tolerate soft diet. Today she developed swelling in her hands and feet in came into the ER for chest x-ray and abdominal x-ray. I did happen to see her in the hospital and I did have a chance to examine her. Again her complaints are swelling in her hands and feet. It is more pronounced in the left hand and left leg. She does admit that she does sleep on her left side. She has no pain in the left arm or left calf or thigh. She is been up walking around. She is tolerating soft liquid type foods. She has had multiple bowel movements. She said no fever or chills. She has no productive cough. She has no abdominal pain. She has had no blood in her stools. She has no abdominal pain and no redness or drainage from her ostomy site. Consults Consult date: 01/28/19 Review of Systems Review of Systems All systems reviewed & are unremarkable except as noted in HPI and below Constitutional Reports as per HPI, Reports system reviewed and no additional complaints, except as docu, Denies anorexia, Denies chills, Denies difficulty sleeping, Denies fatigue, Denies headache(s), Denies lethargy, Denies malaise, Denies poor appetite, Denies weakness, Denies weight gain and Denies weight loss Comments: swelling in hands and feet not painful. no discharge. no rash Eyes Reports as per HPI, Reports system reviewed and no additional complaints, except as docu and Denies change in vision ENT Reports system reviewed and no additional complaints, except as docu, Reports as per HPI, Denies change in voice, Denies dental pain, Denies dysphagia, Denies dizziness, Denies facial pain, Denies headache(s), Denies lip swelling, Denies odynophagia, Denies throat swelling and Denies tongue swelling Comments: no thrush Cardiovascular Reports as per HPI, Reports system reviewed and no additional complaints, except as docu, Denies chest pain, Denies chest pain with activity, Denies syncope, Denies leg edema and Denies dyspnea Respiratory Reports as per HPI, Reports system reviewed and no additional complaints, except as docu, Denies chest congestion, Denies cough, Denies pain with cough, Denies dyspnea and Denies wheezing Comments: former smoker Gastrointestinal Reports as per HPI, Reports system reviewed and no additional complaints, except as docu, Denies abdominal pain, Denies bloating, Denies change in bowel habits, Denies change in stool character, Denies constipation, Denies cramping, Denies dysphagia, Denies early satiety, Denies heartburn, Denies diarrhea, Denies nausea, Denies odynophagia and Denies vomiting Comments: + bm loose. pt did not receive any abx. will be loose for some time. Pt no longer has an ilealcecal value and may have dsome issues w/ urgency and mult BM per day. no blood. wt is actually up today. has been able to eat. no n/v. Genitourinary Comments: no pain/burning/incomplete emptying Musculoskeletal Reports system reviewed and no additional complaints, except as docu, Reports as per HPI, Denies abnormal gait, Denies arthralgias and Denies muscle weakness Comments: na calf or thigh pain mild no pitting edema mostly of L hand and LLE . no faocal defeiceits. no numbness or tingling. good peripheral pulses radial adn DP. no cyanosis. strenth 5/5 upper and lower Integumentary/Breasts Reports system reviewed and no additional complaints, except as docu, Reports as per HPI, Denies changing lesions, Denies new lesions and Denies jaundice Neurologic Reports system reviewed and no additional complaints, except as docu, Reports as per HPI, Denies abnormal speech, Denies abnormal gait, Denies dizziness, Denies syncope, Denies headache(s), Denies memory loss and Denies weakness Psychiatric Reports system reviewed and no additional complaints, except as docu, Reports as per HPI, Denies change in appetite and Denies memory loss Endocrine Denies fatigue, Denies polydipsia and Denies polyuria Hematologic/Lymphatic Reports system reviewed and no additional complaints, except as docu, Denies easy bleeding and Denies easy bruising Allergic/Immunologic Denies system reviewed and no additional complaints, except as docu, Reports as per HPI, Denies urticaria, Denies lip swelling, Denies throat swelling, Denies tongue swelling and Denies wheezing FOR[facility]LY [facility], [facility] Medical History Anemia (Chronic) Ileus, postoperative (Acute) Post-operative state (Acute) Asthma (Chronic 11/16/16) Tobacco use disorder (Chronic 11/16/16) Ovarian cyst, left (Chronic 11/19/17) Crohn's disease (Chronic 12/20/16) Small bowel obstruction (Resolved) Asthma Crohn's disease Tobacco use disorder Surgical History H/O resection of small bowel (Resolved 09/04/18) Status post reversal of ileostomy (Chronic 01/22/19) Colonoscopy w/ BX (Resolved 11/27/16) Family History Mother Neoplasm Father Substance abuse Neoplasm Sister No problems noted. Sister No problems noted. Brother No problems noted. Brother No problems noted. Social History Smoking/Tobacco Use Status: Former Tobacco Use Quit Date: 09/04/18 Alcohol Intake: former Drug use: Never Substance use type: does not use Adopted: No Caregiver/Support person: No Foster care: No Household members: spouse and children Number of Children: 1 current occupation: Cleaning houses Pets and animals: Yes Pets and animals: dog(s) What type of physical activity do you participate in: none Do you feel safe at home: Yes Do you feel safe in your relationship?: Yes Exam Const General: cooperative, healthy appearing, comfortable, no acute distress, well developed and well groomed Nutritional Appearance: average body habitus and well nourished Orientation: alert, awake and oriented x3 HENMT Head: normal to inspection, normocephalic and atraumatic Ears: hearing grossly normal bilaterally and external ears normal General nose exam: external nose normal Face and sinus: normal facial exam and sinuses nontender Mouth: oral mucosae normal, lip normal, tongue normal and moist mucous membranes Teeth and gingiva: dentition normal Eyes General: appearance normal, both eyes and all related structures Conjunctivae: conjunctivae normal Sclera: sclerae normal Pupils: PERRL Neck Neck: normal visual inspection and full ROM Chest Chest: normal inspection of the chest Resp Effort & Inspection: normal respiratory effort, able to speak in complete sentences, no cough, no nasal flaring, not tachypneic and no use of accessory muscles Auscultation: clear to auscultation bilaterally, no rales, no rhonchi and no wheezes Cardio Jugular venous pressure: no JVD Rate: regular rate Rhythm: regular rhythm GI Inspection: normal to inspection, no edema and non-distended Palpation: soft, no masses, nontender and No ascites Auscultation: normal bowel sounds Other: good BS. wound/ostomy site is c/d/i. no R/D/S. good bs. none tender. Abdomen image: 1. 2. Skin General skin exam: no rashes or lesions noted Trauma: no lacerations or abrasions Other: no rashes Neuro General: alert, oriented x3, oriented, gait normal, moves all extremities, no focal motor deficits and CN's II-XI intact bilaterally Cognition: normal cognition Speech: speech normal Gait: normal gait Motor: muscle tone normal throughout Extrem General: normal to inspection, full ROM and no clubbing, cyanosis or edema Other: mild non pitting edema of LLE and L hand. milder on R side. If was in R antecub. no thrombosis or phleibits. no pain. no sign of DVT. no pain w/ palpation or walking. Pt states she does sleep on L side. Her hgb and protein levels are low. I think this is just some dependent edema for IV fluid in will resolve in the next 48-72 hrs. Psych Appearance: grossly normal and well kempt Mental Status: mental status grossly normal Speech and Movement: speech and movement normal Affect: normal affect Results Last Vital Signs Temp 36.8 C 01/27/19 10:55 Pulse 107 H 01/27/19 10:55 Resp 18 01/27/19 10:55 BP 109/59 L 01/27/19 10:55 Pulse Ox 94 L 01/27/19 10:55 Labs : 01/25/19 06:20 01/26/19 06:58
== END 2019-01-27 14:38 | disposition home or self-care (01) | DRG 389 ==
LOC: ER 23:42 → MS 01-25 00:37
PROVIDERS: Admitting Provider Surgery; Emergency Provider Emergency Medicine; PCP Student in an Organized Health Care Education/Training Program; Visit Provider Surgery
DX: K56.7 Ileus, unspecified (principal); K91.89 Other postprocedural complications and disorders of digestive system; K50.819 Crohn's disease of both small and large intestine with unspecified complications; R11.2 Nausea with vomiting, unspecified; R10.32 Left lower quadrant pain; R60.0 Localized edema; R14.0 Abdominal distension (gaseous); D53.9 Nutritional anemia, unspecified; E88.09 Other disorders of plasma-protein metabolism, not elsewhere classified; J45.909 Unspecified asthma, uncomplicated; Z87.891 Personal history of nicotine dependence; Z90.49 Acquired absence of other specified parts of digestive tract; Z79.52 Long term (current) use of systemic steroids
CPT/HCPCS: 36415; 71045; 80048; 80053; 83690; 96361; 96374; 96375; 96376; 99223; 99232; 99252; 99285; J1650; 74019; 81025; 82728; 83540; 83550; 83735; 85025; 85049; 85610; 85730; 86140; 99284; J0131; J1756; J1885; J2060; J2405; J3010; J3490; J7613

== ENCOUNTER 2019-01-28 10:37 | Outpatient (CLI) | payer BC, SELFPAY ==
[2019-01-28 11:09] LABS: HCT 33.6 % (36.0-46.0); HGB 11.4 g/dL (12.0-15.5); Mean Corp. HGB Concentration 33.9 g/dL (32.0-36.0); Mean Corpuscular Hemoglobin 29.1 pg (27.0-33.0); Mean Corpuscular Volume 85.7 fL (80-95); Mean Platelet Volume 10.2 fL (8.0-11.0); Platelet Count 256 x1000/uL (130-400); RBC 3.92 m/cumm (4.00-5.20); RBC Distribution Width 13.4 % (11.7-14.6); White Blood Cell Count 8.04 k/cumm (4.4-10.8)
--- NOTE | 2019-01-28 11:15 | DI.RAD_ITS ---
SYMPTOMS/DIAGNOSIS: DISTENTION, EDEMA, LIQUID STOOL, H/O RESECTION, POSTOPERATIVE, ABD PAIN, Z90.49, Z98.890, R14.0, R19.7, R10.9 PA AND LATERAL CHEST: Comparison examinations 01/25 and 01/26/19. The heart size and pulmonary vasculature are within normal limits. Since the most recent examinations, there are now small bilateral pleural effusions. There are infiltrates seen in the lower lobes bilaterally. These infiltrates may represent atelectasis or pneumonia. No pneumothorax is identified. There is again seen free air beneath the hemidiaphragms which appears decreased compared to the prior examination. The patient is status post abdominal surgery. The nasogastric tube has been removed. IMPRESSION: 1. Interval development of small bilateral pleural effusions. 2. Small bilateral basilar infiltrates which may represent atelectasis or pneumonia. 3. Interval decrease in size of the pneumoperitoneum. FLAT AND UPRIGHT ABDOMEN: Comparison is 01/26/19. There is again seen free air beneath the hemidiaphragms. It appears somewhat decreased in size compared to the prior examination. The patient is status post abdominal surgery which likely accounts for the free air. The nasogastric tube has been removed. There are dilated loops of small bowel in the central abdomen with air fluid levels. Air is noted within both colon and small bowel. This may represent an ileus. A small bowel obstruction can not be entirely excluded. No organomegaly is seen. The bones and joints are intact. IMPRESSION: 1. Persistent tiny pneumoperitoneum consistent with the patient's recent abdominal surgery. 2. Mildly distended loops of central small bowel with air fluid levels. This may represent an ileus. There has been no progression in the appearance of the bowel compared to 01/26/19.
[2019-01-28 13:32] LABS: ALT 24 U/L (12-78); AST 19 U/L (15-37); Albumin 2.1 g/dL (3.4-5.0); Alkaline Phosphatase 116 U/L (46-116); Anion Gap 5.9 mmol/L (3-11); BUN 10 mg/dL (7-18); Bilirubin, Total 0.4 mg/dL (0.2-1.0); CO2 30.1 mmol/L (21.0-32.0); CREATININE 0.69 mg/dL (0.55-1.02); Calcium 7.9 mg/dL (8.5-10.1); Chloride 101 mmol/L (98-107); Glucose 112 mg/dL (70-100); Magnesium 1.7 mg/dL (1.8-2.4); Potassium 3.6 mmol/L (3.5-5.1); Sodium 137 mmol/L (136-145); Total Protein 5.2 g/dL (6.4-8.2)
== END 2019-01-28 10:57 ==
PROVIDERS: PCP Student in an Organized Health Care Education/Training Program; Visit Provider Nurse Practitioner
DX: R14.0 Abdominal distension (gaseous) (principal); R19.7 Diarrhea, unspecified; R10.9 Unspecified abdominal pain; J90 Pleural effusion, not elsewhere classified; R91.8 Other nonspecific abnormal finding of lung field; K63.89 Other specified diseases of intestine; K66.8 Other specified disorders of peritoneum; Z90.49 Acquired absence of other specified parts of digestive tract; Z98.890 Other specified postprocedural states; E83.42 Hypomagnesemia; R60.9 Edema, unspecified; D64.9 Anemia, unspecified
CPT/HCPCS: 36415; 80053; 85027; 71046; 74019; 83735

== ENCOUNTER 2019-02-06 08:15 | Outpatient (CLI) | payer BC, SELFPAY ==
--- NOTE | 2019-02-06 13:00 | DI.RAD_ITS ---
SYMPTOMS/DIAGNOSIS: CROHN'S WITH OBSTRUCTION, K50.912 ABDOMEN: Three views were obtained. Bowel gas pattern is within normal limits. No gross free intraperitoneal air identified on the upright view. CONCLUSION: No evidence of acute disease.
== END 2019-02-06 08:35 ==
PROVIDERS: PCP Student in an Organized Health Care Education/Training Program; Visit Provider Internal Medicine Gastroenterology
DX: K50.912 Crohn's disease, unspecified, with intestinal obstruction (principal)
CPT/HCPCS: 74019

== ENCOUNTER 2019-02-13 12:45 | Outpatient (CLI) | payer BC, SELFPAY ==
[2019-02-13 13:05] LABS: HCT 37.1 % (36.0-46.0); HGB 11.8 g/dL (12.0-15.5); Mean Corp. HGB Concentration 31.8 g/dL (32.0-36.0); Mean Corpuscular Hemoglobin 28.6 pg (27.0-33.0); Mean Platelet Volume 8.8 fL (8.0-11.0); RBC 4.12 m/cumm (4.00-5.20); RBC Distribution Width 13.6 % (11.7-14.6); White Blood Cell Count 10.02 k/cumm (4.4-10.8)
[2019-02-13 13:46] LABS: Platelet Count 811 x1000/uL (130-400)
[2019-02-13 14:22] LABS: Iron 24 ug/dL (50-175); Total Iron Binding Capacity 321 ug/dL (250-450); Transferrin Sat 7 % (15-50)
[2019-02-13 14:35] LABS: Ferritin 234 ng/mL (8-388)
[2019-02-13 16:38] LABS: ALT 17 U/L (12-78); AST 12 U/L (15-37); Albumin 3.2 g/dL (3.4-5.0); Alkaline Phosphatase 90 U/L (46-116); Anion Gap 11.7 mmol/L (3-11); BUN 17 mg/dL (7-18); Bilirubin, Total 0.2 mg/dL (0.2-1.0); CO2 28.3 mmol/L (21.0-32.0); CREATININE 0.83 mg/dL (0.55-1.02); Calcium 9.6 mg/dL (8.5-10.1); Chloride 99 mmol/L (98-107); Glucose 95 mg/dL (70-100); Potassium 4.5 mmol/L (3.5-5.1); Sodium 139 mmol/L (136-145); Total Protein 7.8 g/dL (6.4-8.2)
[2019-02-14 11:06] LABS: Transferrin 241 mg/dL (201-352)
[2019-02-20 11:00] LABS: HCT 37.3 % (36.0-46.0); Mean Corp. HGB Concentration 32.2 g/dL (32.0-36.0); Mean Corpuscular Hemoglobin 28.4 pg (27.0-33.0); Mean Corpuscular Volume 88.4 fL (80-95); Mean Platelet Volume 9.5 fL (8.0-11.0); Platelet Count 387 x1000/uL (130-400); RBC 4.22 m/cumm (4.00-5.20); RBC Distribution Width 13.5 % (11.7-14.6); White Blood Cell Count 9.83 k/cumm (4.4-10.8)
[2019-02-20 11:52] LABS: Iron 21 ug/dL (50-175); Total Iron Binding Capacity 288 ug/dL (250-450); Transferrin Sat 7 % (15-50)
[2019-02-20 11:58] LABS: ALT 15 U/L (12-78); AST 11 U/L (15-37); Alkaline Phosphatase 85 U/L (46-116); Anion Gap 11.1 mmol/L (3-11); BUN 15 mg/dL (7-18); Bilirubin, Total 0.3 mg/dL (0.2-1.0); CO2 28.9 mmol/L (21.0-32.0); CREATININE 0.67 mg/dL (0.55-1.02); Chloride 101 mmol/L (98-107); Glucose 86 mg/dL (70-100); Sodium 141 mmol/L (136-145); Total Protein 7.5 g/dL (6.4-8.2)
[2019-02-20 12:05] LABS: Ferritin 164 ng/mL (8-388)
== END 2019-02-13 13:05 ==
PROVIDERS: PCP Student in an Organized Health Care Education/Training Program; Visit Provider Student in an Organized Health Care Education/Training Program
DX: D64.9 Anemia, unspecified (principal); Z90.49 Acquired absence of other specified parts of digestive tract; K56.7 Ileus, unspecified; K91.89 Other postprocedural complications and disorders of digestive system; E46 Unspecified protein-calorie malnutrition; Z98.890 Other specified postprocedural states
CPT/HCPCS: 36415; 80053; 85027; 82728; 83540; 83550; 84466

== ENCOUNTER 2019-02-20 10:35 | Outpatient (CLI) | payer BC, SELFPAY | END 2019-02-20 10:55 | PROVIDERS: PCP Student in an Organized Health Care Education/Training Program; Visit Provider Student in an Organized Health Care Education/Training Program | DX: D64.9 Anemia, unspecified (principal); K56.7 Ileus, unspecified; K91.89 Other postprocedural complications and disorders of digestive system; Z90.89 Acquired absence of other organs | CPT/HCPCS: 36415; 80053; 85027; 82728; 83540; 83550 ==

== ENCOUNTER 2019-03-12 11:27 | Outpatient (CLI) | payer BC, SELFPAY ==
[2019-03-12 12:02] LABS: HCT 38.6 % (36.0-46.0); HGB 12.6 g/dL (12.0-15.5); Mean Corp. HGB Concentration 32.6 g/dL (32.0-36.0); Mean Corpuscular Hemoglobin 28.2 pg (27.0-33.0); Mean Corpuscular Volume 86.4 fL (80-95); Mean Platelet Volume 9.9 fL (8.0-11.0); Platelet Count 414 x1000/uL (130-400); RBC 4.47 m/cumm (4.00-5.20); RBC Distribution Width 13.9 % (11.7-14.6); White Blood Cell Count 9.43 k/cumm (4.4-10.8)
[2019-03-12 13:11] LABS: Iron 55 ug/dL (50-175); Total Iron Binding Capacity 292 ug/dL (250-450); Transferrin Sat 19 % (15-50)
[2019-03-12 13:25] LABS: Ferritin 74 ng/mL (8-388)
== END 2019-03-12 11:47 ==
PROVIDERS: PCP Student in an Organized Health Care Education/Training Program; Visit Provider Student in an Organized Health Care Education/Training Program
DX: D64.9 Anemia, unspecified (principal); Z90.49 Acquired absence of other specified parts of digestive tract; Z98.890 Other specified postprocedural states
CPT/HCPCS: 36415; 85027; 82728; 83540; 83550

== ENCOUNTER 2019-03-27 01:28 | Outpatient (RCR) | payer BC, SELFPAY ==
[2019-03-27] VITALS (9 sets, daily range): BP systolic 104–128; BP diastolic 62–85; PULSE 68–82; RESP 16–18; TEMP 36–36.8; O2SAT 99–100
[2019-03-27] MEDS: Normal Saline Flush 10 ML SYR IVP (08:45)
[2019-03-27] MEDS: inFLIXimab 300 MG in Normal Saline 250 ML 10 MG IVPB (09:35)
== END 2019-03-30 23:59 | disposition home or self-care (01) ==
LOC: INF 01:28
PROVIDERS: PCP Student in an Organized Health Care Education/Training Program; Visit Provider Internal Medicine
DX: K50.90 Crohn's disease, unspecified, without complications (principal)
CPT/HCPCS: 96365; 96366; J1745

== ENCOUNTER 2019-04-09 01:17 | Outpatient (RCR) | payer BC, SELFPAY ==
[2019-04-09] MEDS: inFLIXimab 300 MG in Normal Saline 250 ML 125 MG IVPB (09:10)
[2019-04-09] MEDS: Normal Saline Flush 10 ML SYR IVP (09:11)
[2019-04-09 09:15] VITALS: BP 104/68; PULSE 67; RESP 18; TEMP 36.4; O2SAT 97
[2019-04-09 09:37] VITALS: BP 102/72; PULSE 80; RESP 18; TEMP 36.6; O2SAT 98
[2019-04-09 09:52] VITALS: BP 106/70; PULSE 69; RESP 18; TEMP 36.3; O2SAT 99
[2019-04-09 10:20] VITALS: BP 114/63; PULSE 65; RESP 18; TEMP 36.4; O2SAT 100
[2019-04-09 10:40] VITALS: BP 107/67; PULSE 76; RESP 19; TEMP 36.4; O2SAT 98
[2019-04-09 11:01] VITALS: BP 105/67; PULSE 71; RESP 18; TEMP 36.4; O2SAT 99
== END 2019-04-30 23:59 | disposition home or self-care (01) ==
LOC: INF 01:17
PROVIDERS: PCP Student in an Organized Health Care Education/Training Program; Visit Provider Internal Medicine
DX: K50.90 Crohn's disease, unspecified, without complications (principal)
CPT/HCPCS: 96365; 96366; J1745

== ENCOUNTER 2019-04-15 09:29 | Outpatient (CLI) | payer BC, SELFPAY ==
[2019-04-15 09:54] LABS: Abs Immature Grans 0.01 k/cumm (0.0-0.09); Absolute Basophil Count 0.12 k/cumm (0.0-0.2); Absolute Eosinophil Count 0.12 k/cumm (0.0-0.7); Absolute Lymphocyte Count 1.77 k/cumm (1.2-3.4); Absolute Monocyte Count 0.31 k/cumm (0.11-0.7); Absolute Neutrophil Count 2.62 k/cumm (1.2-6.7); Basophils % 2.4; Eosinophils % 2.4; HCT 38.5 % (36.0-46.0); HGB 12.9 g/dL (12.0-15.5); Immature Grans % 0.2; Lymphocytes % 35.8; Mean Corp. HGB Concentration 33.5 g/dL (32.0-36.0); Mean Corpuscular Hemoglobin 28.7 pg (27.0-33.0); Mean Corpuscular Volume 85.6 fL (80-95); Monocytes % 6.3; Neutrophils % 52.9; Platelet Count 271 x1000/uL (130-400); RBC Distribution Width 14.3 % (11.7-14.6); White Blood Cell Count 4.95 k/cumm (4.4-10.8)
== END 2019-04-15 09:49 ==
PROVIDERS: PCP Student in an Organized Health Care Education/Training Program; Visit Provider Internal Medicine Gastroenterology
DX: K50.912 Crohn's disease, unspecified, with intestinal obstruction (principal)
CPT/HCPCS: 36415; 85025

== ENCOUNTER 2019-05-08 02:05 | Outpatient (RCR) | payer BC, SELFPAY ==
[2019-05-08 08:29] VITALS: BP 118/77; PULSE 80; RESP 18; TEMP 36.2; O2SAT 98
[2019-05-08] MEDS: inFLIXimab 300 MG in Normal Saline 250 ML 125 MG IVPB (09:04)
[2019-05-08] MEDS: Normal Saline Flush 10 ML SYR IVP (09:05)
[2019-05-08 09:13] VITALS: BP 113/70; PULSE 68; RESP 18; TEMP 36.5; O2SAT 100
[2019-05-08 09:31] VITALS: BP 103/66; PULSE 72; RESP 18; TEMP 36; O2SAT 100
[2019-05-08 09:50] VITALS: BP 103/64; PULSE 73; RESP 18; TEMP 36; O2SAT 100
[2019-05-08 10:05] VITALS: BP 102/65; PULSE 69; RESP 18; TEMP 36.5; O2SAT 99
[2019-05-08 10:20] VITALS: BP 105/60; PULSE 69; RESP 18; TEMP 36.5; O2SAT 98
== END 2019-05-31 23:59 | disposition home or self-care (01) ==
LOC: INF 02:05
PROVIDERS: PCP Student in an Organized Health Care Education/Training Program; Visit Provider Internal Medicine
DX: K50.90 Crohn's disease, unspecified, without complications (principal)
CPT/HCPCS: 96365; 96366; J1745

== ENCOUNTER 2019-06-16 09:53 | Outpatient (CLI) | payer BC, SELFPAY ==
[2019-06-18 18:40] LABS: Infliximab 20 mcg/mL (<=5.0)
== END 2019-06-16 10:13 ==
PROVIDERS: PCP Student in an Organized Health Care Education/Training Program; Visit Provider Internal Medicine Gastroenterology
DX: K50.912 Crohn's disease, unspecified, with intestinal obstruction (principal); Z51.81 Encounter for therapeutic drug level monitoring
CPT/HCPCS: 36415; 82397

== ENCOUNTER 2019-07-02 01:38 | Outpatient (RCR) | payer BC, SELFPAY ==
[2019-07-02] VITALS (7 sets, daily range): BP systolic 97–135; BP diastolic 63–75; PULSE 63–77; RESP 18–19; TEMP 36.5–36.9; O2SAT 93–100
[2019-07-02] MEDS: inFLIXimab 300 MG in Normal Saline 250 ML 125 MG IVPB (09:13)
[2019-07-02] MEDS: Normal Saline Flush 10 ML SYR IVP (09:14)
== END 2019-07-31 23:59 | disposition home or self-care (01) ==
LOC: INF 01:38
PROVIDERS: PCP Student in an Organized Health Care Education/Training Program; Visit Provider Internal Medicine
DX: K50.90 Crohn's disease, unspecified, without complications (principal)
CPT/HCPCS: 96365; 96366; J1745

== ENCOUNTER 2019-08-18 11:22 | Outpatient (CLI) | payer BC, SELFPAY ==
[2019-08-20 23:57] LABS: Infliximab 12 mcg/mL (<=5.0)
== END 2019-08-18 11:42 ==
PROVIDERS: PCP Student in an Organized Health Care Education/Training Program; Visit Provider Internal Medicine Gastroenterology
DX: K50.90 Crohn's disease, unspecified, without complications (principal); Z51.81 Encounter for therapeutic drug level monitoring
CPT/HCPCS: 36415; 82397

== ENCOUNTER 2019-08-25 03:01 | Outpatient (RCR) | payer BC, SELFPAY ==
[2019-08-25] MEDS: inFLIXimab 300 MG in Normal Saline 250 ML 125 MG IVPB (08:51)
[2019-08-25] MEDS: Normal Saline Flush 10 ML SYR IVP (08:52)
[2019-08-25 08:53] VITALS: BP 113/66; PULSE 73; RESP 18; TEMP 37.1; O2SAT 97
[2019-08-25 09:08] VITALS: BP 103/69; PULSE 80; RESP 19; TEMP 37; O2SAT 97
[2019-08-25 09:23] VITALS: BP 115/73; PULSE 77; RESP 18; TEMP 36.8; O2SAT 97
[2019-08-25 09:38] VITALS: BP 106/66; PULSE 77; RESP 19; TEMP 37; O2SAT 99
[2019-08-25 10:08] VITALS: BP 106/66; PULSE 74; RESP 19; TEMP 37; O2SAT 99
[2019-08-25 10:38] VITALS: BP 108/64; PULSE 71; RESP 18; TEMP 36.8; O2SAT 97
[2019-09-03 16:49] LABS: Infliximab 9.1 mcg/mL (<=5.0)
== END 2019-08-30 23:59 | disposition home or self-care (01) ==
LOC: INF 03:01
PROVIDERS: PCP Student in an Organized Health Care Education/Training Program; Visit Provider Internal Medicine
DX: K50.90 Crohn's disease, unspecified, without complications (principal)
CPT/HCPCS: 36415; 82397; 96365; 96366; J1745

== ENCOUNTER 2019-09-19 10:17 | Outpatient (CLI) | payer BC, SELFPAY ==
[2019-09-19 11:06] LABS: Abs Immature Grans 0.01 k/cumm (0.0-0.09); Absolute Basophil Count 0.05 k/cumm (0.0-0.2); Absolute Eosinophil Count 0.15 k/cumm (0.0-0.7); Absolute Lymphocyte Count 1.63 k/cumm (1.2-3.4); Absolute Neutrophil Count 3.82 k/cumm (1.2-6.7); Basophils % 0.8; Eosinophils % 2.5; HCT 39.7 % (36.0-46.0); HGB 13.6 g/dL (12.0-15.5); Immature Grans % 0.2; Lymphocytes % 26.9; Mean Corp. HGB Concentration 34.3 g/dL (32.0-36.0); Mean Corpuscular Hemoglobin 29.9 pg (27.0-33.0); Mean Corpuscular Volume 87.3 fL (80-95); Mean Platelet Volume 10.2 fL (8.0-11.0); Monocytes % 6.6; Platelet Count 256 x1000/uL (130-400); RBC 4.55 m/cumm (4.00-5.20); RBC Distribution Width 12.7 % (11.7-14.6); White Blood Cell Count 6.06 k/cumm (4.4-10.8)
[2019-09-22 05:12] LABS: Vitamin D 25 Total 35.7 ng/ml (30-100)
[2019-09-25 02:03] LABS: Infliximab 25 mcg/mL (<=5.0)
== END 2019-09-19 10:37 ==
PROVIDERS: PCP Student in an Organized Health Care Education/Training Program; Visit Provider Internal Medicine Gastroenterology
DX: K50.912 Crohn's disease, unspecified, with intestinal obstruction (principal); R79.9 Abnormal finding of blood chemistry, unspecified; Z51.81 Encounter for therapeutic drug level monitoring; Z79.899 Other long term (current) drug therapy
CPT/HCPCS: 36415; 82306; 82397; 85025

== ENCOUNTER 2019-10-21 01:18 | Outpatient (RCR) | payer BC, SELFPAY ==
[2019-10-21] VITALS (7 sets, daily range): BP systolic 107–134; BP diastolic 58–79; PULSE 64–82; RESP 18–19; TEMP 36.6–36.7; O2SAT 97–100
[2019-10-21 09:03] LABS: Abs Immature Grans 0.01 k/cumm (0.0-0.09); Absolute Basophil Count 0.05 k/cumm (0.0-0.2); Absolute Eosinophil Count 0.12 k/cumm (0.0-0.7); Absolute Lymphocyte Count 1.45 k/cumm (1.2-3.4); Absolute Monocyte Count 0.26 k/cumm (0.11-0.7); Absolute Neutrophil Count 2.45 k/cumm (1.2-6.7); Basophils % 1.2; Eosinophils % 2.8; HCT 38.4 % (36.0-46.0); HGB 13.1 g/dL (12.0-15.5); Immature Grans % 0.2 %; Lymphocytes % 33.4; Mean Corp. HGB Concentration 34.1 g/dL (32.0-36.0); Mean Corpuscular Hemoglobin 29.8 pg (27.0-33.0); Mean Corpuscular Volume 87.3 fL (80-95); Mean Platelet Volume 10.4 fL (8.0-11.0); Neutrophils % 56.4; Platelet Count 236 x1000/uL (130-400); RBC Distribution Width 12.9 % (11.7-14.6); White Blood Cell Count 4.34 k/cumm (4.4-10.8)
[2019-10-21] MEDS: Normal Saline Flush 10 ML SYR IVP (09:06)
[2019-10-26 17:09] LABS: Infliximab 6.9 mcg/mL (<=5.0)
== END 2019-10-31 23:59 | disposition home or self-care (01) ==
LOC: INF 01:18
PROVIDERS: Nurse Practitioner Family; PCP Student in an Organized Health Care Education/Training Program; Visit Provider Internal Medicine
DX: K50.90 Crohn's disease, unspecified, without complications (principal); Z51.81 Encounter for therapeutic drug level monitoring
CPT/HCPCS: 36415; 82397; 96365; 96366; 96413; 96415; 85025; J1745

== ENCOUNTER 2019-11-25 10:20 | Outpatient (CLI) | payer BC, SELFPAY ==
[2019-11-25 11:45] LABS: Abs Immature Grans 0.01 k/cumm (0.0-0.09); Absolute Basophil Count 0.04 k/cumm (0.0-0.2); Absolute Eosinophil Count 0.13 k/cumm (0.0-0.7); Absolute Lymphocyte Count 1.86 k/cumm (1.2-3.4); Absolute Monocyte Count 0.37 k/cumm (0.11-0.7); Absolute Neutrophil Count 3.53 k/cumm (1.2-6.7); Basophils % 0.7; Eosinophils % 2.2; HCT 38.6 % (36.0-46.0); HGB 13.4 g/dL (12.0-15.5); Immature Grans % 0.2 %; Lymphocytes % 31.3; Mean Corp. HGB Concentration 34.7 g/dL (32.0-36.0); Mean Corpuscular Hemoglobin 30.2 pg (27.0-33.0); Mean Corpuscular Volume 87.1 fL (80-95); Mean Platelet Volume 10.1 fL (8.0-11.0); Monocytes % 6.2; Neutrophils % 59.4; Platelet Count 237 x1000/uL (130-400); RBC 4.43 m/cumm (4.00-5.20); RBC Distribution Width 12.9 % (11.7-14.6); White Blood Cell Count 5.94 k/cumm (4.4-10.8)
== END 2019-11-25 10:40 ==
PROVIDERS: PCP Student in an Organized Health Care Education/Training Program; Visit Provider Internal Medicine Gastroenterology
DX: K50.912 Crohn's disease, unspecified, with intestinal obstruction (principal)
CPT/HCPCS: 36415; 85025

== ENCOUNTER 2019-12-02 11:29 | Outpatient (REF) | payer BC, SELFPAY ==
[2019-12-06 01:27] LABS: Lactoferrin, Qt, Stool <30.0 mcg/mL
== END 2019-12-02 11:49 ==
LOC: LBN 11:29
PROVIDERS: PCP Nurse Practitioner Family; Visit Provider Internal Medicine Gastroenterology
DX: K50.912 Crohn's disease, unspecified, with intestinal obstruction (principal)
CPT/HCPCS: 83631

== ENCOUNTER 2019-12-16 02:08 | Outpatient (RCR) | payer BC, SELFPAY ==
[2019-12-16] MEDS: Normal Saline Flush 10 ML SYR IVP (08:52)
[2019-12-16 09:20] VITALS: BP 120/76; PULSE 78; RESP 18; TEMP 36.4
[2019-12-16 09:40] VITALS: BP 105/69; PULSE 70; RESP 16; TEMP 37; O2SAT 97
[2019-12-16 09:55] VITALS: BP 127/63; PULSE 78; RESP 16; TEMP 37; O2SAT 98
[2019-12-16 10:15] VITALS: BP 126/69; PULSE 73; RESP 18; TEMP 36.9; O2SAT 98
[2019-12-16 10:45] VITALS: BP 114/63; PULSE 75; RESP 18; TEMP 36.4; O2SAT 97
== END 2019-12-30 23:59 | disposition home or self-care (01) ==
LOC: INF 02:08
PROVIDERS: PCP Nurse Practitioner Family; Visit Provider Internal Medicine
DX: K50.90 Crohn's disease, unspecified, without complications (principal)
CPT/HCPCS: 96365; 96366; 96413; 96415; J1745

== ENCOUNTER 2019-12-29 08:00 | Outpatient (CLI) | payer BC, SELFPAY ==
[2019-12-29 12:51] LABS: Abs Immature Grans 0.02 k/cumm (0.0-0.09); Absolute Basophil Count 0.04 k/cumm (0.0-0.2); Absolute Eosinophil Count 0.18 k/cumm (0.0-0.7); Absolute Lymphocyte Count 2.51 k/cumm (1.2-3.4); Absolute Monocyte Count 0.44 k/cumm (0.11-0.7); Absolute Neutrophil Count 4.09 k/cumm (1.2-6.7); Basophils % 0.5; Eosinophils % 2.5; HGB 13.9 g/dL (12.0-15.5); Immature Grans % 0.3 %; Lymphocytes % 34.5; Mean Corp. HGB Concentration 34.8 g/dL (32.0-36.0); Mean Corpuscular Hemoglobin 30.7 pg (27.0-33.0); Mean Corpuscular Volume 88.3 fL (80-95); Mean Platelet Volume 10.5 fL (8.0-11.0); Neutrophils % 56.2; Platelet Count 255 x1000/uL (130-400); RBC 4.53 m/cumm (4.00-5.20); RBC Distribution Width 13.2 % (11.7-14.6); White Blood Cell Count 7.28 k/cumm (4.4-10.8)
== END 2019-12-29 08:20 ==
PROVIDERS: PCP Nurse Practitioner Family; Visit Provider Internal Medicine Gastroenterology
DX: K50.912 Crohn's disease, unspecified, with intestinal obstruction (principal)
CPT/HCPCS: 36415; 85025

== ENCOUNTER 2020-01-29 01:16 | Outpatient (CLI) | payer BC, SELFPAY ==
[2020-01-29 17:28] LABS: Abs Immature Grans 0.01 k/cumm (0.0-0.09); Absolute Basophil Count 0.04 k/cumm (0.0-0.2); Absolute Eosinophil Count 0.28 k/cumm (0.0-0.7); Absolute Lymphocyte Count 2.57 k/cumm (1.2-3.4); Absolute Neutrophil Count 2.33 k/cumm (1.2-6.7); Basophils % 0.7; HCT 37.3 % (36.0-46.0); HGB 12.8 g/dL (12.0-15.5); Immature Grans % 0.2 %; Lymphocytes % 45.6; Mean Corp. HGB Concentration 34.3 g/dL (32.0-36.0); Mean Corpuscular Hemoglobin 30.5 pg (27.0-33.0); Mean Platelet Volume 10.4 fL (8.0-11.0); Monocytes % 7.1; Neutrophils % 41.4; Platelet Count 236 x1000/uL (130-400); RBC 4.19 m/cumm (4.00-5.20); RBC Distribution Width 12.6 % (11.7-14.6); White Blood Cell Count 5.63 k/cumm (4.4-10.8)
== END 2020-01-29 01:36 ==
PROVIDERS: PCP Nurse Practitioner Family; Visit Provider Internal Medicine Gastroenterology
DX: K50.912 Crohn's disease, unspecified, with intestinal obstruction (principal)
CPT/HCPCS: 36415; 85025

== ENCOUNTER 2020-02-10 00:56 | Outpatient (RCR) | payer BC, SELFPAY ==
[2020-02-10] VITALS (7 sets, daily range): BP systolic 104–129; BP diastolic 63–80; PULSE 70–82; RESP 18–19; TEMP 36–36.9; O2SAT 95–99
[2020-02-10] MEDS: Normal Saline Flush 10 ML SYR IVP ×2 (08:07→09:36)
[2020-02-16 23:32] LABS: Infliximab 13 mcg/mL (<=5.0)
== END 2020-02-29 23:59 | disposition home or self-care (01) ==
LOC: INF 00:56
PROVIDERS: PCP Nurse Practitioner Family; Visit Provider Internal Medicine
DX: K50.912 Crohn's disease, unspecified, with intestinal obstruction (principal)
CPT/HCPCS: 36415; 82397; 96365; 96366; 96413; 96415; J1745

== ENCOUNTER 2020-03-16 12:50 | Outpatient (CLI) | payer BC, SELFPAY ==
[2020-03-16 13:45] LABS: Absolute Basophil Count 0.05 k/cumm (0.0-0.2); Absolute Lymphocyte Count 1.91 k/cumm (1.2-3.4); Absolute Monocyte Count 0.28 k/cumm (0.11-0.7); Absolute Neutrophil Count 2.37 k/cumm (1.2-6.7); Eosinophils % 4.2; HCT 40.2 % (36.0-46.0); HGB 13.9 g/dL (12.0-15.5); Lymphocytes % 39.7; Mean Corp. HGB Concentration 34.6 g/dL (32.0-36.0); Mean Corpuscular Hemoglobin 30.2 pg (27.0-33.0); Mean Corpuscular Volume 87.4 fL (80-95); Mean Platelet Volume 10.8 fL (8.0-11.0); Monocytes % 5.8; Neutrophils % 49.3; Platelet Count 229 x1000/uL (130-400); RBC Distribution Width 12.6 % (11.7-14.6); White Blood Cell Count 4.81 k/cumm (4.4-10.8)
== END 2020-03-16 13:10 ==
PROVIDERS: PCP Nurse Practitioner Family; Visit Provider Internal Medicine Gastroenterology
DX: K50.912 Crohn's disease, unspecified, with intestinal obstruction (principal)
CPT/HCPCS: 36415; 85025

== ENCOUNTER 2020-04-06 01:22 | Outpatient (RCR) | payer BC, SELFPAY ==
[2020-04-06] VITALS (7 sets, daily range): BP systolic 81–128; BP diastolic 60–76; PULSE 70–82; RESP 18–19; TEMP 36–36.7; O2SAT 96–100
[2020-04-06] MEDS: Normal Saline Flush 10 ML SYR IVP (08:29)
== END 2020-04-30 23:59 | disposition home or self-care (01) ==
LOC: INF 01:22
PROVIDERS: PCP Nurse Practitioner Family; Visit Provider Internal Medicine
DX: K50.912 Crohn's disease, unspecified, with intestinal obstruction (principal)
CPT/HCPCS: 96365; 96366; 96413; 96415; J1745

== ENCOUNTER 2020-04-22 01:34 | Outpatient (CLI) | payer BC, SELFPAY ==
[2020-04-22 10:22] LABS: Abs Immature Grans 0.01 k/cumm (0.0-0.09); Absolute Basophil Count 0.12 k/cumm (0.0-0.2); Absolute Eosinophil Count 1.45 k/cumm (0.0-0.7); Absolute Lymphocyte Count 1.76 k/cumm (1.2-3.4); Absolute Monocyte Count 0.29 k/cumm (0.11-0.7); Absolute Neutrophil Count 2.91 k/cumm (1.2-6.7); Basophils % 1.8; Eosinophils % 22.2; HCT 40.4 % (36.0-46.0); HGB 13.7 g/dL (12.0-15.5); Immature Grans % 0.2 %; Lymphocytes % 26.9; Mean Corp. HGB Concentration 33.9 g/dL (32.0-36.0); Mean Corpuscular Hemoglobin 30.3 pg (27.0-33.0); Mean Corpuscular Volume 89.4 fL (80-95); Mean Platelet Volume 10.6 fL (8.0-11.0); Monocytes % 4.4; Neutrophils % 44.5; Platelet Count 250 x1000/uL (130-400); RBC 4.52 m/cumm (4.00-5.20); RBC Distribution Width 13.7 % (11.7-14.6); White Blood Cell Count 6.54 k/cumm (4.4-10.8)
== END 2020-04-22 01:54 ==
PROVIDERS: PCP Student in an Organized Health Care Education/Training Program; Visit Provider Internal Medicine Gastroenterology
DX: K50.912 Crohn's disease, unspecified, with intestinal obstruction (principal)
CPT/HCPCS: 36415; 85025

== ENCOUNTER 2020-05-26 03:17 | Outpatient (CLI) | payer BC, SELFPAY ==
[2020-05-26 09:26] LABS: Abs Immature Grans 0.01 10^3/uL (0.0-0.06); Absolute Basophil Count 0.06 10^3/uL (0.0-0.2); Absolute Lymphocyte Count 1.76 10^3/uL (1.2-3.4); Absolute Neutrophil Count 2.11 10^3/uL (1.2-6.7); Basophils % 1.3; Eosinophils % 6.6; HCT 39.6 % (36.0-46.0); HGB 13.2 g/dL (11.2-15.7); Immature Grans % 0.2; Lymphocytes % 38.8; MCH 30.4 pg (27.0-33.0); MCHC 33.3 % (32.0-36.0); MCV 91.2 fL (80-95); MPV 10.4 fL (8.0-11.0); Monocytes % 6.6; Neutrophils % 46.5; Nucleated RBC 0 %; Platelet Count 238 10^3/uL (130-400); RBC 4.34 10^6/uL (3.93-5.22); RDW 12.7 % (11.7-14.6); RDW-SD 42.3 fL; WBC 4.54 10^3/uL (4.4-10.8)
== END 2020-05-26 03:37 ==
PROVIDERS: PCP Student in an Organized Health Care Education/Training Program; Visit Provider Internal Medicine Gastroenterology
DX: K50.912 Crohn's disease, unspecified, with intestinal obstruction (principal)
CPT/HCPCS: 36415; 85025

== ENCOUNTER 2020-06-01 01:24 | Outpatient (RCR) | payer BC, SELFPAY ==
[2020-06-01] VITALS (7 sets, daily range): BP systolic 100–119; BP diastolic 57–77; PULSE 64–82; RESP 18–19; TEMP 36.2–37.4; O2SAT 98–100
[2020-06-01] MEDS: Normal Saline Flush 10 ML SYR IVP (09:13)
== END 2020-06-30 23:59 | disposition home or self-care (01) ==
LOC: INF 01:24
PROVIDERS: PCP Student in an Organized Health Care Education/Training Program; Visit Provider Internal Medicine
DX: K50.912 Crohn's disease, unspecified, with intestinal obstruction (principal)
CPT/HCPCS: 96365; 96366; 96413; 96415

== ENCOUNTER 2020-06-11 10:50 | Outpatient (REF) | payer BC, SELFPAY ==
[2020-06-19 05:24] LABS: Lactoferrin, Qt, Stool <30.0 mcg/mL
== END 2020-06-11 11:10 ==
LOC: LBN 10:50
PROVIDERS: PCP Student in an Organized Health Care Education/Training Program; Visit Provider Internal Medicine Gastroenterology
DX: K50.912 Crohn's disease, unspecified, with intestinal obstruction (principal)
CPT/HCPCS: 83631

== ENCOUNTER 2020-06-29 09:45 | Outpatient (CLI) | payer BC, SELFPAY ==
[2020-06-29 10:00] LABS: Abs Immature Grans 0.02 10^3/uL (0.0-0.06); Absolute Basophil Count 0.08 10^3/uL (0.0-0.2); Absolute Eosinophil Count 0.24 10^3/uL (0.0-0.7); Absolute Lymphocyte Count 1.98 10^3/uL (1.2-3.4); Absolute Monocyte Count 0.41 10^3/uL (0.1-0.8); Absolute Neutrophil Count 3.16 10^3/uL (1.2-6.7); Basophils % 1.4; Eosinophils % 4.1; HCT 39.5 % (36.0-46.0); HGB 13.6 g/dL (11.2-15.7); Immature Grans % 0.3; Lymphocytes % 33.6; MCHC 34.4 % (32.0-36.0); MPV 10.6 fL (8.0-11.0); Neutrophils % 53.6; Nucleated RBC 0 %; Platelet Count 240 10^3/uL (130-400); RBC 4.39 10^6/uL (3.93-5.22); RDW 13.1 % (11.7-14.6); WBC 5.89 10^3/uL (4.4-10.8)
== END 2020-06-29 10:05 ==
PROVIDERS: PCP Student in an Organized Health Care Education/Training Program; Visit Provider Internal Medicine Gastroenterology
DX: K50.912 Crohn's disease, unspecified, with intestinal obstruction (principal)
CPT/HCPCS: 36415; 85025

== ENCOUNTER 2020-07-23 02:24 | Outpatient (CLI) | payer BC, SELFPAY ==
[2020-07-23 11:04] LABS: Abs Immature Grans 0.03 10^3/uL (0.0-0.06); Absolute Basophil Count 0.06 10^3/uL (0.0-0.2); Absolute Eosinophil Count 0.13 10^3/uL (0.0-0.7); Absolute Lymphocyte Count 1.81 10^3/uL (1.2-3.4); Absolute Monocyte Count 0.45 10^3/uL (0.1-0.8); Absolute Neutrophil Count 5.48 10^3/uL (1.2-6.7); Basophils % 0.8; Eosinophils % 1.6; HCT 39.2 % (36.0-46.0); HGB 13.5 g/dL (11.2-15.7); Immature Grans % 0.4; Lymphocytes % 22.7; MCH 30.6 pg (27.0-33.0); MCHC 34.4 % (32.0-36.0); MCV 88.9 fL (80-95); MPV 10.6 fL (8.0-11.0); Monocytes % 5.7; Neutrophils % 68.8; Nucleated RBC 0 %; Platelet Count 219 10^3/uL (130-400); RBC 4.41 10^6/uL (3.93-5.22); RDW 12.6 % (11.7-14.6); RDW-SD 41.1 fL; WBC 7.96 10^3/uL (4.4-10.8)
== END 2020-07-23 02:44 ==
PROVIDERS: PCP Student in an Organized Health Care Education/Training Program; Visit Provider Internal Medicine Gastroenterology
DX: K50.912 Crohn's disease, unspecified, with intestinal obstruction (principal)
CPT/HCPCS: 36415; 85025

== ENCOUNTER 2020-07-27 08:00 | Outpatient (RCR) | payer BC, SELFPAY ==
[2020-07-27] VITALS (7 sets, daily range): BP systolic 99–121; BP diastolic 58–70; PULSE 67–74; RESP 17–18; TEMP 36.2–36.7; O2SAT 96–100
[2020-07-27] MEDS: Normal Saline Flush 10 ML SYR IVP (09:18)
== END 2020-07-31 23:59 | disposition home or self-care (01) ==
LOC: INF 08:00
PROVIDERS: PCP Student in an Organized Health Care Education/Training Program; Visit Provider Internal Medicine
DX: K50.912 Crohn's disease, unspecified, with intestinal obstruction (principal)
CPT/HCPCS: 96365; 96366

== ENCOUNTER 2020-08-27 04:55 | Outpatient (CLI) | payer BC, SELFPAY ==
[2020-08-27 13:08] LABS: Abs Immature Grans 0.01 10^3/uL (0.0-0.06); Absolute Basophil Count 0.05 10^3/uL (0.0-0.2); Absolute Eosinophil Count 0.13 10^3/uL (0.0-0.7); Absolute Lymphocyte Count 1.94 10^3/uL (1.2-3.4); Absolute Monocyte Count 0.35 10^3/uL (0.1-0.8); Absolute Neutrophil Count 3.82 10^3/uL (1.2-6.7); Basophils % 0.8; Eosinophils % 2.1; HCT 38.7 % (36.0-46.0); HGB 13.2 g/dL (11.2-15.7); Immature Grans % 0.2; Lymphocytes % 30.8; MCH 30.9 pg (27.0-33.0); MCHC 34.1 % (32.0-36.0); MCV 90.6 fL (80-95); MPV 10.5 fL (8.0-11.0); Monocytes % 5.6; Neutrophils % 60.5; Nucleated RBC 0 %; Platelet Count 208 10^3/uL (130-400); RBC 4.27 10^6/uL (3.93-5.22); RDW 12.1 % (11.7-14.6)
== END 2020-08-27 05:15 ==
PROVIDERS: PCP Student in an Organized Health Care Education/Training Program; Visit Provider Internal Medicine Gastroenterology
DX: K50.912 Crohn's disease, unspecified, with intestinal obstruction (principal)
CPT/HCPCS: 36415; 85025

== ENCOUNTER 2020-09-21 01:33 | Outpatient (RCR) | payer BC, SELFPAY ==
[2020-09-21] VITALS (7 sets, daily range): BP systolic 104–134; BP diastolic 64–77; PULSE 56–82; RESP 18–19; TEMP 36–36.8; O2SAT 96–99
[2020-09-21 08:47] LABS: Abs Immature Grans 0.01 10^3/uL (0.0-0.06); Absolute Basophil Count 0.05 10^3/uL (0.0-0.2); Absolute Eosinophil Count 0.14 10^3/uL (0.0-0.7); Absolute Lymphocyte Count 1.37 10^3/uL (1.2-3.4); Absolute Monocyte Count 0.33 10^3/uL (0.1-0.8); Absolute Neutrophil Count 2.47 10^3/uL (1.2-6.7); Basophils % 1.1; Eosinophils % 3.2; HCT 38.3 % (36.0-46.0); HGB 13.5 g/dL (11.2-15.7); Immature Grans % 0.2; Lymphocytes % 31.4; MCH 31.3 pg (27.0-33.0); MCHC 35.2 % (32.0-36.0); MCV 88.9 fL (80-95); MPV 10.6 fL (8.0-11.0); Monocytes % 7.6; Neutrophils % 56.5; Nucleated RBC 0 %; Platelet Count 221 10^3/uL (130-400); RBC 4.31 10^6/uL (3.93-5.22); RDW 12.3 % (11.7-14.6); RDW-SD 40.1 fL; WBC 4.37 10^3/uL (4.4-10.8)
[2020-09-21] MEDS: Normal Saline Flush 10 ML SYR IVP (09:08)
== END 2020-09-30 23:59 | disposition home or self-care (01) ==
LOC: INF 01:33
PROVIDERS: Internal Medicine Gastroenterology; PCP Student in an Organized Health Care Education/Training Program; Visit Provider Internal Medicine
DX: K50.912 Crohn's disease, unspecified, with intestinal obstruction (principal)
CPT/HCPCS: 36415; 96365; 96366; 96413; 96415; 85025

== ENCOUNTER → 2020-10-29 02:06 | Outpatient (CLI) | payer BC, SELFPAY ==
[2020-10-29 11:11] LABS: Abs Immature Grans 0.01 10^3/uL (0.0-0.06); Absolute Basophil Count 0.08 10^3/uL (0.0-0.2); Absolute Eosinophil Count 0.15 10^3/uL (0.0-0.7); Absolute Lymphocyte Count 1.82 10^3/uL (1.2-3.4); Absolute Monocyte Count 0.27 10^3/uL (0.1-0.8); Absolute Neutrophil Count 2.97 10^3/uL (1.2-6.7); Basophils % 1.5; Eosinophils % 2.8; HCT 41.9 % (36.0-46.0); HGB 14.7 g/dL (11.2-15.7); Immature Grans % 0.2; Lymphocytes % 34.3; MCH 31.1 pg (27.0-33.0); MCHC 35.1 % (32.0-36.0); MCV 88.6 fL (80-95); MPV 10.4 fL (8.0-11.0); Monocytes % 5.1; Neutrophils % 56.1; Nucleated RBC 0 %; Platelet Count 246 10^3/uL (130-400); RBC 4.73 10^6/uL (3.93-5.22); RDW-SD 39.3 fL
== END ==
PROVIDERS: PCP Student in an Organized Health Care Education/Training Program; Visit Provider Internal Medicine Gastroenterology
DX: K50.912 Crohn's disease, unspecified, with intestinal obstruction (principal)
CPT/HCPCS: 36415; 85025

== ENCOUNTER 2020-11-16 01:58 | Outpatient (RCR) | payer BC, SELFPAY ==
[2020-10-01 00:01] VITALS: BP 134/76; PULSE 68; RESP 18; TEMP 36
[2020-11-16] VITALS (7 sets, daily range): BP systolic 100–120; BP diastolic 61–84; PULSE 50–82; RESP 17–20; TEMP 36–36.8; O2SAT 96–99
[2020-11-16] MEDS: Normal Saline Flush 10 ML SYR IVP (09:04)
== END 2020-11-28 23:59 | disposition home or self-care (01) ==
LOC: INF 01:58
PROVIDERS: PCP Student in an Organized Health Care Education/Training Program; Visit Provider Internal Medicine
DX: K50.912 Crohn's disease, unspecified, with intestinal obstruction (principal)
CPT/HCPCS: 96365; 96366; 96413; 96415; J1745

== ENCOUNTER 2020-11-24 02:52 | Outpatient (CLI) | payer BC, SELFPAY ==
[2020-11-24 11:34] LABS: Abs Immature Grans 0.02 10^3/uL (0.0-0.06); Absolute Basophil Count 0.06 10^3/uL (0.0-0.2); Absolute Eosinophil Count 0.15 10^3/uL (0.0-0.7); Absolute Lymphocyte Count 1.87 10^3/uL (1.2-3.4); Absolute Monocyte Count 0.39 10^3/uL (0.1-0.8); Absolute Neutrophil Count 4.26 10^3/uL (1.2-6.7); Basophils % 0.9; Eosinophils % 2.2; HCT 38.2 % (36.0-46.0); HGB 13.3 g/dL (11.2-15.7); Immature Grans % 0.3; Lymphocytes % 27.7; MCH 30.6 pg (27.0-33.0); MCHC 34.8 % (32.0-36.0); MPV 10.8 fL (8.0-11.0); Monocytes % 5.8; Neutrophils % 63.1; Nucleated RBC 0 %; Platelet Count 223 10^3/uL (130-400); RBC 4.34 10^6/uL (3.93-5.22); RDW 12.4 % (11.7-14.6); RDW-SD 40.3 fL; WBC 6.75 10^3/uL (4.4-10.8)
== END 2020-11-24 02:53 | disposition home or self-care (01) ==
LOC: LBO 02:53
PROVIDERS: PCP Student in an Organized Health Care Education/Training Program; Visit Provider Internal Medicine Gastroenterology
DX: K50.912 Crohn's disease, unspecified, with intestinal obstruction (principal)
CPT/HCPCS: 36415; 85025

== ENCOUNTER 2020-12-28 03:50 | Outpatient (CLI) | payer BC, SELFPAY ==
[2020-12-28 11:13] LABS: Abs Immature Grans 0.02 10^3/uL (0.0-0.06); Absolute Basophil Count 0.05 10^3/uL (0.0-0.2); Absolute Eosinophil Count 0.14 10^3/uL (0.0-0.7); Absolute Lymphocyte Count 1.92 10^3/uL (1.2-3.4); Absolute Monocyte Count 0.44 10^3/uL (0.1-0.8); Absolute Neutrophil Count 4.16 10^3/uL (1.2-6.7); Basophils % 0.7; Eosinophils % 2.1; HCT 41.7 % (36.0-46.0); HGB 14.3 g/dL (11.2-15.7); Immature Grans % 0.3; Lymphocytes % 28.5; MCH 30.8 pg (27.0-33.0); MCHC 34.3 % (32.0-36.0); MCV 89.9 fL (80-95); MPV 10.4 fL (8.0-11.0); Monocytes % 6.5; Neutrophils % 61.9; Nucleated RBC 0 %; Platelet Count 225 10^3/uL (130-400); RBC 4.64 10^6/uL (3.93-5.22); RDW 12.4 % (11.7-14.6); RDW-SD 40.5 fL; WBC 6.73 10^3/uL (4.4-10.8)
== END 2020-12-28 03:51 | disposition home or self-care (01) ==
LOC: LBO 03:50
PROVIDERS: PCP Student in an Organized Health Care Education/Training Program; Visit Provider Internal Medicine Gastroenterology
DX: K50.912 Crohn's disease, unspecified, with intestinal obstruction (principal)
CPT/HCPCS: 36415; 85025

== ENCOUNTER 2021-01-12 02:41 | Outpatient (RCR) | payer BC, SELFPAY ==
[2020-11-29 00:01] VITALS: BP 101/67; PULSE 73; RESP 17; TEMP 36.2
[2021-01-12] VITALS (8 sets, daily range): BP systolic 95–118; BP diastolic 60–78; PULSE 62–79; RESP 14–16; TEMP 36–36.5; O2SAT 97–99
[2021-01-12] MEDS: Normal Saline Flush 10 ML SYR IVP (08:57)
== END 2021-01-28 23:59 | disposition home or self-care (01) ==
LOC: INF 02:41
PROVIDERS: PCP Student in an Organized Health Care Education/Training Program; Visit Provider Internal Medicine
DX: K50.912 Crohn's disease, unspecified, with intestinal obstruction (principal)
CPT/HCPCS: 96365; 96366; 96413; 96415; J1745

== ENCOUNTER 2021-01-27 02:19 | Outpatient (CLI) | payer BC, SELFPAY ==
[2021-01-27 10:48] LABS: Abs Immature Grans 0.01 10^3/uL (0.0-0.06); Absolute Basophil Count 0.08 10^3/uL (0.0-0.2); Absolute Eosinophil Count 0.12 10^3/uL (0.0-0.7); Absolute Neutrophil Count 2.81 10^3/uL (1.2-6.7); Basophils % 1.6; Eosinophils % 2.3; HCT 39.2 % (36.0-46.0); HGB 13.5 g/dL (11.2-15.7); Immature Grans % 0.2; Lymphocytes % 33.2; MCH 31.1 pg (27.0-33.0); MCHC 34.4 % (32.0-36.0); MCV 90.3 fL (80-95); MPV 10.4 fL (8.0-11.0); Monocytes % 7.8; Neutrophils % 54.9; Nucleated RBC 0 %; Platelet Count 197 10^3/uL (130-400); RBC 4.34 10^6/uL (3.93-5.22); RDW 12.2 % (11.7-14.6); RDW-SD 40.4 fL; WBC 5.12 10^3/uL (4.4-10.8)
== END 2021-01-27 02:20 | disposition home or self-care (01) ==
LOC: LBO 02:19
PROVIDERS: PCP Student in an Organized Health Care Education/Training Program; Visit Provider Internal Medicine Gastroenterology
DX: K50.912 Crohn's disease, unspecified, with intestinal obstruction (principal)
CPT/HCPCS: 36415; 85025

== ENCOUNTER 2021-03-02 07:49 | Outpatient (CLI) | payer BC, SELFPAY ==
[2021-03-02 12:50] LABS: Abs Immature Grans 0.01 10^3/uL (0.0-0.06); Absolute Basophil Count 0.06 10^3/uL (0.0-0.2); Absolute Eosinophil Count 0.24 10^3/uL (0.0-0.7); Absolute Lymphocyte Count 1.92 10^3/uL (1.2-3.4); Absolute Monocyte Count 0.34 10^3/uL (0.1-0.8); Absolute Neutrophil Count 3.29 10^3/uL (1.2-6.7); Eosinophils % 4.1; HGB 13.7 g/dL (11.2-15.7); Immature Grans % 0.2; Lymphocytes % 32.8; MCHC 35.1 % (32.0-36.0); MCV 88.2 fL (80-95); MPV 10.3 fL (8.0-11.0); Monocytes % 5.8; Neutrophils % 56.1; Nucleated RBC 0 %; Platelet Count 199 10^3/uL (130-400); RBC 4.42 10^6/uL (3.93-5.22); RDW 11.9 % (11.7-14.6); RDW-SD 38.5 fL; WBC 5.86 10^3/uL (4.4-10.8)
[2021-03-05 12:57] LABS: Infliximab 17 mcg/mL (<=5.0)
== END 2021-03-02 07:50 | disposition home or self-care (01) ==
LOC: LBO 07:49
PROVIDERS: PCP Student in an Organized Health Care Education/Training Program; Visit Provider Internal Medicine Gastroenterology
DX: K50.912 Crohn's disease, unspecified, with intestinal obstruction (principal)
CPT/HCPCS: 36415; 82397; 85025

== ENCOUNTER 2021-03-08 03:13 | Outpatient (RCR) | payer BC, SELFPAY ==
[2021-01-29 00:01] VITALS: BP 112/70; PULSE 73; RESP 16; TEMP 36.2
[2021-03-08 08:55] VITALS: BP 125/70; PULSE 65; RESP 18; TEMP 36.6; O2SAT 99
[2021-03-08] MEDS: Normal Saline Flush 10 ML SYR IVP (08:56)
[2021-03-08 09:29] VITALS: BP 113/70; PULSE 69; RESP 18; TEMP 36.6; O2SAT 100
[2021-03-08 09:45] VITALS: BP 107/70; PULSE 74; RESP 18; TEMP 36.4; O2SAT 99
[2021-03-08 10:00] VITALS: BP 105/69; PULSE 73; RESP 16; TEMP 37; O2SAT 99
[2021-03-08 10:30] VITALS: BP 114/73; PULSE 75; RESP 18; TEMP 37; O2SAT 99
== END 2021-03-30 23:59 | disposition home or self-care (01) ==
LOC: INF 03:13
PROVIDERS: PCP Student in an Organized Health Care Education/Training Program; Visit Provider Internal Medicine
DX: K50.912 Crohn's disease, unspecified, with intestinal obstruction (principal)
CPT/HCPCS: 96365; 96366; 96413; 96415; J1745

== ENCOUNTER 2021-03-30 03:52 | Outpatient (CLI) | payer BC, SELFPAY ==
[2021-03-30 10:31] LABS: Abs Immature Grans 0.03 10^3/uL (0.0-0.06); Absolute Basophil Count 0.08 10^3/uL (0.0-0.2); Absolute Eosinophil Count 0.51 10^3/uL (0.0-0.7); Absolute Lymphocyte Count 1.91 10^3/uL (1.2-3.4); Absolute Monocyte Count 0.49 10^3/uL (0.1-0.8); Absolute Neutrophil Count 3.24 10^3/uL (1.2-6.7); Basophils % 1.3; Eosinophils % 8.1; HCT 40.3 % (36.0-46.0); HGB 13.8 g/dL (11.2-15.7); Immature Grans % 0.5; Lymphocytes % 30.5; MCH 30.9 pg (27.0-33.0); MCHC 34.2 % (32.0-36.0); MCV 90.2 fL (80-95); MPV 10.2 fL (8.0-11.0); Monocytes % 7.8; Neutrophils % 51.8; Nucleated RBC 0 %; Platelet Count 209 10^3/uL (130-400); RBC 4.47 10^6/uL (3.93-5.22); RDW 12.6 % (11.7-14.6); RDW-SD 41.5 fL; WBC 6.26 10^3/uL (4.4-10.8)
== END 2021-03-30 03:53 | disposition home or self-care (01) ==
LOC: LBO 03:52
PROVIDERS: Internal Medicine Gastroenterology; PCP Student in an Organized Health Care Education/Training Program; Visit Provider Nurse Practitioner Family
DX: K50.912 Crohn's disease, unspecified, with intestinal obstruction (principal)
CPT/HCPCS: 36415; 85025

== ENCOUNTER 2021-04-21 09:24 | Outpatient (CLI) | payer BC, SELFPAY ==
[2021-04-21 11:36] LABS: Abs Immature Grans 0.02 10^3/uL (0.0-0.06); Absolute Basophil Count 0.05 10^3/uL (0.0-0.2); Absolute Eosinophil Count 0.34 10^3/uL (0.0-0.7); Absolute Monocyte Count 0.37 10^3/uL (0.1-0.8); Absolute Neutrophil Count 3.64 10^3/uL (1.2-6.7); Basophils % 0.8; Eosinophils % 5.6; HCT 40.1 % (36.0-46.0); HGB 13.8 g/dL (11.2-15.7); Immature Grans % 0.3; Lymphocytes % 27.8; MCH 31.2 pg (27.0-33.0); MCHC 34.4 % (32.0-36.0); MCV 90.5 fL (80-95); MPV 10.3 fL (8.0-11.0); Neutrophils % 59.5; Nucleated RBC 0 %; Platelet Count 221 10^3/uL (130-400); RBC 4.43 10^6/uL (3.93-5.22); RDW 12.4 % (11.7-14.6); RDW-SD 41.3 fL; WBC 6.12 10^3/uL (4.4-10.8)
== END 2021-04-21 09:25 | disposition home or self-care (01) ==
LOC: LBO 09:24
PROVIDERS: PCP Student in an Organized Health Care Education/Training Program; Visit Provider Internal Medicine Gastroenterology
DX: K50.912 Crohn's disease, unspecified, with intestinal obstruction (principal)
CPT/HCPCS: 36415; 85025

== ENCOUNTER 2021-05-05 03:11 | Outpatient (RCR) | payer BC, SELFPAY ==
[2021-03-31 00:15] VITALS: BP 114/73; PULSE 75; RESP 18; TEMP 37
[2021-05-05 09:00] VITALS: BP 114/67; PULSE 74; RESP 16; TEMP 36.9; O2SAT 98
[2021-05-05] MEDS: Normal Saline Flush 10 ML SYR IVP (09:10)
[2021-05-05 09:30] VITALS: BP 112/66; PULSE 68; RESP 16; TEMP 37; O2SAT 98
[2021-05-05 09:45] VITALS: BP 106/69; PULSE 62; RESP 16; TEMP 37; O2SAT 98
[2021-05-05 10:00] VITALS: BP 107/67; PULSE 64; RESP 16; TEMP 36.7; O2SAT 99
[2021-05-05 10:15] VITALS: BP 106/70; PULSE 64; RESP 16; TEMP 37; O2SAT 99
[2021-05-05 10:50] VITALS: BP 105/64; PULSE 62; RESP 16; TEMP 36.8; O2SAT 99
== END 2021-05-31 23:59 | disposition home or self-care (01) ==
LOC: INF 03:11
PROVIDERS: PCP Student in an Organized Health Care Education/Training Program; Visit Provider Internal Medicine
DX: K50.912 Crohn's disease, unspecified, with intestinal obstruction (principal)
CPT/HCPCS: 96365; 96366; 96413; 96415; J1745

== ENCOUNTER 2021-05-26 03:46 | Outpatient (CLI) | payer BC, SELFPAY ==
[2021-05-26 11:19] LABS: Abs Immature Grans 0.02 10^3/uL (0.0-0.06); Absolute Basophil Count 0.04 10^3/uL (0.0-0.2); Absolute Eosinophil Count 0.15 10^3/uL (0.0-0.7); Absolute Lymphocyte Count 1.74 10^3/uL (1.2-3.4); Absolute Monocyte Count 0.45 10^3/uL (0.1-0.8); Absolute Neutrophil Count 2.74 10^3/uL (1.2-6.7); Basophils % 0.8; Eosinophils % 2.9; HCT 40.9 % (36.0-46.0); HGB 13.9 g/dL (11.2-15.7); Immature Grans % 0.4; Lymphocytes % 33.9; MCH 30.3 pg (27.0-33.0); MCV 89.3 fL (80-95); MPV 10.2 fL (8.0-11.0); Monocytes % 8.8; Neutrophils % 53.2; Nucleated RBC 0 %; Platelet Count 196 10^3/uL (130-400); RBC 4.58 10^6/uL (3.93-5.22); RDW 12.1 % (11.7-14.6); RDW-SD 39.5 fL; WBC 5.14 10^3/uL (4.4-10.8)
== END 2021-05-26 03:47 | disposition home or self-care (01) ==
LOC: LBO 03:46
PROVIDERS: PCP Student in an Organized Health Care Education/Training Program; Visit Provider Internal Medicine Gastroenterology
DX: K50.912 Crohn's disease, unspecified, with intestinal obstruction (principal)
CPT/HCPCS: 36415; 85025

== ENCOUNTER 2021-06-28 03:58 | Outpatient (CLI) | payer BC, SELFPAY ==
[2021-06-28 10:31] LABS: Abs Immature Grans 0.01 10^3/uL (0.0-0.06); Absolute Basophil Count 0.05 10^3/uL (0.0-0.2); Absolute Eosinophil Count 0.12 10^3/uL (0.0-0.7); Absolute Monocyte Count 0.32 10^3/uL (0.1-0.8); Absolute Neutrophil Count 2.76 10^3/uL (1.2-6.7); Basophils % 1.1; Eosinophils % 2.6; HCT 40.7 % (36.0-46.0); HGB 13.9 g/dL (11.2-15.7); Immature Grans % 0.2; Lymphocytes % 28.5; MCH 30.5 pg (27.0-33.0); MCHC 34.2 % (32.0-36.0); MCV 89.5 fL (80-95); MPV 10.3 fL (8.0-11.0); Neutrophils % 60.6; Nucleated RBC 0 %; Platelet Count 238 10^3/uL (130-400); RBC 4.55 10^6/uL (3.93-5.22); RDW-SD 39.6 fL; WBC 4.56 10^3/uL (4.4-10.8)
== END 2021-06-28 03:59 | disposition home or self-care (01) ==
LOC: LBO 03:58
PROVIDERS: PCP Student in an Organized Health Care Education/Training Program; Visit Provider Internal Medicine Gastroenterology
DX: K50.912 Crohn's disease, unspecified, with intestinal obstruction (principal)
CPT/HCPCS: 36415; 85025

== ENCOUNTER 2021-06-30 03:41 | Outpatient (RCR) | payer BC, SELFPAY ==
[2021-06-01 00:02] VITALS: BP 105/64; PULSE 62; RESP 16; TEMP 36.8
[2021-06-30] VITALS (8 sets, daily range): BP systolic 90–114; BP diastolic 57–74; PULSE 67–79; RESP 16–18; TEMP 35.4–36.3; O2SAT 98–99
[2021-06-30] MEDS: Normal Saline Flush 10 ML SYR IVP (08:40)
== END 2021-06-30 23:59 | disposition home or self-care (01) ==
LOC: INF 03:41
PROVIDERS: PCP Student in an Organized Health Care Education/Training Program; Visit Provider Internal Medicine
DX: K50.912 Crohn's disease, unspecified, with intestinal obstruction (principal)
CPT/HCPCS: 96365; 96366; 96413; 96415; J1745

== ENCOUNTER 2021-07-22 02:03 | Outpatient (CLI) | payer BC, SELFPAY ==
[2021-07-22 10:11] LABS: Abs Immature Grans 0.01 10^3/uL (0.0-0.06); Absolute Basophil Count 0.07 10^3/uL (0.0-0.2); Absolute Eosinophil Count 0.17 10^3/uL (0.0-0.7); Absolute Lymphocyte Count 1.54 10^3/uL (1.2-3.4); Absolute Monocyte Count 0.45 10^3/uL (0.1-0.8); Absolute Neutrophil Count 3.02 10^3/uL (1.2-6.7); Basophils % 1.3; Eosinophils % 3.2; HGB 14.2 g/dL (11.2-15.7); Immature Grans % 0.2; Lymphocytes % 29.3; MCH 30.7 pg (27.0-33.0); MCHC 33.8 % (32.0-36.0); MCV 90.7 fL (80-95); MPV 10.8 fL (8.0-11.0); Monocytes % 8.6; Neutrophils % 57.4; Nucleated RBC 0 %; Platelet Count 204 10^3/uL (130-400); RBC 4.63 10^6/uL (3.93-5.22); RDW-SD 39.8 fL; WBC 5.26 10^3/uL (4.4-10.8)
== END 2021-07-22 02:04 | disposition home or self-care (01) ==
LOC: LBO 02:03
PROVIDERS: PCP Student in an Organized Health Care Education/Training Program; Visit Provider Internal Medicine Gastroenterology
DX: K50.912 Crohn's disease, unspecified, with intestinal obstruction (principal)
CPT/HCPCS: 36415; 85025

== ENCOUNTER 2021-08-23 01:38 | Outpatient (RCR) | payer BC, SELFPAY ==
[2021-07-01 00:03] VITALS: BP 108/74; PULSE 67; RESP 17; TEMP 35.5
[2021-08-23] MEDS: Normal Saline Flush 10 ML SYR IVP (08:13)
[2021-08-23 08:14] VITALS: BP 113/70; PULSE 77; RESP 17; TEMP 35.6; O2SAT 100
[2021-08-23 08:37] VITALS: BP 109/75; PULSE 69; RESP 17; TEMP 35.4; O2SAT 99
[2021-08-23 08:52] VITALS: BP 101/67; PULSE 64; RESP 17; TEMP 34.4; O2SAT 99
[2021-08-23 09:05] VITALS: BP 100/62; PULSE 70; RESP 17; TEMP 36; O2SAT 100
[2021-08-23 09:20] VITALS: BP 111/61; PULSE 68; RESP 20; TEMP 36.8; O2SAT 99
[2021-08-23 09:55] VITALS: BP 98/64; PULSE 64; RESP 17; TEMP 36.8; O2SAT 100
== END 2021-08-30 23:59 | disposition home or self-care (01) ==
LOC: INF 01:38
PROVIDERS: PCP Student in an Organized Health Care Education/Training Program; Visit Provider Internal Medicine
DX: K50.912 Crohn's disease, unspecified, with intestinal obstruction (principal); Z79.899 Other long term (current) drug therapy
CPT/HCPCS: 96365; 96366; 96413; 96415; J1745

== ENCOUNTER 2021-09-01 22:50 | Outpatient (REF) | payer BC, SELFPAY | END 2021-09-01 22:51 | disposition home or self-care (01) | LOC: LBN 22:50 | PROVIDERS: PCP Student in an Organized Health Care Education/Training Program; Visit Provider Student in an Organized Health Care Education/Training Program | DX: K50.912 Crohn's disease, unspecified, with intestinal obstruction (principal) | CPT/HCPCS: 87798; 83630 ==

== ENCOUNTER 2021-09-29 03:04 | Outpatient (CLI) | payer BC, SELFPAY ==
[2021-09-29 11:42] LABS: Abs Immature Grans 0.02 10^3/uL (0.0-0.06); Absolute Basophil Count 0.07 10^3/uL (0.0-0.2); Absolute Eosinophil Count 0.13 10^3/uL (0.0-0.7); Absolute Lymphocyte Count 1.45 10^3/uL (1.2-3.4); Absolute Monocyte Count 0.34 10^3/uL (0.1-0.8); Absolute Neutrophil Count 3.32 10^3/uL (1.2-6.7); Basophils % 1.3; Eosinophils % 2.4; HCT 42.3 % (36.0-46.0); HGB 14.1 g/dL (11.2-15.7); Immature Grans % 0.4; Lymphocytes % 27.2; MCH 30.2 pg (27.0-33.0); MCHC 33.3 % (32.0-36.0); MCV 90.6 fL (80-95); MPV 10.3 fL (8.0-11.0); Monocytes % 6.4; Neutrophils % 62.3; Nucleated RBC 0 %; Platelet Count 233 10^3/uL (130-400); RBC 4.67 10^6/uL (3.93-5.22); RDW 12.2 % (11.7-14.6); RDW-SD 40.2 fL; WBC 5.33 10^3/uL (4.4-10.8)
== END 2021-09-29 03:05 | disposition home or self-care (01) ==
LOC: LBO 03:04
PROVIDERS: Internal Medicine Gastroenterology; PCP Student in an Organized Health Care Education/Training Program; Visit Provider Student in an Organized Health Care Education/Training Program
DX: K50.912 Crohn's disease, unspecified, with intestinal obstruction (principal)
CPT/HCPCS: 36415; 85025

== ENCOUNTER 2021-10-18 01:23 | Outpatient (RCR) | payer BC, SELFPAY ==
[2021-08-31 00:01] VITALS: BP 98/64; PULSE 64; RESP 17; TEMP 36.8
[2021-10-18 08:10] VITALS: BP 147/80; PULSE 75; RESP 17; TEMP 37; O2SAT 100
[2021-10-18] MEDS: Normal Saline Flush 10 ML SYR IVP (09:04)
[2021-10-18 11:00] VITALS: BP 126/83; PULSE 84; RESP 18; TEMP 36.2; O2SAT 97
== END 2021-10-31 23:59 | disposition home or self-care (01) ==
LOC: INF 01:23
PROVIDERS: PCP Student in an Organized Health Care Education/Training Program; Visit Provider Internal Medicine
DX: K50.912 Crohn's disease, unspecified, with intestinal obstruction (principal)
CPT/HCPCS: 96365; 96366; 96413; 96415; J1745

== ENCOUNTER 2021-10-28 04:25 | Outpatient (CLI) | payer BC, SELFPAY ==
[2021-10-28 11:08] LABS: HGB 14.4 g/dL (11.2-15.7); MCH 30.2 pg (27.0-33.0); MCHC 34.3 % (32.0-36.0); MCV 88.1 fL (80-95); MPV 10.5 fL (8.0-11.0); Nucleated RBC 0 %; Platelet Count 208 10^3/uL (130-400); RBC 4.77 10^6/uL (3.93-5.22); RDW 11.5 % (11.7-14.6); RDW-SD 37.2 fL; WBC 5.31 10^3/uL (4.4-10.8)
[2021-10-28 11:26] LABS: Absolute Neutrophil Count 2.92 10^3/uL (1.2-6.7)
[2021-10-28 11:27] LABS: Absolute Lymphocyte Count 2.02 10^3/uL (1.2-3.4); Absolute Monocyte Count 0.37 10^3/uL (0.1-0.8); Atypical Lymphocytes % 8; Diff Comment Manual Differential; RBC Morphology Normal
== END 2021-10-28 04:26 | disposition home or self-care (01) ==
LOC: LBO 04:25
PROVIDERS: PCP Student in an Organized Health Care Education/Training Program; Visit Provider Internal Medicine Gastroenterology
DX: K50.912 Crohn's disease, unspecified, with intestinal obstruction (principal)
CPT/HCPCS: 36415; 85025

== ENCOUNTER 2021-11-24 01:38 | Outpatient (CLI) | payer BC, SELFPAY ==
[2021-11-24 10:44] LABS: Abs Immature Grans 0.02 10^3/uL (0.0-0.06); Absolute Basophil Count 0.06 10^3/uL (0.0-0.2); Absolute Monocyte Count 0.37 10^3/uL (0.1-0.8); Absolute Neutrophil Count 3.07 10^3/uL (1.2-6.7); Basophils % 1.1; Eosinophils % 1.8; HCT 41.7 % (36.0-46.0); HGB 14.4 g/dL (11.2-15.7); Immature Grans % 0.4; Lymphocytes % 33.2; MCH 30.6 pg (27.0-33.0); MCHC 34.5 % (32.0-36.0); MCV 88.7 fL (80-95); MPV 10.4 fL (8.0-11.0); Monocytes % 6.8; Neutrophils % 56.7; Nucleated RBC 0 %; Platelet Count 220 10^3/uL (130-400); RDW 12.4 % (11.7-14.6); RDW-SD 40.6 fL; WBC 5.42 10^3/uL (4.4-10.8)
== END 2021-11-24 01:39 | disposition home or self-care (01) ==
LOC: LBO 01:46
PROVIDERS: PCP Student in an Organized Health Care Education/Training Program; Visit Provider Internal Medicine Gastroenterology
DX: K50.912 Crohn's disease, unspecified, with intestinal obstruction (principal)
CPT/HCPCS: 36415; 85025

== ENCOUNTER 2021-12-13 00:55 | Outpatient (RCR) | payer BC, SELFPAY ==
[2021-11-01 00:01] VITALS: BP 126/83; PULSE 84; RESP 18; TEMP 36.2
[2021-12-13 08:00] VITALS: BP 118/62; PULSE 61; RESP 17; TEMP 35.5; O2SAT 97
[2021-12-13] MEDS: Normal Saline Flush 10 ML SYR IVP (08:23)
[2021-12-13 10:20] VITALS: BP 115/69; PULSE 60; RESP 16; TEMP 36; O2SAT 99
== END 2021-12-29 23:59 | disposition home or self-care (01) ==
LOC: INF 00:55
PROVIDERS: PCP Student in an Organized Health Care Education/Training Program; Visit Provider Internal Medicine
DX: K50.912 Crohn's disease, unspecified, with intestinal obstruction (principal)
CPT/HCPCS: 96365; 96366; 96413; 96415; J1745

== ENCOUNTER 2021-12-23 03:34 | Outpatient (CLI) | payer BC, SELFPAY ==
[2021-12-23 12:07] LABS: Abs Immature Grans 0.02 10^3/uL (0.0-0.06); Absolute Basophil Count 0.08 10^3/uL (0.0-0.2); Absolute Eosinophil Count 0.18 10^3/uL (0.0-0.7); Absolute Lymphocyte Count 2.05 10^3/uL (1.2-3.4); Absolute Monocyte Count 0.33 10^3/uL (0.1-0.8); Absolute Neutrophil Count 3.93 10^3/uL (1.2-6.7); Basophils % 1.2; Eosinophils % 2.7; Immature Grans % 0.3; Lymphocytes % 31.1; MCH 30.6 pg (27.0-33.0); MCHC 34.1 % (32.0-36.0); MCV 89.5 fL (80-95); MPV 10.2 fL (8.0-11.0); Neutrophils % 59.7; Nucleated RBC 0 %; Platelet Count 236 10^3/uL (130-400); RBC 4.58 10^6/uL (3.93-5.22); RDW 12.3 % (11.7-14.6); RDW-SD 40.2 fL; WBC 6.59 10^3/uL (4.4-10.8)
== END 2021-12-23 03:35 | disposition home or self-care (01) ==
LOC: LBO 03:34
PROVIDERS: PCP Student in an Organized Health Care Education/Training Program; Visit Provider Internal Medicine Gastroenterology
DX: K50.912 Crohn's disease, unspecified, with intestinal obstruction (principal)
CPT/HCPCS: 36415; 85025

== ENCOUNTER 2022-01-25 04:40 | Outpatient (CLI) | payer BC, SELFPAY ==
[2022-01-25 12:21] LABS: Abs Immature Grans 0.01 10^3/uL (0.0-0.06); Absolute Basophil Count 0.08 10^3/uL (0.0-0.2); Absolute Eosinophil Count 0.14 10^3/uL (0.0-0.7); Absolute Lymphocyte Count 1.84 10^3/uL (1.2-3.4); Absolute Monocyte Count 0.31 10^3/uL (0.1-0.8); Absolute Neutrophil Count 3.25 10^3/uL (1.2-6.7); Basophils % 1.4; Eosinophils % 2.5; HCT 42.9 % (36.0-46.0); HGB 14.5 g/dL (11.2-15.7); Immature Grans % 0.2; Lymphocytes % 32.7; MCH 30.5 pg (27.0-33.0); MCHC 33.8 % (32.0-36.0); MCV 90.1 fL (80-95); MPV 10.4 fL (8.0-11.0); Monocytes % 5.5; Neutrophils % 57.7; Platelet Count 230 10^3/uL (130-400); RBC 4.76 10^6/uL (3.93-5.22); RDW 12.3 % (11.7-14.6); RDW-SD 40.9 fL; WBC 5.63 10^3/uL (4.4-10.8)
== END 2022-01-25 04:41 | disposition home or self-care (01) ==
LOC: LBO 04:40
PROVIDERS: PCP Student in an Organized Health Care Education/Training Program; Visit Provider Internal Medicine Gastroenterology
DX: K50.912 Crohn's disease, unspecified, with intestinal obstruction (principal)
CPT/HCPCS: 36415; 85025

== ENCOUNTER 2022-02-07 01:02 | Outpatient (RCR) | payer BC, SELFPAY ==
[2021-12-30] VITALS: BP 115/69; PULSE 60; RESP 16; TEMP 36
[2022-02-07] MEDS: Normal Saline Flush 10 ML SYR IVP (08:31)
[2022-02-07 08:32] VITALS: BP 89/40; PULSE 77; RESP 17; TEMP 35.1; O2SAT 98
[2022-02-07 10:50] VITALS: BP 109/72; PULSE 67; RESP 17; TEMP 35.8; O2SAT 100
== END 2022-02-28 23:59 | disposition home or self-care (01) ==
LOC: INF 01:02
PROVIDERS: PCP Student in an Organized Health Care Education/Training Program; Visit Provider Internal Medicine
DX: K50.912 Crohn's disease, unspecified, with intestinal obstruction (principal); Z79.899 Other long term (current) drug therapy
CPT/HCPCS: 96365; 96366; 96413; 96415; J1745

== ENCOUNTER 2022-03-10 01:53 | Outpatient (CLI) | payer BC, SELFPAY ==
[2022-03-10 13:39] LABS: TSH 1.13 uIU/mL (0.36-3.74)
== END 2022-03-10 01:54 | disposition home or self-care (01) ==
LOC: LBO 01:53
PROVIDERS: PCP Student in an Organized Health Care Education/Training Program; Visit Provider Internal Medicine Gastroenterology
DX: K50.912 Crohn's disease, unspecified, with intestinal obstruction (principal)
CPT/HCPCS: 36410; 36415; 84443; 84590; 85025

== ENCOUNTER 2022-03-28 02:45 | Outpatient (CLI) | payer BC, SELFPAY ==
[2022-03-28 10:57] LABS: Abs Immature Grans 0.02 10^3/uL (0.0-0.06); Absolute Basophil Count 0.06 10^3/uL (0.0-0.2); Absolute Eosinophil Count 0.19 10^3/uL (0.0-0.7); Absolute Lymphocyte Count 1.43 10^3/uL (1.2-3.4); Absolute Monocyte Count 0.41 10^3/uL (0.1-0.8); Absolute Neutrophil Count 2.83 10^3/uL (1.2-6.7); Basophils % 1.2; Eosinophils % 3.8; HCT 42.2 % (36.0-46.0); HGB 14.3 g/dL (11.2-15.7); Immature Grans % 0.4; Lymphocytes % 28.9; MCH 30.6 pg (27.0-33.0); MCHC 33.9 % (32.0-36.0); MCV 90 fL (80-95); MPV 10.5 fL (8.0-11.0); Monocytes % 8.3; Neutrophils % 57.4; Platelet Count 205 10^3/uL (130-400); RBC 4.67 10^6/uL (3.93-5.22); RDW 12.3 % (11.7-14.6); RDW-SD 40.1 fL; WBC 4.94 10^3/uL (4.4-10.8)
== END 2022-03-28 02:46 | disposition home or self-care (01) ==
PROVIDERS: PCP Student in an Organized Health Care Education/Training Program; Visit Provider Internal Medicine Gastroenterology
DX: K50.90 Crohn's disease, unspecified, without complications (principal)
CPT/HCPCS: 36415; 85025

== ENCOUNTER 2022-04-06 02:44 | Outpatient (RCR) | payer BC, SELFPAY ==
[2022-03-01 00:10] VITALS: BP 109/72; PULSE 67; RESP 17; TEMP 35.8
[2022-04-06 08:45] VITALS: BP 100/65; PULSE 77; RESP 14; TEMP 37.1; O2SAT 99
[2022-04-06] MEDS: Normal Saline Flush 10 ML SYR IVP (10:57)
[2022-04-06 10:58] VITALS: BP 114/69; PULSE 77; RESP 16; TEMP 36.6; O2SAT 98
== END 2022-04-30 23:59 | disposition home or self-care (01) ==
LOC: INF 02:44
PROVIDERS: PCP Student in an Organized Health Care Education/Training Program; Visit Provider Internal Medicine
DX: K50.912 Crohn's disease, unspecified, with intestinal obstruction (principal)
CPT/HCPCS: 96365; 96413; J1745

== ENCOUNTER 2022-04-27 03:08 | Outpatient (CLI) | payer BC, SELFPAY ==
[2022-04-27 10:48] LABS: Abs Immature Grans 0.02 10^3/uL (0.0-0.06); Absolute Basophil Count 0.05 10^3/uL (0.0-0.2); Absolute Eosinophil Count 0.15 10^3/uL (0.0-0.7); Absolute Lymphocyte Count 1.36 10^3/uL (1.2-3.4); Absolute Neutrophil Count 3.23 10^3/uL (1.2-6.7); Eosinophils % 2.9; HCT 39.5 % (36.0-46.0); HGB 13.7 g/dL (11.2-15.7); Immature Grans % 0.4; Lymphocytes % 26.1; MCH 30.9 pg (27.0-33.0); MCHC 34.7 % (32.0-36.0); MCV 89 fL (80-95); MPV 10.4 fL (8.0-11.0); Monocytes % 7.7; Neutrophils % 61.9; Platelet Count 222 10^3/uL (130-400); RBC 4.43 10^6/uL (3.93-5.22); RDW 12.7 % (11.7-14.6); WBC 5.21 10^3/uL (4.4-10.8)
== END 2022-04-27 03:09 | disposition home or self-care (01) ==
LOC: LBO 03:08
PROVIDERS: Internal Medicine Gastroenterology; PCP Student in an Organized Health Care Education/Training Program; Visit Provider Student in an Organized Health Care Education/Training Program
DX: K50.912 Crohn's disease, unspecified, with intestinal obstruction (principal)
CPT/HCPCS: 36415; 85025

== ENCOUNTER 2022-05-25 03:23 | Outpatient (CLI) | payer BC, SELFPAY ==
[2022-05-25 10:47] LABS: Abs Immature Grans 0.01 10^3/uL (0.0-0.06); Absolute Basophil Count 0.05 10^3/uL (0.0-0.2); Absolute Eosinophil Count 0.19 10^3/uL (0.0-0.7); Absolute Lymphocyte Count 1.44 10^3/uL (1.2-3.4); Absolute Monocyte Count 0.27 10^3/uL (0.1-0.8); Absolute Neutrophil Count 2.25 10^3/uL (1.2-6.7); Basophils % 1.2; Eosinophils % 4.5; HCT 40.6 % (36.0-46.0); HGB 14.1 g/dL (11.2-15.7); Immature Grans % 0.2; Lymphocytes % 34.2; MCH 31.1 pg (27.0-33.0); MCHC 34.7 % (32.0-36.0); MCV 90 fL (80-95); MPV 10.2 fL (8.0-11.0); Monocytes % 6.4; Neutrophils % 53.5; Platelet Count 236 10^3/uL (130-400); RBC 4.53 10^6/uL (3.93-5.22); RDW 12.1 % (11.7-14.6); RDW-SD 39.5 fL; WBC 4.21 10^3/uL (4.4-10.8)
== END 2022-05-25 03:24 | disposition home or self-care (01) ==
PROVIDERS: PCP Student in an Organized Health Care Education/Training Program; Visit Provider Internal Medicine Gastroenterology
DX: K50.912 Crohn's disease, unspecified, with intestinal obstruction (principal)
CPT/HCPCS: 36415; 85025

== ENCOUNTER 2022-06-01 04:40 | Outpatient (RCR) | payer BC, SELFPAY ==
[2022-05-01] VITALS: BP 114/69; PULSE 77; RESP 16; TEMP 36.6
[2022-06-01 08:00] VITALS: BP 130/73; PULSE 68; RESP 18; TEMP 36.5; O2SAT 99
[2022-06-01] MEDS: Normal Saline Flush 10 ML SYR IVP (08:38)
[2022-06-01 10:47] VITALS: BP 154/91; PULSE 66; RESP 18; TEMP 36.6; O2SAT 100
== END 2022-06-30 23:59 | disposition home or self-care (01) ==
LOC: INF 04:40
PROVIDERS: PCP Student in an Organized Health Care Education/Training Program; Visit Provider Internal Medicine
DX: K50.912 Crohn's disease, unspecified, with intestinal obstruction (principal)
CPT/HCPCS: 96365; 96366; 96413; 96415; J1745

== ENCOUNTER 2022-06-27 03:15 | Outpatient (CLI) | payer BC, SELFPAY ==
[2022-06-27 10:24] LABS: Abs Immature Grans 0.01 10^3/uL (0.0-0.06); Absolute Basophil Count 0.06 10^3/uL (0.0-0.2); Absolute Eosinophil Count 0.19 10^3/uL (0.0-0.7); Absolute Lymphocyte Count 1.46 10^3/uL (1.2-3.4); Absolute Monocyte Count 0.28 10^3/uL (0.1-0.8); Absolute Neutrophil Count 2.16 10^3/uL (1.2-6.7); Basophils % 1.4; Eosinophils % 4.6; HCT 41.7 % (36.0-46.0); HGB 14.3 g/dL (11.2-15.7); Immature Grans % 0.2; Lymphocytes % 35.1; MCH 30.6 pg (27.0-33.0); MCHC 34.3 % (32.0-36.0); MCV 89 fL (80-95); MPV 10.1 fL (8.0-11.0); Monocytes % 6.7; Platelet Count 214 10^3/uL (130-400); RBC 4.67 10^6/uL (3.93-5.22); RDW-SD 38.5 fL; WBC 4.16 10^3/uL (4.4-10.8)
== END 2022-06-27 03:16 | disposition home or self-care (01) ==
PROVIDERS: PCP Student in an Organized Health Care Education/Training Program; Visit Provider Internal Medicine Gastroenterology
DX: K50.80 Crohn's disease of both small and large intestine without complications
CPT/HCPCS: 36415; 85025

== ENCOUNTER 2022-07-27 03:39 | Outpatient (RCR) | payer BC, SELFPAY ==
[2022-07-01 00:15] VITALS: BP 154/91; PULSE 66; RESP 18; TEMP 36.6
[2022-07-27 08:01] LABS: Abs Immature Grans 0.02 10^3/uL (0.0-0.06); Absolute Basophil Count 0.07 10^3/uL (0.0-0.2); Absolute Monocyte Count 0.38 10^3/uL (0.1-0.8); Absolute Neutrophil Count 2.25 10^3/uL (1.2-6.7); Basophils % 1.5; Eosinophils % 6.6; HCT 42.1 % (36.0-46.0); HGB 14.4 g/dL (11.2-15.7); Immature Grans % 0.4; Lymphocytes % 33.2; MCH 30.4 pg (27.0-33.0); MCHC 34.2 % (32.0-36.0); MCV 89 fL (80-95); MPV 10.6 fL (8.0-11.0); Monocytes % 8.4; Neutrophils % 49.9; Platelet Count 231 10^3/uL (130-400); RBC 4.74 10^6/uL (3.93-5.22); RDW 12.3 % (11.7-14.6); RDW-SD 40.1 fL; WBC 4.52 10^3/uL (4.4-10.8)
[2022-07-27] MEDS: Normal Saline Flush 10 ML SYR IVP (08:20)
[2022-07-27 10:26] VITALS: BP 126/68; PULSE 65; RESP 18; TEMP 36.6; O2SAT 100
== END 2022-07-31 23:59 | disposition home or self-care (01) ==
LOC: INF 03:39
PROVIDERS: Internal Medicine Gastroenterology; PCP Student in an Organized Health Care Education/Training Program; Visit Provider Internal Medicine
DX: K50.912 Crohn's disease, unspecified, with intestinal obstruction (principal)
CPT/HCPCS: 36415; 96365; 96366; 96413; 96415; 85025; J1745

== ENCOUNTER 2022-08-18 13:44 | Outpatient (REF) | payer BC, SELFPAY ==
[2022-08-21 20:16] LABS: Calprotectin <50.0 mcg/g
== END 2022-08-18 13:45 | disposition home or self-care (01) ==
LOC: LBN 13:44
PROVIDERS: PCP Student in an Organized Health Care Education/Training Program; Visit Provider Internal Medicine Gastroenterology
DX: K50.912 Crohn's disease, unspecified, with intestinal obstruction (principal)
CPT/HCPCS: 83630; 83993

== ENCOUNTER 2022-09-29 03:13 | Outpatient (CLI) | payer BC, SELFPAY ==
[2022-09-29 09:48] LABS: Abs Immature Grans 0.01 10^3/uL (0.0-0.06); Absolute Basophil Count 0.08 10^3/uL (0.0-0.2); Absolute Eosinophil Count 0.23 10^3/uL (0.0-0.7); Absolute Lymphocyte Count 1.65 10^3/uL (1.2-3.4); Absolute Monocyte Count 0.32 10^3/uL (0.1-0.8); Absolute Neutrophil Count 2.04 10^3/uL (1.2-6.7); Basophils % 1.8; Eosinophils % 5.3; HCT 41.5 % (36.0-46.0); HGB 14.3 g/dL (11.2-15.7); Immature Grans % 0.2; Lymphocytes % 38.1; MCH 30.7 pg (27.0-33.0); MCHC 34.5 % (32.0-36.0); MCV 89 fL (80-95); MPV 10.3 fL (8.0-11.0); Monocytes % 7.4; Neutrophils % 47.2; Platelet Count 212 10^3/uL (130-400); RBC 4.66 10^6/uL (3.93-5.22); RDW 11.9 % (11.7-14.6); RDW-SD 38.9 fL; WBC 4.33 10^3/uL (4.4-10.8)
== END 2022-09-29 03:14 | disposition home or self-care (01) ==
PROVIDERS: PCP Student in an Organized Health Care Education/Training Program; Visit Provider Internal Medicine Gastroenterology
DX: K50.912 Crohn's disease, unspecified, with intestinal obstruction (principal)
CPT/HCPCS: 36415; 85025

== ENCOUNTER 2022-10-31 03:17 | Outpatient (CLI) | payer BC, SELFPAY ==
[2022-10-31 12:20] LABS: Abs Immature Grans 0.01 10^3/uL (0.0-0.06); Absolute Basophil Count 0.06 10^3/uL (0.0-0.2); Absolute Eosinophil Count 0.13 10^3/uL (0.0-0.7); Absolute Lymphocyte Count 1.58 10^3/uL (1.2-3.4); Eosinophils % 2.2; HCT 40.4 % (36.0-46.0); HGB 13.7 g/dL (11.2-15.7); Immature Grans % 0.2; Lymphocytes % 26.9; MCH 30.1 pg (27.0-33.0); MCHC 33.9 % (32.0-36.0); MCV 89 fL (80-95); MPV 10.6 fL (8.0-11.0); Monocytes % 6.8; Neutrophils % 62.9; Platelet Count 265 10^3/uL (130-400); RBC 4.55 10^6/uL (3.93-5.22); RDW 11.9 % (11.7-14.6); RDW-SD 37.7 fL; WBC 5.88 10^3/uL (4.4-10.8)
== END 2022-10-31 03:18 | disposition home or self-care (01) ==
LOC: LBO 03:17
PROVIDERS: PCP Student in an Organized Health Care Education/Training Program; Visit Provider Internal Medicine Gastroenterology
DX: K50.912 Crohn's disease, unspecified, with intestinal obstruction (principal)
CPT/HCPCS: 36415; 85025

== ENCOUNTER 2022-11-13 15:07 | Outpatient (REF) | payer BC, SELFPAY ==
[2022-11-17 11:10] LABS: Calprotectin <50.0 mcg/g
[2022-11-22 19:25] LABS: Lactoferrin, Qt, Stool <6.25 mcg/mL (<7.25)
== END 2022-11-13 15:08 | disposition home or self-care (01) ==
LOC: NCHCN 15:07
PROVIDERS: PCP Student in an Organized Health Care Education/Training Program; Visit Provider Internal Medicine Gastroenterology
DX: K50.912 Crohn's disease, unspecified, with intestinal obstruction (principal)
CPT/HCPCS: 83631; 83993

== ENCOUNTER 2023-01-15 10:10 | Outpatient (REF) | payer BC, SELFPAY ==
[2023-01-19 17:46] LABS: Calprotectin <50.0 mcg/g
[2023-01-24 23:25] LABS: Lactoferrin, Qt, Stool <6.25 mcg/mL (<7.25)
== END 2023-01-15 10:11 | disposition home or self-care (01) ==
LOC: LBN 10:10
PROVIDERS: PCP Student in an Organized Health Care Education/Training Program; Visit Provider Internal Medicine Gastroenterology
DX: K50.912 Crohn's disease, unspecified, with intestinal obstruction (principal)
CPT/HCPCS: 83631; 83993

== ENCOUNTER 2023-04-19 10:02 | Outpatient (REF) | payer BC, SELFPAY ==
[2023-04-23 15:02] LABS: Calprotectin <50.0 mcg/g
== END 2023-04-19 10:03 | disposition home or self-care (01) ==
LOC: LBN 10:02
PROVIDERS: PCP Student in an Organized Health Care Education/Training Program; Visit Provider Internal Medicine Gastroenterology
DX: K50.112 Crohn's disease of large intestine with intestinal obstruction (principal)
CPT/HCPCS: 83630; 83993

== ENCOUNTER 2023-07-23 18:28 | Outpatient (REF) | payer BC, SELFPAY ==
[2023-07-25 22:11] LABS: Calprotectin <50.0 mcg/g
[2023-07-28 17:27] LABS: Lactoferrin, Qt, Stool <6.25 mcg/mL (<7.25)
== END 2023-07-23 18:29 | disposition home or self-care (01) ==
LOC: LBN 18:28
PROVIDERS: PCP Student in an Organized Health Care Education/Training Program; Visit Provider Internal Medicine Gastroenterology
DX: K50.112 Crohn's disease of large intestine with intestinal obstruction (principal)
CPT/HCPCS: 83631; 83993

== ENCOUNTER 2023-12-18 12:25 | Outpatient (REF) | payer SELFPAY ==
[2023-12-20 21:58] LABS: Calprotectin <50.0 mcg/g
[2023-12-26 19:28] LABS: Lactoferrin, Qt, Stool <6.25 mcg/mL (<7.25)
== END 2023-12-18 12:26 | disposition home or self-care (01) ==
LOC: LBN 12:25
PROVIDERS: PCP Student in an Organized Health Care Education/Training Program; Visit Provider Internal Medicine Gastroenterology
DX: K50.912 Crohn's disease, unspecified, with intestinal obstruction (principal)
CPT/HCPCS: 83631; 83993

== ENCOUNTER 2024-06-20 09:58 | Outpatient (REF) | payer SELFPAY ==
[2024-06-24 16:42] LABS: Calprotectin <50.0 mcg/g
[2024-06-28 23:27] LABS: Lactoferrin, Qt, Stool <6.25 mcg/mL (<7.25)
== END 2024-06-20 09:59 | disposition home or self-care (01) ==
LOC: LBN 09:58
PROVIDERS: PCP Student in an Organized Health Care Education/Training Program; Visit Provider Internal Medicine Gastroenterology
DX: K50.912 Crohn's disease, unspecified, with intestinal obstruction (principal)
CPT/HCPCS: 83631; 83993